=== PATIENT | male | born 1950 | race Hispanic/Latino ===

== ENCOUNTER 2017-08-25 06:00 | Day surgery (SDC) | payer MEDICARE, BC ==
[2017-08-25 06:53] VITALS: BMI 20.5
[2017-08-25] MEDS ORDERED: Propofol 10 mg/ml Inj (20 ML) ONE (07:53)
[2017-08-25] MEDS ORDERED: Midazolam 2 MG/2 ML VIAL ONE (07:54)
[2017-08-25] MEDS ORDERED: Lactated Ringer's 1,000 ML IV ONE (07:55)
[2017-08-25 08:45] VITALS: TEMP 98.4
[2017-08-25 09:06] VITALS: RESP 12; O2SAT 99
[2017-08-25 09:21] VITALS: BP 110/70; PULSE 88
== END 2017-08-25 12:55 | disposition home or self-care (01) ==
LOC: C.ENDO 06:00
PROVIDERS: ATTEND Internal Medicine Gastroenterology
DX: D12.2 Benign neoplasm of ascending colon (principal); D12.5 Benign neoplasm of sigmoid colon; K57.30 Diverticulosis of large intestine without perforation or abscess without bleeding; K64.0 First degree hemorrhoids; K62.89 Other specified diseases of anus and rectum
CPT/HCPCS: 45380; 45385; 88305; J2001; J2250; J2704; J7120

== ENCOUNTER 2018-02-19 02:49 | Emergency (ER) | payer MEDICARE, BC ==
[2018-02-19 02:50] VITALS: BMI 20.5
[2018-02-19 03:09] VITALS: RESP 20; O2SAT 98
--- NOTE | 2018-02-19 03:10 | C.PDOC ---
History Of Present Illness 67 year old male with PMHx with BPH presents to the ED c/o worsening ability to urinate and narrow stream. Patient reports he usually sees a urologist. Patient also noticed some frequency and urgency. Patient denies dysuria, hematuria, back pain, fever, chills, nausea, vomit, diarrhea. Chief Complaint (Nursing): Male Genitourinary History Per: Patient History/Exam Limitations: no limitations Onset/Duration Of Symptoms: Days Current Symptoms Are (Timing): Still Present Quality Of Discomfort: "Pain" Associated Symptoms: Urinary Symptoms Recent travel outside of the [place]: No Additional History Per: Patient Past Medical History Reviewed: Historical Data, Nursing Documentation, Vital Signs Vital Signs: Last Vital Signs Temp 97.6 F 02/19/18 05:39 Pulse 81 02/19/18 05:39 Resp 20 02/19/18 05:39 BP 133/78 02/19/18 05:39 Pulse Ox 98 02/19/18 05:39 - Medical History PMH: HTN, Hypercholesterolemia Denies: Chronic Kidney Disease Surgical History: No Surg Hx - [facility] Procedures ENDOSC POLYPECTOMY OF LG INTEST (11/08/13) Family History: States: Unknown Family Hx - Social History Hx Alcohol Use: Yes Hx Substance Use: No - Immunization History Hx Tetanus Toxoid Vaccination: No Hx Influenza Vaccination: No Hx Pneumococcal Vaccination: No Review Of Systems Constitutional: Negative for: Fever, Chills Cardiovascular: Negative for: Chest Pain Respiratory: Negative for: Shortness of Breath Gastrointestinal: Positive for: Abdominal Pain. Negative for: Nausea, Vomiting Genitourinary: Positive for: Frequency. Negative for: Dysuria, Hematuria Musculoskeletal: Negative for: Back Pain Skin: Negative for: Rash Physical Exam - Physical Exam Appears: Non-toxic, No Acute Distress Skin: Normal Color, Warm, Dry Head: Atraumatic, Normacephalic Eye(s): bilateral: Normal Inspection Oral Mucosa: Moist Neck: Normal ROM, Supple Chest: Symmetrical Cardiovascular: Rhythm Regular Respiratory: Normal Breath Sounds, No Rales, No Rhonchi, No Wheezing Gastrointestinal/Abdominal: Soft, Tenderness (mild suprapubic, fullness, firmness), No Guarding, No Rebound Back: Normal Inspection, No CVA Tenderness Male Genital: No Testicular Tenderness, No Testicular Swelling, Circumcised Extremity: Normal ROM, No Tenderness, No Swelling Neurological/Psych: Oriented x3, Normal Speech Gait: Steady ED Course And Treatment O2 Sat by Pulse Oximetry: 98 (ON RA) Pulse Ox Interpretation: Normal Medical Decision Making Medical Decision Making: Impression: urinary retention BPH vs UTI Plan: * UA * Bladder scan * Urine culture Disposition - Disposition Referrals: Ti Deshpande MD [Staff Provider] - Disposition: HOME/ ROUTINE Disposition Time: 06:39 Condition: FAIR Instructions: Urinary Retention Forms: [facility] [employer] (Welsh) Print Language: TURKISH - Clinical Impression Clinical Impression: Urinary (tract) obstruction - Scribe Statement The provider has reviewed the documentation as recorded by the Scribe Micha Medellin All medical record entries made by the Scribe were at my direction and personally dictated by me. I have reviewed the chart and agree that the record accurately reflects my personal performance of the history, physical exam, medical decision making, and the department course for this patient. I have also personally directed, reviewed, and agree with the discharge instructions and disposition.
[2018-02-19 03:40] LABS: URINE BILIRUBIN NEGATIVE (NEGATIVE); URINE BLOOD NEGATIVE (NEGATIVE); URINE CLARITY Clear (Clear); URINE COLOR Straw (YELLOW); URINE GLUCOSE (UA) NORMAL (Normal); URINE LEUKOCYTE ESTERASE NEG Leu/uL (Negative); URINE PROTEIN NEGATIVE (NEGATIVE); URINE UROBILINOGEN NORMAL mg/dL (0.2-1.0)
[2018-02-19 05:40] VITALS: BP 133/78; PULSE 81; TEMP 97.6
== END 2018-02-19 05:42 | disposition home or self-care (01) ==
LOC: C.ER 02:49
DX: N13.9 Obstructive and reflux uropathy, unspecified (principal)

== ENCOUNTER 2018-02-19 15:46 | Emergency (ER) | payer MEDICARE, BC ==
[2018-02-19 15:49] VITALS: BMI 20.5
[2018-02-19 16:12] VITALS: RESP 18
--- NOTE | 2018-02-19 17:15 | C.PDOC ---
History Of Present Illness 67-year-old male presents to the emergency department complaining of urinary retention since this morning. He was seen in ED overnight, had a bladder scan which confirmed urinary retention, and UA that was negative for UTI. Patient had a cabrera catheter inserted but then requested its removal prior to discharge. He denies fever, nausea/vomiting, diarrhea. Time Seen by Provider: 02/19/18 16:05 Chief Complaint (Nursing): Male Genitourinary History Per: Patient History/Exam Limitations: no limitations Current Symptoms Are (Timing): Still Present Severity: Moderate Quality Of Discomfort: "Pain" Past Medical History Reviewed: Historical Data, Nursing Documentation, Vital Signs Vital Signs: Last Vital Signs Temp 98.6 F 02/19/18 17:49 Pulse 85 02/19/18 17:49 Resp 18 02/19/18 17:49 BP 146/80 02/19/18 17:49 Pulse Ox 100 02/19/18 17:49 - Medical History PMH: HTN, Hypercholesterolemia - [facility] Procedures ENDOSC POLYPECTOMY OF LG INTEST (11/08/13) Family History: States: No Known Family Hx - Social History Hx Alcohol Use: Yes Hx Substance Use: No - Immunization History Hx Tetanus Toxoid Vaccination: No Hx Influenza Vaccination: Yes Hx Pneumococcal Vaccination: Yes Review Of Systems Constitutional: Negative for: Fever, Chills Gastrointestinal: Positive for: Abdominal Pain (suprapubic discomfort/pain). Negative for: Nausea, Vomiting Genitourinary: Positive for: Other (urinary retention) Skin: Negative for: Rash Physical Exam - Physical Exam Appears: Well, Non-toxic, No Acute Distress Skin: Warm, Dry, No Rash Eye(s): bilateral: Normal Inspection Oral Mucosa: Moist Cardiovascular: Rhythm Regular Respiratory: Normal Breath Sounds, No Rales, No Rhonchi, No Wheezing Gastrointestinal/Abdominal: Bowel Sounds, Soft, Tenderness (Mild, suprapubic TTP and distension, (-) McBurney's), No Guarding, No Rebound Extremity: Normal ROM Neurological/Psych: Oriented x3 ED Course And Treatment O2 Sat by Pulse Oximetry: 98 (RA) Pulse Ox Interpretation: Normal Progress Note: Cabrera catheter inserted by nurse - 1500 mL of clear urine drained. Patient felt immediate relief of his discomfort. UA from earlier today reviewed - no evidence of UTI, no need for antibiotics. Patient given Rx for flomax and instructed to follow up with Dr. Deshpande as scheduled. Cabrera leg bag applied by nurse. Patient understands he should return to ED if symptoms worsen. Reassessment Condition: Improved - Physician Consult Information Physician Contacted: Ti Deshpande Outcome Of Conversation: Spoke with patient's urologist, he agrees with discharge home on Flomax and follow up with him in the office. Disposition Counseled Patient/Family Regarding: Studies Performed, Diagnosis, Need For Followup, Rx Given - Disposition Referrals: Ti Deshpande MD [Staff Provider] - Disposition: HOME/ ROUTINE Disposition Time: 17:30 Condition: STABLE Additional Instructions: FOLLOW UP WITH DR TI DESHPANDE TOMORROW AT 8:30AM IN [place] OFF[facility] USE MEDICATIONS DIRECTED RETURN TO ER IF YOU HAVE ANY CONCERNING SYMPTOMS Prescriptions: Phenazopyridine [Pyridium] 100 mg PO TID #9 tab Tamsulosin [Flomax] 0.4 mg PO DAILY #5 cap Instructions: Urinary Retention (DC) Forms: [employer] (Thai) Print Language: MACEDONIAN - Clinical Impression Clinical Impression: Urinary retention - Scribe Statement The provider has reviewed the documentation as recorded by the Scribe (Yamile Deluca) All medical record entries made by the Scribe were at my direction and personally dictated by me. I have reviewed the chart and agree that the record accurately reflects my personal performance of the history, physical exam, medical decision making, and the department course for this patient. I have also personally directed, reviewed, and agree with the discharge instructions and disposition.
[2018-02-19 17:50] VITALS: BP 146/80; PULSE 85; TEMP 98.6
[2018-02-21 18:17] VITALS: O2SAT 98
== END 2018-02-19 17:50 | disposition home or self-care (01) ==
LOC: C.ER 15:46
DX: R33.9 Retention of urine, unspecified (principal)

== ENCOUNTER 2018-05-15 09:52 | Inpatient (IN) | payer MEDICARE, BC ==
[2018-05-15 09:52] VITALS: BMI 20.5
[2018-05-15] MEDS ORDERED: Sodium Chloride 0.9% 1,000 ML IV ONE (10:18)
--- NOTE | 2018-05-15 10:26 | C.PDOC ---
History Of Present Illness 68yo male, with history of hypertension, comes to ER stating he has had watery diarrhea x 3 days. Patient reports he has over 5 episodes over the past 3 days and feels dehydrated. He denies any fever, chills, abdominal pain, vomiting, or weakness. Patient also denies any new foods, new antibiotics use, recent travels or known sick contact. No other medical complaints. PMD: Juan Daniel Ridley Time Seen by Provider: 05/15/18 10:10 Chief Complaint (Nursing): Abdominal Pain History Per: Patient History/Exam Limitations: no limitations Onset/Duration Of Symptoms: Days (3) Current Symptoms Are (Timing): Still Present Associated Symptoms: Diarrhea. denies: Fever, Chills, Nausea, Vomiting, Loss Of Appetite, Back Pain, Chest Pain, Constipation, Urinary Symptoms Additional History Per: Patient Past Medical History Reviewed: Historical Data, Nursing Documentation, Vital Signs Vital Signs: Last Vital Signs Temp 100.3 F H 05/15/18 17:52 Pulse 110 H 05/15/18 17:52 Resp 18 05/15/18 17:52 BP 121/71 05/15/18 17:52 Pulse Ox 98 05/15/18 17:52 - Medical History PMH: HTN, Hypercholesterolemia Denies: Chronic Kidney Disease Surgical History: No Surg Hx - [facility] Procedures ENDOSC POLYPECTOMY OF LG INTEST (11/08/13) Family History: States: No Known Family Hx - Social History Hx Alcohol Use: Yes Hx Substance Use: No - Immunization History Hx Tetanus Toxoid Vaccination: No Hx Influenza Vaccination: Yes Hx Pneumococcal Vaccination: Yes Review Of Systems Except As Marked, All Systems Reviewed And Found Negative. Constitutional: Negative for: Fever, Chills Cardiovascular: Negative for: Chest Pain Respiratory: Negative for: Shortness of Breath Gastrointestinal: Positive for: Diarrhea. Negative for: Nausea, Vomiting, Abdominal Pain Genitourinary: Negative for: Dysuria Musculoskeletal: Negative for: Back Pain Neurological: Negative for: Weakness Physical Exam - Physical Exam Appears: Non-toxic, No Acute Distress Skin: Normal Color, Warm Head: Atraumatic, Normacephalic Eye(s): bilateral: Normal Inspection Neck: Normal ROM, Supple Chest: Symmetrical Cardiovascular: Rhythm Regular Respiratory: Normal Breath Sounds Gastrointestinal/Abdominal: Normal Exam, Soft, No Tenderness, No Mass, No Guardi ng, No Rebound Extremity: Normal ROM Neurological/Psych: Oriented x3 ED Course And Treatment - Laboratory Results Result Diagrams: 05/15/18 14:25 05/15/18 14:25 Medical Decision Making Medical Decision Making: Assessment: Diarrhea x 3 days Plan: * Labs * Urinalysis * XR Obstructive series * IV Fluids 1L 12:28 CXR FINDINGS: CHEST: Lungs: Hyperinflated lungs with flattened diaphragms. Clear. Cardiovascular: Atherosclerotic aortic calcifications. Normal size heart. No pulmonary vascular congestion. Pleura: No pleural fluid. No pneumothorax. Other findings: None. ABDOMEN AND PELVIS: Bowel: Unremarkable bowel gas pattern. No evidence of mechanical obstruction. Free air: None. Bones: Unremarkable. Other findings: None. IMPRESSION: Unremarkable radiographs of chest and abdomen. No evidence of mechanical bowel obstruction. 13:28 Labs reviewed, significant for bandemia. CT Abdomen/Pelvis ordered 16:21 CT Study done secondary to bandemia, however repeat labs shows no bandemia; rest values within normal limits. Previous value attributed to lab error. 16:36 CT Abdomen/Pelvis FINDINGS: LOWER THORAX: The visualized lungs are clear. LIVER: Normal in size. No intrahepatic ductal dilatation. GALLBLADDER AND BILE DUCTS: No calcified gallstones. No biliary dilatation PANCREAS: Normal in size. No ductal dilatation. SPLEEN: Normal in size. ADRENALS: Normal in size. No discrete nodule. KIDNEYS AND URETERS: Normal in size without nephrolithiasis. No hydronephrosis. VASCULATURE: No aortic aneurysm. BOWEL: There are fluid-filled mildly dilated small bowel loops and fluid in the colon. There is also fluid in the colon. There is sigmoid diverticulosis. There is apparent moderate mural thickening in the sigmoid colon. APPENDIX: Normal appendix. PERITONEUM: No free fluid. No free air. LYMPH NODES: No enlarged lymph nodes. BLADDER: The urinary bladder is partially decompressed and there is severe circumferential mural thickening of the bladder wall. REPRODUCTIVE: There is severe enlargement of the prostate gland with median lobe hypertrophy and mass effect on the base of the urinary bladder with bladder outlet obstruction. BONES: No acute fracture. Severe degenerative disc disease in the lower lumbar spine, worse at L5-S1. OTHER FINDINGS: None. IMPRESSION: 1. Fluid-filled mildly dilated small bowel loops and fluid in the colon likely related to non-specific infectious/inflammatory enterocolitis. 2. Sigmoid diverticulosis. Apparent moderate circumferential mural thickening in the sigmoid colon is nonspecific and could be related to underdistention however mild superimposed acute diverticulitis cannot be excluded. Clinical follow-up is advised. 3. Severe enlargement of the prostate gland and mass effect on the base of the urinary bladder. Severe circumferential mural thickening of the urinary bladder wall could be related to underdistention however cystitis is also a consideration. Please correlate with PSA levels and urine analysis. 17:[address] Epstein and patient to be admitted under her service due to acute kidney injury, diarrhea, hyponatremia Disposition Discussed With Dr.: Gracie Epstein Doctor Will See Patient In The: Hospital Counseled Patient/Family Regarding: Studies Performed, Diagnosis - Disposition Disposition: HOSPITALIZED Disposition Time: 17:20 Condition: FAIR - Clinical Impression Clinical Impression: Acute kidney injury, Diarrhea, Hyponatremia - Scribe Statement The provider has reviewed the documentation as recorded by the Sathish Arredondo Provider Attestation: All medical record entries made by the Sathish were at my direction and personally dictated by me. I have reviewed the chart and agree that the record accurately reflects my personal performance of the history, physical exam, medical decision making, and the department course for this patient. I have also personally directed, reviewed, and agree with the discharge instructions and disposition.
[2018-05-15 10:38] LABS: BASO # 0.1 K/uL (0.0-0.2); EOS # 0.1 K/uL (0.0-0.7); EOS % 0.5 % (0.0-4.0); HEMOGLOBIN 15.1 g/dL (12.0-18.0); LYMPH # 0.7 K/uL (1.0-4.3); LYMPH % 6.7 % (20.0-40.0); MEAN CELL VOLUME 98.3 fL (80.0-94.0); MEAN CORPUSCULAR HEMOGLOBIN 34.6 pg (27.0-31.0); MEAN CORPUSCULAR HGB CONC 35.1 g/dL (33.0-37.0); MEAN PLATELET VOLUME 7.3 fL (7.2-11.7); MONO # 1.1 K/uL (0.0-0.8); MONO % 10.1 % (0.0-10.0); NEUT # 8.8 K/uL (1.8-7.0); NEUT % 81.7 % (50.0-75.0); PLATELET COUNT 311 K/uL (130-400); RBC 4.38 Mil/uL (4.40-5.90); RED CELL DISTRIBUTION WIDTH 13.3 % (11.5-14.5); WHITE BLOOD COUNT 10.7 K/uL (4.8-10.8)
[2018-05-15] MEDS ORDERED: Sodium Chloride 0.9% 1,000 ML ONE (10:43)
[2018-05-15 10:54] LABS: ALB/GLOB RATIO 1.5 (1.0-2.1); ALBUMIN 4.8 g/dL (3.5-5.0); CALCIUM 9.5 mg/dl (8.6-10.4)
[2018-05-15 11:24] LABS: BANDS 34 % (0-2); LYMPHOCYTE 8 % (20-40); METAMYELOCYTE 1 % (0-0); MONOCYTE 12 % (0-10); MYELOCYTE 1 % (0-0); PLATELET ESTIMATE NORMAL (NORMAL); REACTIVE LYMPHOCYTES 2 % (0-0); TOTAL CELLS COUNTED 100
[2018-05-15 11:25] LABS: LARGE PLATELETS PRESENT; TOXIC GRANULATION PRESENT
[2018-05-15 11:26] LABS: NEUTROPHIL 42 % (50-75)
--- NOTE | 2018-05-15 12:30 | RAD ---
Date of service: 05/15/2018 PROCEDURE: Radiographs of the chest and abdomen (obstructive series) HISTORY: abd pain COMPARISON: No prior. TECHNIQUE: AP radiograph of the chest, with upright and supine radiographs of the abdomen. FINDINGS: CHEST: Lungs: Hyperinflated lungs with flattened diaphragms. Clear. Cardiovascular: Atherosclerotic aortic calcifications. Normal size heart. No pulmonary vascular congestion. Pleura: No pleural fluid. No pneumothorax. Other findings: None. ABDOMEN AND PELVIS: Bowel: Unremarkable bowel gas pattern. No evidence of mechanical obstruction. Free air: None. Bones: Unremarkable. Other findings: None. IMPRESSION: Unremarkable radiographs of chest and abdomen. No evidence of mechanical bowel obstruction.
[2018-05-15 14:35] LABS: BASO # 0.1 K/uL (0.0-0.2); BASO % 0.8 % (0.0-2.0); EOS % 0.4 % (0.0-4.0); HEMOGLOBIN 13.7 g/dL (12.0-18.0); LYMPH # 0.6 K/uL (1.0-4.3); MEAN CORPUSCULAR HEMOGLOBIN 34.8 pg (27.0-31.0); MEAN CORPUSCULAR HGB CONC 35.5 g/dL (33.0-37.0); MEAN PLATELET VOLUME 7.5 fL (7.2-11.7); NEUT # 6.6 K/uL (1.8-7.0); NEUT % 79.8 % (50.0-75.0); NRBC % 0.1 % (0.0-2.0); PLATELET COUNT 277 K/uL (130-400); RBC 3.95 Mil/uL (4.40-5.90); RED CELL DISTRIBUTION WIDTH 12.9 % (11.5-14.5); WHITE BLOOD COUNT 8.3 K/uL (4.8-10.8)
[2018-05-15 14:54] LABS: ALB/GLOB RATIO 1.3 (1.0-2.1); ALBUMIN 3.9 g/dL (3.5-5.0); CALCIUM 8.4 mg/dl (8.6-10.4)
[2018-05-15 15:41] LABS: SQUAMOUS EPITHIAL 2 /hpf (0-5); URINE AMORPHOUS SEDIMENT RARE /ul (<OCC); URINE BACTERIA RARE (<OCC); URINE BILIRUBIN NEGATIVE (NEGATIVE); URINE BLOOD NEGATIVE (NEGATIVE); URINE CLARITY Hazy (Clear); URINE COLOR Amber (YELLOW); URINE GLUCOSE (UA) NORMAL (Normal); URINE LEUKOCYTE ESTERASE NEG Leu/uL (Negative); URINE PROTEIN NEGATIVE (NEGATIVE); URINE UROBILINOGEN NORMAL mg/dL (0.2-1.0)
--- NOTE | 2018-05-15 16:51 | CT ---
Date of service: 05/15/2018 PROCEDURE: CT Abdomen and Pelvis without intravenous contrast HISTORY: diarrhea COMPARISON: None. TECHNIQUE: CT scan of the abdomen and pelvis was performed without administration of intravenous contrast. Oral contrast was not administered. Coronal and sagittal reformatted images were obtained. . Radiation dose: Total exam DLP = 224.14 mGy-cm. This CT exam was performed using one or more of the following dose reduction techniques: Automated exposure control, adjustment of the mA and/or kV according to patient size, and/or use of iterative reconstruction technique. FINDINGS: LOWER THORAX: The visualized lungs are clear. LIVER: Normal in size. No intrahepatic ductal dilatation. GALLBLADDER AND BILE DUCTS: No calcified gallstones. No biliary dilatation PANCREAS: Normal in size. No ductal dilatation. SPLEEN: Normal in size. ADRENALS: Normal in size. No discrete nodule. KIDNEYS AND URETERS: Normal in size without nephrolithiasis. No hydronephrosis. VASCULATURE: No aortic aneurysm. BOWEL: There are fluid-filled mildly dilated small bowel loops and fluid in the colon. There is also fluid in the colon. There is sigmoid diverticulosis. There is apparent moderate mural thickening in the sigmoid colon. APPENDIX: Normal appendix. PERITONEUM: No free fluid. No free air. LYMPH NODES: No enlarged lymph nodes. BLADDER: The urinary bladder is partially decompressed and there is severe circumferential mural thickening of the bladder wall. REPRODUCTIVE: There is severe enlargement of the prostate gland with median lobe hypertrophy and mass effect on the base of the urinary bladder with bladder outlet obstruction. BONES: No acute fracture. Severe degenerative disc disease in the lower lumbar spine, worse at L5-S1. OTHER FINDINGS: None. IMPRESSION: 1. Fluid-filled mildly dilated small bowel loops and fluid in the colon likely related to non-specific infectious/inflammatory enterocolitis. 2. Sigmoid diverticulosis. Apparent moderate circumferential mural thickening in the sigmoid colon is nonspecific and could be related to underdistention however mild superimposed acute diverticulitis cannot be excluded. Clinical follow-up is advised. 3. Severe enlargement of the prostate gland and mass effect on the base of the urinary bladder. Severe circumferential mural thickening of the urinary bladder wall could be related to underdistention however cystitis is also a consideration. Please correlate with PSA levels and urine analysis.
[2018-05-15 17:45] LABS: BANDS 38 % (0-2); LYMPHOCYTE 8 % (20-40); MONOCYTE 13 % (0-10); NEUTROPHIL 41 % (50-75); PLATELET ESTIMATE NORMAL (NORMAL); TOTAL CELLS COUNTED 100
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
[2018-05-15] MEDS ORDERED: Ciprofloxacin 400mg/200ml D5W 400 MG/200 ML BAG IVPB SCH (18:45)
[2018-05-15] MEDS ORDERED: metroNIDAZOLE IV 500 mg/100 ml 500 MG/100 ML BAG ONE (18:53)
[2018-05-15] MEDS: metroNIDAZOLE IV 500 mg/100 ml 500 MG/100 ML BAG IVPB SCH (18:59)
[2018-05-15 19:27] VITALS: RESP 20
[2018-05-15] MEDS: Potassium Ch 20mEq in D5-1/2NS 1,000 ML IV SCH (20:17)
[2018-05-15 20:39] LABS: VENOUS BLOOD GAS BASE EXCESS -7.7 mmol/L (0.0-2.0); VENOUS BLOOD GAS PCO2 29 mmHg (40-60); VENOUS BLOOD GAS PO2 69 mm/Hg (30-55); VENOUS BLOOD PH 7.36 (7.32-7.43)
[2018-05-15] MEDS: Piperacill/Tazo 2.25gm in Dex 2.25 GM/50 ML BAG IVPB SCH (22:49)
--- NOTE | 2018-05-15 23:26 | CP.PCM.CON ---
History of Present Illness - History of Present Illness History of Present Illness: pt is seen and examined, full consult is dictated #[id number] labs reviewed 1. TRACEY 2. dehydration sec to GI loss 3. Diarrhea r/o food poisioning 4. r/o divericulitis 5. BPH agree with ivf c/w ivf , check blood c/s urine c/s, stool for ova, parasite, c/s, uriene lytes , osm, cr Past Patient History - Infectious Disease Hx of Infectious Diseases: None - Past Medical History & Family History Past Medical History?: Yes - Past Social History Smoking Status: Former Smoker - CARDIAC Hx Cardiac Disorders: Yes Hx Hypercholesterolemia: Yes Hx Hypertension: Yes - PULMONARY Hx Respiratory Disorders: No - NEUROLOGICAL Hx Neurological Disorder: No - HEENT Hx HEENT Problems: No - RENAL Hx Chronic Kidney Disease: No - ENDOCRINE/METABOLIC Hx Endocrine Disorders: No - HEMATOLOGICAL/ONCOLOGICAL Hx Blood Disorders: No - INTEGUMENTARY Hx Dermatological Problems: No - MUSCULOSKELETAL/RHEUMATOLOGICAL Hx Falls: No - GASTROINTESTINAL Hx Gastrointestinal Disorders: No Hx Hemorrhoids: Yes - GENITOURINARY/GYNECOLOGICAL Hx Genitourinary Disorders: No - PSYCHIATRIC Hx Substance Use: No - SURGICAL HISTORY Hx Surgeries: Yes Hx Herniorrhaphy: Yes - ANESTHESIA Hx Anesthesia: Yes Hx Anesthesia Reactions: No Hx Malignant Hyperthermia: No Has any member of the family had a problem w/ anesthesia?: No Meds Allergies/Adverse Reactions: Allergies Allergy/AdvReac Type Severity Reaction Status Date / Time No Known Allergies Allergy Verified 02/19/18 16:08 - Medications Medications: Current Medications Heparin Sodium (Porcine) (Heparin) 5,000 units SC Q8 [facility] Last Admin: 05/15/18 22:43 Dose: 5,000 units Potassium Chloride/Dextrose/Sod Cl (Potassium Chl 20 Meq In D5-1/2ns) 1,000 mls @ 100 mls/hr IV .Q10H [facility] Last Admin: 05/15/18 20:17 Dose: 100 mls/hr Metronidazole (Flagyl) 500 mg in 100 mls @ 100 mls/hr IVPB Q8H [facility] PRN Reason: Protocol Last Admin: 05/15/18 18:59 Dose: 100 mls/hr Piperacillin Sod/Tazobactam Sod (Zosyn 2.25 Gm Iv Premix) 2.25 gm in 50 mls @ 100 mls/hr IVPB Q8 [facility] PRN Reason: Protocol Last Admin: 05/15/18 22:49 Dose: 100 mls/hr Lactobacillus Acidophilus (Bacid Acidophilus) 1 cap PO BID [facility] Tamsulosin HCl (Flomax) 0.4 mg PO DAILY [facility] Results - Vital Signs Recent Vital Signs: Last Vital Signs Temp 98.9 F 05/15/18 19:26 Pulse 71 05/15/18 19:26 Resp 20 05/15/18 19:26 BP 111/64 05/15/18 19:26 Pulse Ox 98 05/15/18 21:02 - Labs Result Diagrams: 05/15/18 14:25 05/15/18 14:25 Labs: Laboratory Results - last 24 hr 05/15/18 05/15/18 05/15/18 10:35 10:35 14:25 WBC 10.7 8.3 RBC 4.38 L 3.95 L Hgb 15.1 13.7 Hct 43.1 38.7 MCV 98.3 H 98.0 H MCH 34.6 H 34.8 H MCHC 35.1 35.5 RDW 13.3 12.9 Plt Count 311 277 MPV 7.3 7.5 Neut % (Auto) 81.7 H 79.8 H Lymph % (Auto) 6.7 L 7.0 L [place] % (Auto) 10.1 H 12.0 H Eos % (Auto) 0.5 0.4 Baso % (Auto) 1.0 0.8 Neut # (Auto) 8.8 H 6.6 Lymph # (Auto) 0.7 L 0.6 L [place] # (Auto) 1.1 H 1.0 H Eos # (Auto) 0.1 0.0 Baso # (Auto) 0.1 0.1 Neutrophils % (Manual) 42 L 41 L Band Neutrophils % 34 H* 38 H* Lymphocytes % (Manual) 8 L 8 L Reactive Lymphs % 2 H Monocytes % (Manual) 12 H 13 H Metamyelocytes % 1 H Myelocytes % 1 H Toxic Granulation Present Dohle Bodies Present Platelet Estimate Normal Normal Large Platelets Present RBC Morphology Normal pO2 VBG pH VBG pCO2 VBG HCO3 VBG Total CO2 VBG O2 Sat (Calc) VBG Base Excess VBG Potassium Glucose Lactate Sodium 130 L Potassium 4.9 Chloride 90 L Carbon Dioxide 23 Anion Gap 22 H BUN 42 H Creatinine 3.3 H Est GFR ( Amer) 23 Est GFR (Non-Af Amer) 19 Random Glucose 122 H Calcium 9.5 Total Bilirubin 0.7 AST 34 ALT 30 Alkaline Phosphatase 47 Total Protein 7.9 Albumin 4.8 Globulin 3.2 Albumin/Globulin Ratio 1.5 Lipase 139 Procalcitonin Venous Blood Potassium Urine Color Urine Clarity Urine pH Ur Specific [place] Urine Protein Urine Glucose (UA) Urine Ketones Urine Blood Urine Nitrate Urine Bilirubin Urine Urobilinogen Ur Leukocyte Esterase Urine WBC (Auto) Urine RBC (Auto) Ur Squamous Epith Cells Amorphous Sediment Urine Bacteria Hyaline Casts C. difficile Ag & Toxin 05/15/18 05/15/18 05/15/18 14:25 14:29 15:32 WBC RBC Hgb Hct MCV MCH MCHC RDW Plt Count MPV Neut % (Auto) Lymph % (Auto) Ness % (Auto) Eos % (Auto) Baso % (Auto) Neut # (Auto) Lymph # (Auto) Ness # (Auto) Eos # (Auto) Baso # (Auto) Neutrophils % (Manual) Band Neutrophils % Lymphocytes % (Manual) Reactive Lymphs % Monocytes % (Manual) Metamyelocytes % Myelocytes % Toxic Granulation Dohle Bodies Platelet Estimate Large Platelets RBC Morphology pO2 VBG pH VBG pCO2 VBG HCO3 VBG Total CO2 VBG O2 Sat (Calc) VBG Base Excess VBG Potassium Glucose Lactate Sodium 127 L Potassium 4.1 Chloride 92 L Carbon Dioxide 20 L Anion Gap 20 BUN 44 H Creatinine 3.3 H Est GFR ( Amer) 23 Est GFR (Non-Af Amer) 19 Random Glucose 109 Calcium 8.4 L Total Bilirubin 0.8 AST 44 ALT 31 Alkaline Phosphatase 38 Total Protein 7.0 Albumin 3.9 Globulin 3.1 Albumin/Globulin Ratio 1.3 Lipase Procalcitonin Venous Blood Potassium Urine Color Renuka Urine Clarity Hazy Urine pH 5.0 Ur Specific [place] 1.014 Urine Protein Negative Urine Glucose (UA) Normal Urine Ketones Negative Urine Blood Negative Urine Nitrate Negative Urine Bilirubin Negative Urine Urobilinogen Normal Ur Leukocyte Esterase Neg Urine WBC (Auto) 3 Urine RBC (Auto) 1 Ur Squamous Epith Cells 2 Amorphous Sediment Rare H Urine Bacteria Rare Hyaline Casts 6-10 H C. difficile Ag & Toxin Negative 05/15/18 05/15/18 20:30 20:31 WBC RBC Hgb Hct MCV MCH MCHC RDW Plt Count MPV Neut % (Auto) Lymph % (Auto) Ness % (Auto) Eos % (Auto) Baso % (Auto) Neut # (Auto) Lymph # (Auto) Ness # (Auto) Eos # (Auto) Baso # (Auto) Neutrophils % (Manual) Band Neutrophils % Lymphocytes % (Manual) Reactive Lymphs % Monocytes % (Manual) Metamyelocytes % Myelocytes % Toxic Granulation Dohle Bodies Platelet Estimate Large Platelets RBC Morphology pO2 69 H VBG pH 7.36 VBG pCO2 29 L VBG HCO3 18.8 VBG Total CO2 17.3 L VBG O2 Sat (Calc) 94.8 H VBG Base Excess -7.7 L VBG Potassium 3.7 Glucose 136 H Lactate 1.1 Sodium 126.0 L Potassium Chloride 95.0 L Carbon Dioxide Anion Gap BUN Creatinine Est GFR ( Amer) Est GFR (Non-Af Amer) Random Glucose Calcium Total Bilirubin AST ALT Alkaline Phosphatase Total Protein Albumin Globulin Albumin/Globulin Ratio Lipase Procalcitonin 2.21 H Venous Blood Potassium 3.7 Urine Color Urine Clarity Urine pH Ur Specific [place] Urine Protein Urine Glucose (UA) Urine Ketones Urine Blood Urine Nitrate Urine Bilirubin Urine Urobilinogen Ur Leukocyte Esterase Urine WBC (Auto) Urine RBC (Auto) Ur Squamous Epith Cells Amorphous Sediment Urine Bacteria Hyaline Casts C. difficile Ag & Toxin
[2018-05-16] MEDS: metroNIDAZOLE IV 500 mg/100 ml 500 MG/100 ML BAG IVPB SCH ×3 (02:59→18:45)
[2018-05-16 06:01] LABS: BASO % 0.5 % (0.0-2.0); EOS # 0.2 K/uL (0.0-0.7); EOS % 2.2 % (0.0-4.0); HEMOGLOBIN 13.5 g/dL (12.0-18.0); LYMPH # 0.4 K/uL (1.0-4.3); LYMPH % 4.4 % (20.0-40.0); MEAN CELL VOLUME 98.2 fL (80.0-94.0); MEAN CORPUSCULAR HEMOGLOBIN 34.5 pg (27.0-31.0); MEAN CORPUSCULAR HGB CONC 35.1 g/dL (33.0-37.0); MEAN PLATELET VOLUME 7.7 fL (7.2-11.7); MONO # 1.1 K/uL (0.0-0.8); MONO % 12.6 % (0.0-10.0); NEUT # 7.3 K/uL (1.8-7.0); NEUT % 80.3 % (50.0-75.0); NRBC % 0.2 % (0.0-2.0); PLATELET COUNT 305 K/uL (130-400); RBC 3.91 Mil/uL (4.40-5.90); RED CELL DISTRIBUTION WIDTH 13.3 % (11.5-14.5)
[2018-05-16] MEDS: Piperacill/Tazo 2.25gm in Dex 2.25 GM/50 ML BAG IVPB SCH ×3 (06:11→21:25)
[2018-05-16 06:16] LABS: ALB/GLOB RATIO 1.4 (1.0-2.1); ALBUMIN 3.9 g/dL (3.5-5.0); CALCIUM 8.4 mg/dl (8.6-10.4)
[2018-05-16 07:37] LABS: SQUAMOUS EPITHIAL 1 /hpf (0-5); URINE AMORPHOUS SEDIMENT RARE /ul (<OCC); URINE BACTERIA RARE (<OCC); URINE BILIRUBIN NEGATIVE (NEGATIVE); URINE BLOOD NEGATIVE (NEGATIVE); URINE CLARITY Hazy (Clear); URINE COLOR Amber (YELLOW); URINE GLUCOSE (UA) NORMAL (Normal); URINE LEUKOCYTE ESTERASE NEG Leu/uL (Negative); URINE PROTEIN NEGATIVE (NEGATIVE); URINE UROBILINOGEN NORMAL mg/dL (0.2-1.0)
[2018-05-16 07:55] LABS: CREATININE, RANDOM URINE 200.2 mg/dL
--- NOTE | 2018-05-16 08:48 | CON ---
DATE: 05/15/2018 LOCATION: The patient is located in room 353, bed A. The patient was seen and examined initially in the emergency room. REQUESTED BY: Gracie Epstein DO REASON FOR RENAL CONSULTATION: Acute renal failure. HISTORY OF PRESENT ILLNESS: Mr. Cordova is a 68-year-old elderly male with a past medical history significant for longstanding hypertension, CKD, hyperlipidemia, BPH, diverticulosis, noted on recent colonoscopy without prior complaints or previous flare-up, who was admitted with chief complaints of watery diarrhea for two days, nonbloody diarrhea, and as per the patient, he had up to 10 times in the last two days, was dehydrated, and went to the urgent care facility, and suspected diverticulitis, and the patient was given Flagyl and Cipro, and advised to go to the emergency room. The patient is in the emergency room on bed 11. Denies any fever or chills. Denies any nausea or vomiting. Denies any abdominal pain. Denies any dysuria or frequency. Denies any hematuria, hematemesis, or hematochezia. Denies dysuria or frequency. PAST MEDICAL HISTORY: Significant for hypertension, CKD, hyperlipidemia, BPH, and diverticulosis. PAST SURGICAL HISTORY: Hernia repair more than 50 years ago. ALLERGIES: NO KNOWN DRUG ALLERGIES. SOCIAL HISTORY: The patient is a smoker. He used to smoke [id number] to two packs per day approximately for 30 years and quit about 10 years ago. Social alcohol use and no drugs. FAMILY HISTORY: Not significant. HOME MEDICATIONS: Include allopurinol, simvastatin, olmesartan, and Flomax. CURRENT MEDICATIONS: In the hospital include as follows: Bacid one capsule p.o. b.i.d., Flagyl 500 mg IV piggyback every 8 hours, Flomax 0.4 mg p.o. daily, subcutaneous heparin 5000 units every 8 hours, IV fluids D5 half normal saline with 20 mEq KCL at 100 mL per hour, and also Zosyn 2.25 g IV piggyback every 8 hours. REVIEW OF SYSTEMS: Significant for watery diarrhea, no blood, no mucous for two days, and all other review of systems are reviewed and are negative. LABORATORY DATA: His labs were reviewed. He has a creatinine about 3.3, potassium is about 4.3. . ASSESSMENT AND PLAN: In summary, Mr. Cordova is a 68-year-old elderly male with a history of hypertension, hyperlipidemia, gout, questionable chronic kidney disease, and benign prostatic hyperplasia, followed by Dr. Deshpande, who was admitted with diarrhea, watery and nonbloody for about two days, and decreased p.o. intake and dehydration. 1. Nonoliguric acute renal failure, most likely secondary to intravascular depletion, secondary to dehydration, secondary to diarrhea and gastrointestinal loss. 2. Hypertension. 3. Bandemia. Rule out diverticulitis. 4. Diverticulosis. PLAN: I agree with IV fluids D5 half normal saline with 20 mL of KCL at 100 mL per hour, and also I agree with IV Flagyl and Zosyn. I will check blood culture and urine culture report and repeat BMP in a.m. The case was discussed with Dr. Gracie Epstein in the rounds. Thank you for allowing me to participate in your patient's care. Kyle Charlton MD
[2018-05-16 09:03] LABS: BANDS 41 % (0-2); EOSINOPHIL 4 % (0-4); LYMPHOCYTE 4 % (20-40); MONOCYTE 4 % (0-10); NEUTROPHIL 47 % (50-75); TOTAL CELLS COUNTED 100
[2018-05-16 09:04] LABS: PLATELET ESTIMATE NORMAL (NORMAL)
--- NOTE | 2018-05-16 09:32 | US ---
Urinary bladder ultrasound HISTORY: Urinary retention. COMPARISON: None available. TECHNIQUE: Real-time sonography was through the urinary bladder. FINDINGS: Thick-walled urinary bladder measuring up to 8 millimeters concerning for underlying cystitis versus bladder outlet obstruction. Clinical correlation. No gross calculi identified. Right ureteral jet was not well visualized. Left ureteral jet was visualized. Prevoid bladder volume of 103 cc. Patient was unable to void. Heterogeneous and prominent prostate measuring up to 4.7 centimeters. Impression: Thick-walled urinary bladder concerning for a possible cystitis versus bladder outlet obstruction. Clinical correlation. Patient unable to void with postvoid residual of 104 cc. This would be concerning for possible bladder outlet obstruction. Clinical correlation. Heterogeneous and prominent prostate. Right ureteral jet was not well visualized.
[2018-05-16] MEDS: Lactobacillus Acidophilus 500 MU Cap PO SCH ×2 (11:06→18:45)
[2018-05-16] MEDS: Potassium Ch 20mEq in D5-1/2NS 1,000 ML IV SCH ×2 (11:25→15:21)
[2018-05-16] MEDS ORDERED: Sodium Chloride 0.9% 1,000 ML IV ONE (11:49)
--- NOTE | 2018-05-16 12:27 | CP.PCM.CON ---
History of Present Illness - History of Present Illness History of Present Illness: 68 year old male with past medical history significant diverticulosis presents with complaints of diarrhea for the past two days. Patient admits to watery brown colored, non bloody diarrhea at this time. started on empiric rx for diverticulitis stool cultures so far neg CT shows large prostate , diverticulosis PMHx- BPH Diverticulosis HLD HTN PSHX- inguinal hernia repair ~ 50 years ago per patient Fam Hx- Father had heart disease; however from complications of Parkinson's disease at the age of 68; Mother had COPD- at the age of 75 Meds- Allopurinol 20 mg daily, Simvastatin 20 mg daily, Olmesartan unknown dose, Flomax 0.4 mg PO daily Allergies- NKDA Social- admits to smoking 1.5-2ppd for approx 30 year duration - Quit 10.5 years ago.; social alcohol use- denies illicit drug use Review of Systems - Constitutional Constitutional: absent: Night Sweats, Weight Gain, Weakness - EENT Eyes: absent: Blurred Vision, Change in Vision Nose/Mouth/Throat: absent: Odynophagia, Sore Throat - Cardiovascular Cardiovascular: absent: Chest Pain, Chest Pain at Rest, Dyspnea - Respiratory Respiratory: absent: Cough, Dyspnea - Gastrointestinal Gastrointestinal: Change in Bowel Habits, Diarrhea. absent: Dyspepsia, Hematemesis, Hematochezia, Melena, Nausea, Vomiting - Genitourinary Genitourinary: Urinary Hesitance. absent: Dysuria, Urinary Frequency, Freq UTI - Reproductive: Male Additional comments: denies - Musculoskeletal Musculoskeletal: absent: Back Pain, Myalgias, Numbness, Stiffness, Tingling - Integumentary Integumentary: absent: Dry Skin, Skin Pain, Wounds - Neurological Neurological: absent: Abnormal Movements, Tingling, Tremor, Weakness - Endocrine Endocrine: absent: Fatigue, Palpitations - Hematologic/Lymphatic Hematologic: absent: Easy Bruising Past Patient History - Infectious Disease Hx of Infectious Diseases: None - Past Medical History & Family History Past Medical History?: Yes - Past Social History Smoking Status: Former Smoker - CARDIAC Hx Cardiac Disorders: Yes Hx Hypercholesterolemia: Yes Hx Hypertension: Yes - PULMONARY Hx Respiratory Disorders: No - NEUROLOGICAL Hx Neurological Disorder: No - HEENT Hx HEENT Problems: No - RENAL Hx Chronic Kidney Disease: No - ENDOCRINE/METABOLIC Hx Endocrine Disorders: No - HEMATOLOGICAL/ONCOLOGICAL Hx Blood Disorders: No - INTEGUMENTARY Hx Dermatological Problems: No - MUSCULOSKELETAL/RHEUMATOLOGICAL Hx Falls: No - GASTROINTESTINAL Hx Gastrointestinal Disorders: No Hx Hemorrhoids: Yes - GENITOURINARY/GYNECOLOGICAL Hx Genitourinary Disorders: No - PSYCHIATRIC Hx Substance Use: No - SURGICAL HISTORY Hx Surgeries: Yes Hx Herniorrhaphy: Yes - ANESTHESIA Hx Anesthesia: Yes Hx Anesthesia Reactions: No Hx Malignant Hyperthermia: No Has any member of the family had a problem w/ anesthesia?: No Meds Allergies/Adverse Reactions: Allergies Allergy/AdvReac Type Severity Reaction Status Date / Time No Known Allergies Allergy Verified 02/19/18 16:08 - Medications Medications: Current Medications Heparin Sodium (Porcine) (Heparin) 5,000 units SC Q8 [facility] Last Admin: 05/16/18 06:13 Dose: 5,000 units Potassium Chloride/Dextrose/Sod Cl (Potassium Chl 20 Meq In D5-1/2ns) 1,000 mls @ 100 mls/hr IV .Q10H [facility] Last Admin: 05/16/18 11:25 Dose: 100 mls/hr Metronidazole (Flagyl) 500 mg in 100 mls @ 100 mls/hr IVPB Q8H [facility]; Protocol Last Admin: 05/16/18 11:22 Dose: 100 mls/hr Piperacillin Sod/Tazobactam Sod (Zosyn 2.25 Gm Iv Premix) 2.25 gm in 50 mls @ 100 mls/hr IVPB Q8 [facility]; Protocol Last Admin: 05/16/18 06:11 Dose: 100 mls/hr Lactobacillus Acidophilus (Bacid Acidophilus) 1 cap PO BID [facility] Last Admin: 05/16/18 11:06 Dose: 1 cap Tamsulosin HCl (Flomax) 0.4 mg PO DAILY [facility] Last Admin: 05/16/18 11:23 Dose: 0.4 mg Physical Exam - Constitutional Appears: No Acute Distress, Chronically Ill - Head Exam Head Exam: ATRAUMATIC, NORMOCEPHALIC - Eye Exam Eye Exam: PERRL - ENT Exam ENT Exam: Mucous Membranes Dry - Neck Exam Neck exam: Negative for: Lymphadenopathy - Respiratory Exam Respiratory Exam: Decreased Breath Sounds - Cardiovascular Exam Cardiovascular Exam: REGULAR RHYTHM - GI/Abdominal Exam GI & Abdominal Exam: Diminished Bowel Sounds, Distended, Soft, Tenderness. absent: Guarding, Rebound, Rigid - Rectal Exam Rectal Exam: Deferred - Exam Exam: NORMAL INSPECTION - Extremities Exam Extremities exam: Negative for: pedal edema - Back Exam Back exam: absent: CVA tenderness (L), CVA tenderness (R) - Neurological Exam Neurological exam: Alert, CN II-XII Intact, Oriented x3, Reflexes Normal - Psychiatric Exam Psychiatric exam: Normal Mood - Skin Skin Exam: Dry Results - Vital Signs Recent Vital Signs: Last Vital Signs Temp 98.1 F 05/16/18 00:00 Pulse 95 H 05/16/18 00:00 Resp 20 05/16/18 00:00 BP 111/71 05/16/18 00:00 Pulse Ox 97 05/16/18 00:00 - Labs Result Diagrams: 05/16/18 05:43 05/16/18 05:43 Labs: Laboratory Results - last 24 hr 05/15/18 05/15/18 05/15/18 14:25 14:25 14:29 WBC 8.3 RBC 3.95 L Hgb 13.7 Hct 38.7 MCV 98.0 H MCH 34.8 H MCHC 35.5 RDW 12.9 Plt Count 277 MPV 7.5 Neut % (Auto) 79.8 H Lymph % (Auto) 7.0 L [place] % (Auto) 12.0 H Eos % (Auto) 0.4 Baso % (Auto) 0.8 Neut # (Auto) 6.6 Lymph # (Auto) 0.6 L [place] # (Auto) 1.0 H Eos # (Auto) 0.0 Baso # (Auto) 0.1 Neutrophils % (Manual) 41 L Band Neutrophils % 38 H* Lymphocytes % (Manual) 8 L Monocytes % (Manual) 13 H Eosinophils % (Manual) Platelet Estimate Normal RBC Morphology pO2 VBG pH VBG pCO2 VBG HCO3 VBG Total CO2 VBG O2 Sat (Calc) VBG Base Excess VBG Potassium Glucose Lactate Sodium 127 L Potassium 4.1 Chloride 92 L Carbon Dioxide 20 L Anion Gap 20 BUN 44 H Creatinine 3.3 H Est GFR ( Amer) 23 Est GFR (Non-Af Amer) 19 Random Glucose 109 Calcium 8.4 L Phosphorus Magnesium Total Bilirubin 0.8 AST 44 ALT 31 Alkaline Phosphatase 38 Total Protein 7.0 Albumin 3.9 Globulin 3.1 Albumin/Globulin Ratio 1.3 Prostate Specific Ag Procalcitonin Venous Blood Potassium Urine Color Urine Clarity Urine pH Ur Specific [place] Urine Protein Urine Glucose (UA) Urine Ketones Urine Blood Urine Nitrate Urine Bilirubin Urine Urobilinogen Ur Leukocyte Esterase Urine WBC (Auto) Urine RBC (Auto) Ur Squamous Epith Cells Amorphous Sediment Urine Bacteria Hyaline Casts Urine Osmolality Ur Random Creatinine Ur Random Sodium C. difficile Ag & Toxin Negative 05/15/18 05/15/18 05/15/18 15:32 20:30 20:31 WBC RBC Hgb Hct MCV MCH MCHC RDW Plt Count MPV Neut % (Auto) Lymph % (Auto) [place] % (Auto) Eos % (Auto) Baso % (Auto) Neut # (Auto) Lymph # (Auto) [place] # (Auto) Eos # (Auto) Baso # (Auto) Neutrophils % (Manual) Band Neutrophils % Lymphocytes % (Manual) Monocytes % (Manual) Eosinophils % (Manual) Platelet Estimate RBC Morphology pO2 69 H VBG pH 7.36 VBG pCO2 29 L VBG HCO3 18.8 VBG Total CO2 17.3 L VBG O2 Sat (Calc) 94.8 H VBG Base Excess -7.7 L VBG Potassium 3.7 Glucose 136 H Lactate 1.1 Sodium 126.0 L Potassium Chloride 95.0 L Carbon Dioxide Anion Gap BUN Creatinine Est GFR ( Amer) Est GFR (Non-Af Amer) Random Glucose Calcium Phosphorus Magnesium Total Bilirubin AST ALT Alkaline Phosphatase Total Protein Albumin Globulin Albumin/Globulin Ratio Prostate Specific Ag Procalcitonin 2.21 H Venous Blood Potassium 3.7 Urine Color Renuka Urine Clarity Hazy Urine pH 5.0 Ur Specific [place] 1.014 Urine Protein Negative Urine Glucose (UA) Normal Urine Ketones Negative Urine Blood Negative Urine Nitrate Negative Urine Bilirubin Negative Urine Urobilinogen Normal Ur Leukocyte Esterase Neg Urine WBC (Auto) 3 Urine RBC (Auto) 1 Ur Squamous Epith Cells 2 Amorphous Sediment Rare H Urine Bacteria Rare Hyaline Casts 6-10 H Urine Osmolality Ur Random Creatinine Ur Random Sodium C. difficile Ag & Toxin 05/16/18 05/16/18 05/16/18 05:43 05:43 06:55 WBC 9.0 RBC 3.91 L Hgb 13.5 Hct 38.4 MCV 98.2 H MCH 34.5 H MCHC 35.1 RDW 13.3 Plt Count 305 MPV 7.7 Neut % (Auto) 80.3 H Lymph % (Auto) 4.4 L [place] % (Auto) 12.6 H Eos % (Auto) 2.2 Baso % (Auto) 0.5 Neut # (Auto) 7.3 H Lymph # (Auto) 0.4 L [place] # (Auto) 1.1 H Eos # (Auto) 0.2 Baso # (Auto) 0.0 Neutrophils % (Manual) 47 L Band Neutrophils % 41 H* Lymphocytes % (Manual) 4 L Monocytes % (Manual) 4 Eosinophils % (Manual) 4 Platelet Estimate Normal RBC Morphology Normal pO2 VBG pH VBG pCO2 VBG HCO3 VBG Total CO2 VBG O2 Sat (Calc) VBG Base Excess VBG Potassium Glucose Lactate Sodium 128 L Potassium 4.2 Chloride 95 L Carbon Dioxide 20 L Anion Gap 18 BUN 49 H Creatinine 3.3 H Est GFR ( Amer) 23 Est GFR (Non-Af Amer) 19 Random Glucose 126 H Calcium 8.4 L Phosphorus 3.4 Magnesium 1.9 Total Bilirubin 0.7 AST 27 ALT 32 Alkaline Phosphatase 44 Total Protein 6.6 Albumin 3.9 Globulin 2.8 Albumin/Globulin Ratio 1.4 Prostate Specific Ag 62.2 H Procalcitonin Venous Blood Potassium Urine Color Urine Clarity Urine pH Ur Specific [place] Urine Protein Urine Glucose (UA) Urine Ketones Urine Blood Urine Nitrate Urine Bilirubin Urine Urobilinogen Ur Leukocyte Esterase Urine WBC (Auto) Urine RBC (Auto) Ur Squamous Epith Cells Amorphous Sediment Urine Bacteria Hyaline Casts Urine Osmolality 366 Ur Random Creatinine 200.2 Ur Random Sodium 20 C. difficile Ag & Toxin 05/16/18 06:55 WBC RBC Hgb Hct MCV MCH MCHC RDW Plt Count MPV Neut % (Auto) Lymph % (Auto) [place] % (Auto) Eos % (Auto) Baso % (Auto) Neut # (Auto) Lymph # (Auto) [place] # (Auto) Eos # (Auto) Baso # (Auto) Neutrophils % (Manual) Band Neutrophils % Lymphocytes % (Manual) Monocytes % (Manual) Eosinophils % (Manual) Platelet Estimate RBC Morphology pO2 VBG pH VBG pCO2 VBG HCO3 VBG Total CO2 VBG O2 Sat (Calc) VBG Base Excess VBG Potassium Glucose Lactate Sodium Potassium Chloride Carbon Dioxide Anion Gap BUN Creatinine Est GFR ( Amer) Est GFR (Non-Af Amer) Random Glucose Calcium Phosphorus Magnesium Total Bilirubin AST ALT Alkaline Phosphatase Total Protein Albumin Globulin Albumin/Globulin Ratio Prostate Specific Ag Procalcitonin Venous Blood Potassium Urine Color [place]uka Urine Clarity Hazy Urine pH 5.0 Ur Specific [place] 1.015 Urine Protein Negative Urine Glucose (UA) Normal Urine Ketones Negative Urine Blood Negative Urine Nitrate Negative Urine Bilirubin Negative Urine Urobilinogen Normal Ur Leukocyte Esterase Neg Urine WBC (Auto) 8 H Urine RBC (Auto) 2 Ur Squamous Epith Cells 1 Amorphous Sediment Rare H Urine Bacteria Rare Hyaline Casts Urine Osmolality Ur Random Creatinine Ur Random Sodium C. difficile Ag & Toxin Assessment & Plan (1) Acute kidney injury Status: Acute (2) Diarrhea Status: Acute (3) Diverticulitis Status: Acute (4) Enlarged prostate Status: Acute (5) CKD (chronic kidney disease) Status: Chronic (6) HTN (hypertension) Status: Chronic - Assessment and Plan (Free Text) Assessment: cannot rule out toxin induced enterocolitis ( food poisoning ) based on hx however diverticulitis more likely based on clinical findings await final culture reports cont IV rx for Diverticulitis- empiric
[2018-05-16] MEDS ORDERED: Iohexol 240 (50 ml) PO ONE (14:30)
--- NOTE | 2018-05-16 17:57 | CT ---
Date of service: 05/16/2018 PROCEDURE: CT Abdomen and Pelvis without intravenous contrast HISTORY: Diarrhea, hx of diverticulitis. COMPARISON: CT scan of the abdomen pelvis dated 05/15/2018. TECHNIQUE: Contiguous images were obtained from the domes of the diaphragms to the upper thighs without the administration of intravenous contrast. Oral contrast was not administered. Radiation dose: Total exam DLP = 293.1 mGy-cm. This CT exam was performed using one or more of the following dose reduction techniques: Automated exposure control, adjustment of the mA and/or kV according to patient size, and/or use of iterative reconstruction technique. FINDINGS: LOWER THORAX: Unremarkable. LIVER: Unremarkable. No gross lesion or ductal dilatation. GALLBLADDER AND BILE DUCTS: Unremarkable. PANCREAS: Unremarkable. No gross lesion or ductal dilatation. SPLEEN: Unremarkable. ADRENALS: Unremarkable. No mass. KIDNEYS AND URETERS: Unremarkable. No hydronephrosis. No solid mass. VASCULATURE: Calcific atherosclerosis. No aortic aneurysm. BOWEL: Marked wall thickening extending from the distal ileum to the rectum with adjacent inflammatory change. Colonic diverticulosis. APPENDIX: Unremarkable. Normal appendix. PERITONEUM: Unremarkable. No free fluid. No free air. LYMPH NODES: Unremarkable. No enlarged lymph nodes. BLADDER: Unremarkable. REPRODUCTIVE: Prostatomegaly. BONES: No acute fracture. Multilevel spinal degenerative changes. L3 inferior endplate Schmorl node. L5-S1 severe disc space narrowing and endplate sclerotic changes. OTHER FINDINGS: None. IMPRESSION: Severe ileitis and hayes colitis, likely infectious/inflammatory in etiology. If there is history of previous recent antibiotic use, consider pseudomembranous colitis. Additional stable findings as above.
--- NOTE | 2018-05-16 18:44 | CP.PCM.PN ---
<Leilani Forrest P - Last Filed: 05/16/18 21:07> Subjective - Date & Time of Evaluation Date of Evaluation: 05/16/18 Time of Evaluation: 08:00 - Subjective Subjective: PGY-[address] Epstein. Patient seen and examined at bedside. Patient states he feels slightly better. Diarrhea is less in frequency. Denies difficulty urinating today. Denies fever, chills, nausea, vomiting, bloody stools, dysuria, hematuria, and abdominal pain. Objective - Vital Signs/Intake and Output Vital Signs (last 24 hours): Temp Pulse Resp BP Pulse Ox 97.4 F L 68 20 123/64 96 05/16/18 16:00 05/16/18 16:00 05/16/18 16:00 05/16/18 16:00 05/16/18 16:00 Intake and Output: 05/16/18 05/16/18 06:59 18:59 Intake Total 550 2050 Output Total 550 Balance 550 1500 - Medications Medications: Current Medications Heparin Sodium (Porcine) (Heparin) 5,000 units SC Q8 [facility] Last Admin: 05/16/18 06:13 Dose: 5,000 units Potassium Chloride/Dextrose/Sod Cl (Potassium Chl 20 Meq In D5-1/2ns) 1,000 mls @ 100 mls/hr IV .Q10H [facility] Last Admin: 05/16/18 15:21 Dose: Not Given Metronidazole (Flagyl) 500 mg in 100 mls @ 100 mls/hr IVPB Q8H [facility]; Protocol Last Admin: 05/16/18 11:22 Dose: 100 mls/hr Piperacillin Sod/Tazobactam Sod (Zosyn 2.25 Gm Iv Premix) 2.25 gm in 50 mls @ 100 mls/hr IVPB Q8 [facility]; Protocol Last Admin: 05/16/18 13:58 Dose: 100 mls/hr Lactobacillus Acidophilus (Bacid Acidophilus) 1 cap PO BID [facility] Last Admin: 05/16/18 11:06 Dose: 1 cap Tamsulosin HCl (Flomax) 0.4 mg PO DAILY [facility] Last Admin: 05/16/18 11:23 Dose: 0.4 mg - Labs Labs: 05/16/18 05:43 05/16/18 05:43 - Head Exam Head Exam: ATRAUMATIC, NORMOCEPHALIC - Eye Exam Eye Exam: EOMI, PERRL - ENT Exam ENT Exam: Mucous Membranes Dry - Neck Exam Neck Exam: Full ROM - Respiratory Exam Respiratory Exam: Clear to Ausculation Bilateral. absent: Rales, Rhonchi, Wheezes - Cardiovascular Exam Cardiovascular Exam: REGULAR RHYTHM, +S1, +S2 - GI/Abdominal Exam GI & Abdominal Exam: Soft. absent: Guarding, Rigid, Tenderness, Rebound - Extremities Exam Extremities Exam: Full ROM. absent: Pedal Edema, Tenderness - Neurological Exam Neurological Exam: Alert, Awake, Oriented x3 - Psychiatric Exam Psychiatric exam: Normal Affect, Normal Mood - Skin Skin Exam: Dry, Normal Color, Warm Assessment and Plan - Assessment and Plan (Free Text) Plan: (1) Colitis On admission: Temp increased to 100.3, Bandemia noted 38, No leukocytosis. 05/15/18-CT abd/pelvis with diverticular findings noted in the sigmoid colon. Findings suspicious for diverticulitis. Patient denies having a previous flare- up 05/16/18-CT abd/pelvis PO contrast: Severe ileitis and hayes colitis, likely infectious/inflammatory in etiology (see full report). Will start Zosyn and Flagyl at this time Fluid rehydration -D5 1/2 NS with 20 meq Potassium NPO lactate: 1.1 Procalcitonin: 2.21 Blood cx: preliminary No growth 24 hours Stool cx: preliminary No growth Cdiff toxin negative Patient had colonoscopy August 2017- Refer to complete results in medical record. ID, Dr. Aldrich, consulted. Help appreciated Continue IV empiric abx. F/u culture reports. GI, Dr. Soares/Letha, consulted. Help appreciated. (2) TRACEY Cr: 3.3 Ur osm: 366, Ur Cr: 200.2, Ur Na: 20 FeNa: 0.3%: prerenal Nephro, Dr. Charlton, consulted, help appreciated. IVF Avoid nephrotoxic meds (3) CKD (chronic kidney disease) Fluids as noted above Monitor renal function Per Aeronautical Inspector (Dr. Charlton)- F/U Additional recommendations (4) Urinary retention Per nursing, patient had to be straight cath-ed on admission in order to receive UA. Patient denies signs of retention prior to this admission F/U bladder ultrasound and UC at this time 05/15/18- 106cc pre-void volume 05/16/18- Patient was able to void freely without use of straight cath/cabrera. Will continue bladder scans every shift. UA showed hyaline casts and amorphous sediments Monitor ins and outs (4) HTN (hypertension) Normotensive at this time. Will monitor and medically manage at this time (5) Enlarged prostate Chronic. Confirmed findings on CT imaging. Refer to full report. Patient follows up with Urologist, Dr. Ti Deshpande for management. Dr. Bhakti Deshpande is covering, will see patient. Continue Flomax 0.4 mg PO daily 05/16/18 PSA: 62.2 (6) Prophylactic measure DVT prophylaxis- Heparin 5,000 units Q8 [facility] Ambulates No indication for GI prophylaxis at this time <Gracie Epstein V - Last Filed: 05/17/18 16:05> Objective - Vital Signs/Intake and Output Vital Signs (last 24 hours): Temp Pulse Resp BP Pulse Ox 97.8 F 80 20 107/68 98 05/17/18 07:36 05/17/18 07:36 05/17/18 07:36 05/17/18 07:36 05/17/18 07:36 Intake and Output: 05/17/18 05/17/18 06:59 18:59 Intake Total 1200 1600 Output Total 425 Balance 1200 1175 - Medications Medications: Current Medications Heparin Sodium (Porcine) (Heparin) 5,000 units SC Q8 [facility] Last Admin: 05/17/18 14:06 Dose: 5,000 units Potassium Chloride/Dextrose/Sod Cl (Potassium Chl 20 Meq In D5-1/2ns) 1,000 mls @ 100 mls/hr IV .Q10H [facility] Last Admin: 05/17/18 14:04 Dose: 100 mls/hr Metronidazole (Flagyl) 500 mg in 100 mls @ 100 mls/hr IVPB Q8H [facility]; Protocol Last Admin: 05/17/18 09:58 Dose: 100 mls/hr Piperacillin Sod/Tazobactam Sod (Zosyn 2.25 Gm Iv Premix) 2.25 gm in 50 mls @ 100 mls/hr IVPB Q8 [facility]; Protocol Last Admin: 05/17/18 14:03 Dose: 100 mls/hr Lactobacillus Acidophilus (Bacid Acidophilus) 1 cap PO BID [facility] Last Admin: 05/17/18 09:06 Dose: 1 cap Tamsulosin HCl (Flomax) 0.4 mg PO DAILY [facility] Last Admin: 05/17/18 09:06 Dose: 0.4 mg - Labs Labs: 05/17/18 07:32 05/17/18 07:32 Attending/Attestation - Attestation I have personally seen and examined this patient.: Yes I have fully participated in the care of the patient.: Yes I have reviewed all pertinent clinical information, including history, physical exam and plan: Yes Notes (Text): This is a late computer entry for 05/16/2018. Please note EMR was down for quite some time Patient seen, examined and case discussed with medical office worker. Patient reports he is feeling better and reports that diarrhea is becoming less frequent. Patient reports he is able to urinate on his own. I did discuss with renal recommended for IV fluids we are awaiting lab work since not resulted this morning. Urology being covered by Dr. Emily Deshpande since Delicia Deshpande is on vacation, given the patient's PSA is quite elevated and noted history of BPH and urinary retention. We'll follow-up for further recommendations. We'll order CAT scan abdomen and pelvis with by mouth contrast no IV did check the belly to confirm diverticulitis. Infectious disease consultation given patient's predominant bandemia. (1) Diverticulitis Bandemia Assessment and Plan: * GI on board help appreciated * Factious disease on board help appreciated * Continue to monitor white count, bandemia, and temperature * CAT scan abdomen and pelvis without by mouth or IV contrast (05/15/18): Fluid filled mildly dilated small bowel loops and fluid in the colon likely related to nonspecific infectious/inflammatory enterocolitis. Sigmoid diverticulosis is apparent moderate circumferential mural thickening in the sigmoid colon is nonspecific could be related to underdistention however mild superimposed acute diverticulitis cannot be excluded. Severe enlargement of the prostaglandin mass effect on the [place] urinary bladder. Severe circumferential mural thickening of the ureteral narrowing bladder wall could be related to underdistention. * CAT scan abdomen and pelvis with by mouth contrast only 05/16/2018: Severe ileitis and hayes colitis likely infectious/inflammatory in etiology * Abdominal obstructive series (05/16/18) noted for unremarkable radiographs of the chest and abdomen and no evidence of mechanical bowel obstruction. * Zosyn 2.25 IV every 8 hours * Flagyl 500 g IV every 8 hours * Fluid rehydration -D5 1/2 NS with 20 meq Potassium * Monitor Diarrhea- Liquid diet. F/U stool studies. Will advance as tolerated. * Patient had colonoscopy August 2017- Refer to complete results in medical record. * Patient appears he seen by the Dr[facility] Navarrete/[facility]etha [facility] * Blood cultures from 05/15/2018: No growth * Stool culture from May 05: No Salmonella, Shigella, Campylobacter * Urine culture from May 15 pending: * Pending stool ova and parasites Status: Acute (2) Acute renal failure Assessment and Plan: * Nephrology on board help appreciated * Urology on board help appreciated * Etiology including dehydration secondary to diarrhea patient and is currently on home ARB and statin * Patient start on IV fluids * Order for bladder scan every shift * R2 urinary output * Nephrology and urology on board * PSAs elevated * Continue to monitor BUN/creatinine * Bladder scan from 05/15/2018: Thick-walled urinary bladder measuring up to 8 mm concerning for cystitis versus bladder outlet obstruction. No gross calculi identified. Prevoid bladder volume of 103 mL. Patient was unable to void. Heterogeneous and prominent prostate measuring up to 4.7 cm. Concern for possible cystitis Status: Chronic (3) Urinary retention Assessment and Plan: * Urology also on board * Per nursing, patient had to be straight cath-ed in order to receive UA. * Patient denies signs of retention prior to this admission * UA showed hyaline casts and amorphous sediments * Bladder scan from 05/15/2018: Thick-walled urinary bladder measuring up to 8 mm concerning for cystitis versus bladder outlet obstruction. No gross calculi identified. Prevoid bladder volume of 103 mL. Patient was unable to void. Heterogeneous and prominent prostate measuring up to 4.7 cm. Concern for possible cystitis * Monitor ins and outs * Continue Flomax * Elevated PSA Status: Acute (4) HTN (hypertension) Assessment and Plan: * Normotensive at this time. * Will monitor and medically manage at this time. * Hold ARB Status: Chronic (5) Enlarged prostate Assessment and Plan: * Chronic. Confirmed findings on CT imaging. Refer to full report. * Patient follows up with Urologist, Dr. Ti Deshpande for management he is currently on vacation being covered by Emily Deshpande * Continue Flomax 0.4 mg PO daily * Elevated PSA Status: Acute (6) Prophylactic measure Assessment and Plan: * DVT prophylaxis- Heparin 5,000 units Q8 [facility] * Ambulates * No indication for GI prophylaxis at this time * IV fluids * Bacid 1 tab by mouth twice a day Status: Acute Disposition: Follow-up with GI, urology. Monitor BUN/creatinine. Continue IV fluids. Continue IV antibiotic. Continue monitor frequency of diarrhea
--- NOTE | 2018-05-16 20:33 | CP.PCM.PN ---
Subjective - Date & Time of Evaluation Date of Evaluation: 05/16/18 Time of Evaluation: 09:50 - Subjective Subjective: pt is seen and examined, follow up consult is dictated #[id number] Objective - Vital Signs/Intake and Output Vital Signs (last 24 hours): Temp Pulse Resp BP Pulse Ox 97.4 F L 68 20 123/64 96 05/16/18 16:00 05/16/18 16:00 05/16/18 16:00 05/16/18 16:00 05/16/18 16:00 Intake and Output: 05/16/18 05/17/18 18:59 06:59 Intake Total 2050 Output Total 550 Balance 1500 - Medications Medications: Current Medications Heparin Sodium (Porcine) (Heparin) 5,000 units SC Q8 [facility] Last Admin: 05/16/18 06:13 Dose: 5,000 units Potassium Chloride/Dextrose/Sod Cl (Potassium Chl 20 Meq In D5-1/2ns) 1,000 mls @ 100 mls/hr IV .Q10H [facility] Last Admin: 05/16/18 15:21 Dose: Not Given Metronidazole (Flagyl) 500 mg in 100 mls @ 100 mls/hr IVPB Q8H [facility]; Protocol Last Admin: 05/16/18 18:45 Dose: 100 mls/hr Piperacillin Sod/Tazobactam Sod (Zosyn 2.25 Gm Iv Premix) 2.25 gm in 50 mls @ 100 mls/hr IVPB Q8 [facility]; Protocol Last Admin: 05/16/18 13:58 Dose: 100 mls/hr Lactobacillus Acidophilus (Bacid Acidophilus) 1 cap PO BID [facility] Last Admin: 05/16/18 18:45 Dose: 1 cap Tamsulosin HCl (Flomax) 0.4 mg PO DAILY [facility] Last Admin: 05/16/18 11:23 Dose: 0.4 mg - Labs Labs: 05/16/18 05:43 05/16/18 05:43
[2018-05-17] MEDS: Potassium Ch 20mEq in D5-1/2NS 1,000 ML IV SCH ×5 (00:30→22:05)
[2018-05-17] MEDS: metroNIDAZOLE IV 500 mg/100 ml 500 MG/100 ML BAG IVPB SCH ×3 (01:48→18:42)
[2018-05-17] MEDS: Piperacill/Tazo 2.25gm in Dex 2.25 GM/50 ML BAG IVPB SCH ×3 (05:19→22:05)
--- NOTE | 2018-05-17 06:05 | PN ---
DATE: 05/16/2018 FOLLOWUP RENAL CONSULTATION LOCATION: The patient is located in room 353, bed A. REQUESTED BY: Gracie Epstein DO REASON FOR FOLLOWUP: Acute renal failure and for further evaluation. HISTORY OF PRESENT ILLNESS: Mr. Cordova is a 68-year-old elderly male with a history of longstanding hypertension, hyperlipidemia, BPH, diverticulosis, and mild CKD who was admitted yesterday that is 05/15/2018 through the ER with a chief complaint of diarrhea for about two days prior to the admission, started on Tuesday sometime in the afternoon, the patient does not remember exactly and decided to come to the ER yesterday with weakness and after advised, the patient did go to the ER from the urgent care facility. The patient is not in acute distress. Denies any headache or dizziness. Denies any chest pain or palpitation. The patient claims he started voiding, not in distress. No chest pain. No palpitation. No fever. No cough. PHYSICAL EXAMINATION: VITAL SIGNS: As follows: Blood pressure this morning 111/71, pulse 95, respirations 15, temperature 98.1, saturation 97%. Height 5 feet 4 inches. Weight is 122 pounds. T-max is 100.3. GENERAL: Mr. Cordova is a 68-year-old elderly male, moderately built, moderately nourished, not in distress. HEENT: Pupils normal and reactive to light and accommodation. Conjunctivae pink. Sclerae anicteric. Tongue is moist. Trachea is midline. LUNGS: Symmetric on both sides. Bilateral breath sounds present. Clear to auscultation. CARDIOVASCULAR SYSTEM: [place] at the fifth intercostal space, midclavicular line. S1, S2 audible. No murmur or gallop. ABDOMEN: Normal in appearance, soft, tympanitic. No guarding. No rigidity. No hepatosplenomegaly. CENTRAL NERVOUS SYSTEM: The patient is alert, awake, oriented x3. Nonfocal neuro examination. Cranial nerves II through XII grossly intact. Sensory and motor system is within normal limits. EXTREMITIES: No cyanosis, no clubbing, no edema. MEDICATIONS: His current medications include as follows: Pepcid one tablet p.o. b.i.d., Flagyl 500 mg p.o. every 8 hours, Flomax 0.4 mg daily, IV fluid D5 half-normal saline with 20 mEq KCl, and Zosyn 2.25 g IV every 8 hours. LABORATORY DATA: Include as of 05/16/2018: WBC 9, hemoglobin 13.5, hematocrit 38.4, platelets 305, neutrophils 47, bands 41, lymphs 4, monocytes 4, and eosinophils 4. VBG as of 05/15/2018, pH of 7.36, pO2 of 69, and pCO2 of 29, bicarb is 18, saturation 94.8. Other laboratory data: Sodium 128, potassium 4.2, chloride 95, CO2 of 20, BUN 49, creatinine 3.3, glucose 126, calcium 8.4, phosphorus 3.4, and magnesium 1.9. Total bili 0.7, AST 27, ALT 32, alkaline phosphatase 44, total protein 6.6, albumin is 3.9. PSA is 62.2. Procalcitonin is 2.21. Urinalysis again, ian, hazy, pH of 5, specific gravity 1.015, glucose normal, protein negative, ketones negative, blood negative, nitrite negative, bilirubin negative, and leukocytosis negative, wbc's 8, rbc's 2, urine osmolality 366, urine creatinine 200, urine sodium is 20. Stool for C. difficile tox is negative. OTHER LABORATORY DATA: Blood culture x2 negative, day 1. Stool culture, no growth. Urine culture, no growth. Other reports are CT of the abdomen and pelvis as of 05/16/2018, impression: Severe ileitis and pancolitis, likely infectious or inflammatory in etiology. If there is a history of previous recent antibiotic use, consider pseudomembranous colitis. Ultrasound of the bladder as of 05/15/2018: The patient unable to void with post residual of 104 mL. This would be concerning for possible bladder outlet obstruction, heterogeneous and prominent prostate. Right ureteral jet was not well visualized. ASSESSMENT AND PLAN: In summary, Mr. Cordova is a 68-year-old elderly male with a history of hypertension, hyperlipidemia, chronic kidney disease, enlarged prostate who was admitted with diarrhea for two days prior to the admission with no abdominal pain with T-max of 100.3. 1. Acute renal failure, most likely secondary to acute tubular necrosis secondary to sepsis. 2. Diarrhea secondary to severe colitis, rule out infectious etiology. 3. High prostate-specific antigen with enlarged prostate, rule out prostate cancer. 4. Partial obstruction of the bladder. PLAN: Continue IV fluids. Continue to monitor I and Os and IV antibiotics. Consider ID consult if not done. antibiotics as per ID recommendations. Daily BMP. We will follow with you. Thank you for allowing me to participate in your patient's care. Case discussed with Dr. Gracie Epstein in the rounds this morning. Kyle Charlton MD
[2018-05-17 07:41] LABS: BASO % 0.5 % (0.0-2.0); EOS # 0.4 K/uL (0.0-0.7); HEMOGLOBIN 12.1 g/dL (12.0-18.0); LYMPH # 0.7 K/uL (1.0-4.3); LYMPH % 7.7 % (20.0-40.0); MEAN CELL VOLUME 98.3 fL (80.0-94.0); MEAN CORPUSCULAR HEMOGLOBIN 33.9 pg (27.0-31.0); MEAN CORPUSCULAR HGB CONC 34.5 g/dL (33.0-37.0); MEAN PLATELET VOLUME 7.2 fL (7.2-11.7); MONO # 1.2 K/uL (0.0-0.8); MONO % 13.8 % (0.0-10.0); NEUT # 6.7 K/uL (1.8-7.0); PLATELET COUNT 328 K/uL (130-400); RBC 3.56 Mil/uL (4.40-5.90); RED CELL DISTRIBUTION WIDTH 13.5 % (11.5-14.5)
[2018-05-17 07:58] LABS: ALB/GLOB RATIO 1.1 (1.0-2.1); ALBUMIN 3.2 g/dL (3.5-5.0); CALCIUM 8.3 mg/dl (8.6-10.4)
[2018-05-17] MEDS: Lactobacillus Acidophilus 500 MU Cap PO SCH ×2 (09:06→18:42)
[2018-05-17 09:35] LABS: ANISOCYTOSIS SLIGHT; BANDS 19 % (0-2); EOSINOPHIL 5 % (0-4); HYPOCHROMIC SLIGHT; LYMPHOCYTE 12 % (20-40); MONOCYTE 14 % (0-10); NEUTROPHIL 48 % (50-75); PLATELET ESTIMATE NORMAL (NORMAL); POIKILOCYTOSIS SLIGHT; REACTIVE LYMPHOCYTES 2 % (0-0); TARGET CELLS SLIGHT; TOTAL CELLS COUNTED 100
--- NOTE | 2018-05-17 10:03 | CP.PCM.PN ---
Subjective - Date & Time of Evaluation Date of Evaluation: 05/17/18 Time of Evaluation: 10:03 - Subjective Subjective: pt is seen and examined, follow up consult is dictated #[id number] Objective - Vital Signs/Intake and Output Vital Signs (last 24 hours): Temp Pulse Resp BP Pulse Ox 97.8 F 80 20 107/68 98 05/17/18 07:36 05/17/18 07:36 05/17/18 07:36 05/17/18 07:36 05/17/18 07:36 Intake and Output: 05/17/18 05/17/18 06:59 18:59 Intake Total 1200 800 Balance 1200 800 - Medications Medications: Current Medications Heparin Sodium (Porcine) (Heparin) 5,000 units SC Q8 [facility] Last Admin: 05/17/18 05:47 Dose: 5,000 units Potassium Chloride/Dextrose/Sod Cl (Potassium Chl 20 Meq In D5-1/2ns) 1,000 mls @ 100 mls/hr IV .Q10H [facility] Last Admin: 05/17/18 01:49 Dose: 100 mls/hr Metronidazole (Flagyl) 500 mg in 100 mls @ 100 mls/hr IVPB Q8H [facility]; Protocol Last Admin: 05/17/18 09:58 Dose: 100 mls/hr Piperacillin Sod/Tazobactam Sod (Zosyn 2.25 Gm Iv Premix) 2.25 gm in 50 mls @ 100 mls/hr IVPB Q8 [facility]; Protocol Last Admin: 05/17/18 05:19 Dose: 100 mls/hr Lactobacillus Acidophilus (Bacid Acidophilus) 1 cap PO BID [facility] Last Admin: 05/17/18 09:06 Dose: 1 cap Tamsulosin HCl (Flomax) 0.4 mg PO DAILY [facility] Last Admin: 05/17/18 09:06 Dose: 0.4 mg - Labs Labs: 05/17/18 07:32 05/17/18 07:32
--- NOTE | 2018-05-17 12:30 | CP.PCM.PN ---
Subjective - Date & Time of Evaluation Date of Evaluation: 05/17/18 Time of Evaluation: 08:00 - Subjective Subjective: improving Objective - Vital Signs/Intake and Output Vital Signs (last 24 hours): Temp Pulse Resp BP Pulse Ox 97.8 F 80 20 107/68 98 05/17/18 07:36 05/17/18 07:36 05/17/18 07:36 05/17/18 07:36 05/17/18 07:36 Intake and Output: 05/17/18 05/17/18 06:59 18:59 Intake Total 1200 800 Balance 1200 800 - Medications Medications: Current Medications Heparin Sodium (Porcine) (Heparin) 5,000 units SC Q8 [facility] Last Admin: 05/17/18 05:47 Dose: 5,000 units Potassium Chloride/Dextrose/Sod Cl (Potassium Chl 20 Meq In D5-1/2ns) 1,000 mls @ 100 mls/hr IV .Q10H [facility] Last Admin: 05/17/18 01:49 Dose: 100 mls/hr Metronidazole (Flagyl) 500 mg in 100 mls @ 100 mls/hr IVPB Q8H [facility]; Protocol Last Admin: 05/17/18 09:58 Dose: 100 mls/hr Piperacillin Sod/Tazobactam Sod (Zosyn 2.25 Gm Iv Premix) 2.25 gm in 50 mls @ 100 mls/hr IVPB Q8 [facility]; Protocol Last Admin: 05/17/18 05:19 Dose: 100 mls/hr Lactobacillus Acidophilus (Bacid Acidophilus) 1 cap PO BID [facility] Last Admin: 05/17/18 09:06 Dose: 1 cap Tamsulosin HCl (Flomax) 0.4 mg PO DAILY [facility] Last Admin: 05/17/18 09:06 Dose: 0.4 mg - Labs Labs: 05/17/18 07:32 05/17/18 07:32 Assessment and Plan (1) Acute kidney injury Status: Acute (2) Diarrhea Status: Acute (3) Diverticulitis Status: Acute (4) Enlarged prostate Status: Acute (5) CKD (chronic kidney disease) Status: Chronic (6) HTN (hypertension) Status: Chronic
--- NOTE | 2018-05-17 13:58 | CP.PCM.CON ---
History of Present Illness - History of Present Illness History of Present Illness: CC: diarrhea HPI: 68 year old man presented with watery diarrhea nad dehydration starting 5 days ago after eating peruvian toast. he denies fevers, chills, blood instool. CT showed significant pancolitis and ileitis, likely infectuious origin, and colonic diverticulosis. Patient with acute renal failure, likely dehydration. Has been on Zosyn and Flagyl by ID and is having less diarrhea and feels stronger. Stool cultures and CDiff toxin are negative. Last colonoscopy was in August 2017 and 2 polyps were removed, also had diverticulosis. Patient is well known to Dr Monae. Review of Systems - Constitutional Constitutional: As Per HPI, Weight Loss, Weakness - EENT Eyes: absent: Change in Vision - Cardiovascular Cardiovascular: absent: Chest Pain - Respiratory Respiratory: absent: Cough, Dyspnea - Gastrointestinal Gastrointestinal: Diarrhea, Loose Stools. absent: Abdominal Pain, Hematochezia, Melena, Nausea, Vomiting - Genitourinary Genitourinary: absent: Change in Urinary Stream - Musculoskeletal Musculoskeletal: absent: Back Pain - Integumentary Integumentary: absent: Jaundice - Neurological Neurological: Weakness. absent: Confusion - Psychiatric Psychiatric: absent: Behavioral Changes Past Patient History - Infectious Disease Hx of Infectious Diseases: None - Past Medical History & Family History Past Medical History?: Yes - Past Social History Smoking Status: Former Smoker - CARDIAC Hx Cardiac Disorders: Yes Hx Hypercholesterolemia: Yes Hx Hypertension: Yes - PULMONARY Hx Respiratory Disorders: No - NEUROLOGICAL Hx Neurological Disorder: No - HEENT Hx HEENT Problems: No - RENAL Hx Chronic Kidney Disease: No - ENDOCRINE/METABOLIC Hx Endocrine Disorders: No - HEMATOLOGICAL/ONCOLOGICAL Hx Blood Disorders: No - INTEGUMENTARY Hx Dermatological Problems: No - MUSCULOSKELETAL/RHEUMATOLOGICAL Hx Falls: No - GASTROINTESTINAL Hx Gastrointestinal Disorders: No Hx Hemorrhoids: Yes - GENITOURINARY/GYNECOLOGICAL Hx Genitourinary Disorders: No - PSYCHIATRIC Hx Substance Use: No - SURGICAL HISTORY Hx Surgeries: Yes Hx Herniorrhaphy: Yes - ANESTHESIA Hx Anesthesia: Yes Hx Anesthesia Reactions: No Hx Malignant Hyperthermia: No Has any member of the family had a problem w/ anesthesia?: No Meds Allergies/Adverse Reactions: Allergies Allergy/AdvReac Type Severity Reaction Status Date / Time No Known Allergies Allergy Verified 02/19/18 16:08 - Medications Medications: Current Medications Heparin Sodium (Porcine) (Heparin) 5,000 units SC Q8 [facility] Last Admin: 05/17/18 05:47 Dose: 5,000 units Potassium Chloride/Dextrose/Sod Cl (Potassium Chl 20 Meq In D5-1/2ns) 1,000 mls @ 100 mls/hr IV .Q10H [facility] Last Admin: 05/17/18 10:30 Dose: Not Given Metronidazole (Flagyl) 500 mg in 100 mls @ 100 mls/hr IVPB Q8H [facility]; Protocol Last Admin: 05/17/18 09:58 Dose: 100 mls/hr Piperacillin Sod/Tazobactam Sod (Zosyn 2.25 Gm Iv Premix) 2.25 gm in 50 mls @ 100 mls/hr IVPB Q8 [facility]; Protocol Last Admin: 05/17/18 05:19 Dose: 100 mls/hr Lactobacillus Acidophilus (Bacid Acidophilus) 1 cap PO BID [facility] Last Admin: 05/17/18 09:06 Dose: 1 cap Tamsulosin HCl (Flomax) 0.4 mg PO DAILY [facility] Last Admin: 05/17/18 09:06 Dose: 0.4 mg Physical Exam - Constitutional Appears: Well, No Acute Distress - Head Exam Head Exam: ATRAUMATIC, NORMOCEPHALIC - Eye Exam Eye Exam: absent: Scleral icterus - ENT Exam ENT Exam: Mucous Membranes Moist - Neck Exam Neck exam: Positive for: Normal Inspection - Respiratory Exam Respiratory Exam: Clear to Auscultation Bilateral - Cardiovascular Exam Cardiovascular Exam: REGULAR RHYTHM - GI/Abdominal Exam GI & Abdominal Exam: Normal Bowel Sounds, Soft. absent: Distended, Mass, Rebound, Tenderness - Rectal Exam Rectal Exam: Deferred - Extremities Exam Extremities exam: Positive for: normal inspection - Back Exam Back exam: NORMAL INSPECTION - Neurological Exam Neurological exam: Alert, Oriented x3 - Psychiatric Exam Psychiatric exam: Normal Affect, Normal Mood - Skin Skin Exam: Normal Color Results - Vital Signs Recent Vital Signs: Last Vital Signs Temp 97.8 F 05/17/18 07:36 Pulse 80 05/17/18 07:36 Resp 20 05/17/18 07:36 BP 107/68 05/17/18 07:36 Pulse Ox 98 05/17/18 07:36 - Labs Result Diagrams: 05/17/18 07:32 05/17/18 07:32 Labs: Laboratory Results - last 24 hr 05/17/18 05/17/18 05/17/18 07:32 07:32 07:32 WBC 9.0 RBC 3.56 L Hgb 12.1 Hct 35.0 MCV 98.3 H MCH 33.9 H MCHC 34.5 RDW 13.5 Plt Count 328 MPV 7.2 Neut % (Auto) 74.0 Lymph % (Auto) 7.7 L [place] % (Auto) 13.8 H Eos % (Auto) 4.0 Baso % (Auto) 0.5 Neut # (Auto) 6.7 Lymph # (Auto) 0.7 L [place] # (Auto) 1.2 H Eos # (Auto) 0.4 Baso # (Auto) 0.0 Neutrophils % (Manual) 48 L Band Neutrophils % 19 H* Lymphocytes % (Manual) 12 L Reactive Lymphs % 2 H Monocytes % (Manual) 14 H Eosinophils % (Manual) 5 H Platelet Estimate Normal Hypochromasia (manual) Slight Poikilocytosis (manual Slight Anisocytosis (manual) Slight Target Cells Slight Sodium 133 Potassium 4.5 Chloride 98 Carbon Dioxide 22 Anion Gap 17 BUN 39 H Creatinine 2.1 H Est GFR ( Amer) 38 Est GFR (Non-Af Amer) 32 Random Glucose 135 H Serum Osmolality 279 Calcium 8.3 L Total Bilirubin 0.5 AST 31 ALT 41 Alkaline Phosphatase 46 Total Protein 6.0 L Albumin 3.2 L Globulin 2.8 Albumin/Globulin Ratio 1.1 Assessment & Plan (1) Diarrhea Assessment and Plan: acute enterocolitis, likely infectious, clinically improving. Source of infection not identified Although has colonic diverticulosis, there is no Diverticulitis Rec: conservative treatment, IV hydration. Probably does not need antibiotics- will defer antibiotic management to ID workforce consultant. Colonoscopy is not planned unless diarrhea persists. Status: Acute
--- NOTE | 2018-05-17 16:11 | CP.PCM.CON ---
Past Patient History - Infectious Disease Hx of Infectious Diseases: None - Past Medical History & Family History Past Medical History?: Yes - Past Social History Smoking Status: Former Smoker - CARDIAC Hx Cardiac Disorders: Yes Hx Hypercholesterolemia: Yes Hx Hypertension: Yes - PULMONARY Hx Respiratory Disorders: No - NEUROLOGICAL Hx Neurological Disorder: No - HEENT Hx HEENT Problems: No - RENAL Hx Chronic Kidney Disease: No - ENDOCRINE/METABOLIC Hx Endocrine Disorders: No - HEMATOLOGICAL/ONCOLOGICAL Hx Blood Disorders: No - INTEGUMENTARY Hx Dermatological Problems: No - MUSCULOSKELETAL/RHEUMATOLOGICAL Hx Falls: No - GASTROINTESTINAL Hx Gastrointestinal Disorders: No Hx Hemorrhoids: Yes - GENITOURINARY/GYNECOLOGICAL Hx Genitourinary Disorders: No - PSYCHIATRIC Hx Substance Use: No - SURGICAL HISTORY Hx Surgeries: Yes Hx Herniorrhaphy: Yes - ANESTHESIA Hx Anesthesia: Yes Hx Anesthesia Reactions: No Hx Malignant Hyperthermia: No Has any member of the family had a problem w/ anesthesia?: No Meds Allergies/Adverse Reactions: Allergies Allergy/AdvReac Type Severity Reaction Status Date / Time No Known Allergies Allergy Verified 02/19/18 16:08 - Medications Medications: Current Medications Heparin Sodium (Porcine) (Heparin) 5,000 units SC Q8 [facility] Last Admin: 05/17/18 14:06 Dose: 5,000 units Potassium Chloride/Dextrose/Sod Cl (Potassium Chl 20 Meq In D5-1/2ns) 1,000 mls @ 100 mls/hr IV .Q10H [facility] Last Admin: 05/17/18 14:04 Dose: 100 mls/hr Metronidazole (Flagyl) 500 mg in 100 mls @ 100 mls/hr IVPB Q8H [facility]; Protocol Last Admin: 05/17/18 09:58 Dose: 100 mls/hr Piperacillin Sod/Tazobactam Sod (Zosyn 2.25 Gm Iv Premix) 2.25 gm in 50 mls @ 100 mls/hr IVPB Q8 [facility]; Protocol Last Admin: 05/17/18 14:03 Dose: 100 mls/hr Lactobacillus Acidophilus (Bacid Acidophilus) 1 cap PO BID [facility] Last Admin: 05/17/18 09:06 Dose: 1 cap Tamsulosin HCl (Flomax) 0.4 mg PO DAILY [facility] Last Admin: 05/17/18 09:06 Dose: 0.4 mg Results - Vital Signs Recent Vital Signs: Last Vital Signs Temp 97.8 F 05/17/18 07:36 Pulse 80 05/17/18 07:36 Resp 20 05/17/18 07:36 BP 107/68 05/17/18 07:36 Pulse Ox 98 05/17/18 07:36 - Labs Result Diagrams: 05/17/18 07:32 05/17/18 07:32 Labs: Laboratory Results - last 24 hr 05/17/18 05/17/18 05/17/18 07:32 07:32 07:32 WBC 9.0 RBC 3.56 L Hgb 12.1 Hct 35.0 MCV 98.3 H MCH 33.9 H MCHC 34.5 RDW 13.5 Plt Count 328 MPV 7.2 Neut % (Auto) 74.0 Lymph % (Auto) 7.7 L [place] % (Auto) 13.8 H Eos % (Auto) 4.0 Baso % (Auto) 0.5 Neut # (Auto) 6.7 Lymph # (Auto) 0.7 L [place] # (Auto) 1.2 H Eos # (Auto) 0.4 Baso # (Auto) 0.0 Neutrophils % (Manual) 48 L Band Neutrophils % 19 H* Lymphocytes % (Manual) 12 L Reactive Lymphs % 2 H Monocytes % (Manual) 14 H Eosinophils % (Manual) 5 H Platelet Estimate Normal Hypochromasia (manual) Slight Poikilocytosis (manual Slight Anisocytosis (manual) Slight Target Cells Slight Sodium 133 Potassium 4.5 Chloride 98 Carbon Dioxide 22 Anion Gap 17 BUN 39 H Creatinine 2.1 H Est GFR ( Amer) 38 Est GFR (Non-Af Amer) 32 Random Glucose 135 H Serum Osmolality 279 Calcium 8.3 L Total Bilirubin 0.5 AST 31 ALT 41 Alkaline Phosphatase 46 Total Protein 6.0 L Albumin 3.2 L Globulin 2.8 Albumin/Globulin Ratio 1.1 Assessment & Plan - Assessment and Plan (Free Text) Assessment: IMP: HX OF BPH IMPROVED BLADDER EMPTYING COLITIS/ DIVERTICULISITS ELEVATED PSA FULL NOTE TBD ys - Date & Time Date: 05/17/18 Time: 16:11
--- NOTE | 2018-05-17 16:18 | CP.PCM.PN ---
Subjective - Date & Time of Evaluation Date of Evaluation: 05/17/18 Time of Evaluation: 06:00 - Subjective Subjective: feels better no more diarrhea still has bandemia On admission had Procalcitonin of 2 Objective - Vital Signs/Intake and Output Vital Signs (last 24 hours): Temp Pulse Resp BP Pulse Ox 97.8 F 80 20 107/68 98 05/17/18 07:36 05/17/18 07:36 05/17/18 07:36 05/17/18 07:36 05/17/18 07:36 Intake and Output: 05/17/18 05/17/18 06:59 18:59 Intake Total 1200 1600 Output Total 425 Balance 1200 1175 - Medications Medications: Current Medications Heparin Sodium (Porcine) (Heparin) 5,000 units SC Q8 [facility] Last Admin: 05/17/18 14:06 Dose: 5,000 units Potassium Chloride/Dextrose/Sod Cl (Potassium Chl 20 Meq In D5-1/2ns) 1,000 mls @ 100 mls/hr IV .Q10H [facility] Last Admin: 05/17/18 14:04 Dose: 100 mls/hr Metronidazole (Flagyl) 500 mg in 100 mls @ 100 mls/hr IVPB Q8H [facility]; Protocol Last Admin: 05/17/18 09:58 Dose: 100 mls/hr Piperacillin Sod/Tazobactam Sod (Zosyn 2.25 Gm Iv Premix) 2.25 gm in 50 mls @ 100 mls/hr IVPB Q8 [facility]; Protocol Last Admin: 05/17/18 14:03 Dose: 100 mls/hr Lactobacillus Acidophilus (Bacid Acidophilus) 1 cap PO BID [facility] Last Admin: 05/17/18 09:06 Dose: 1 cap Tamsulosin HCl (Flomax) 0.4 mg PO DAILY [facility] Last Admin: 05/17/18 09:06 Dose: 0.4 mg - Labs Labs: 05/17/18 07:32 05/17/18 07:32 - Constitutional Appears: Non-toxic, Chronically Ill - Head Exam Head Exam: NORMOCEPHALIC - Eye Exam Eye Exam: PERRL. absent: Scleral icterus - ENT Exam ENT Exam: Mucous Membranes Dry - Neck Exam Neck Exam: absent: Lymphadenopathy - Respiratory Exam Respiratory Exam: Decreased Breath Sounds, Clear to Ausculation Bilateral - Cardiovascular Exam Cardiovascular Exam: REGULAR RHYTHM, +S1, +S2 - GI/Abdominal Exam GI & Abdominal Exam: Distended, Soft. absent: Tenderness - Rectal Exam Rectal Exam: Deferred - Exam Exam: NORMAL INSPECTION - Extremities Exam Extremities Exam: absent: Pedal Edema - Back Exam Back Exam: absent: CVA tenderness (L), CVA tenderness (R) - Neurological Exam Neurological Exam: Alert, Awake, Oriented x3 - Psychiatric Exam Psychiatric exam: Normal Mood - Skin Skin Exam: Dry Assessment and Plan (1) Acute kidney injury Status: Acute (2) Diarrhea Status: Acute (3) Diverticulitis Status: Acute (4) Enlarged prostate Status: Acute (5) CKD (chronic kidney disease) Status: Chronic (6) HTN (hypertension) Status: Chronic - Assessment and Plan (Free Text) Assessment: no more diarrhea and TRACEY improving CT shows severe pancolitis/ ileitis still has bandemia urine cultures were neg and no prostatic abscess described on CT scan pelvis - will need follow up On admission had Procalcitonin of 2 on day 3 of antibiotics with negative cultures- CT shows severe pancolitis/ ileitis would consider completing 7 day course of Rx for pancolitis/ ileitis as described on CT scaan ( possible transition to PO ) will repeat procalcitonin
--- NOTE | 2018-05-17 19:56 | CP.PCM.PN ---
<Shawn Agudelo - Last Filed: 05/17/18 21:13> Subjective - Date & Time of Evaluation Date of Evaluation: 05/17/18 Time of Evaluation: 09:30 - Subjective Subjective: Progress Note for Hospitalist Service Pt seen and examined at bedside this am. Observed resting comfortably, denies any acute complaints. Pt NPO, states he has an appetite this am and wants to try to restart PO diet. Denied fever, chills, headache, chest pain, shortness of breath, n/v/c, urinary complaints, or other symptoms. Pt states his diarrhea episodes are less frequent and he has had to go to the bathroom less often. No acute events reported overnight. Objective - Vital Signs/Intake and Output Vital Signs (last 24 hours): Temp Pulse Resp BP Pulse Ox 97.8 F 87 20 104/64 98 05/17/18 16:00 05/17/18 16:00 05/17/18 16:00 05/17/18 16:00 05/17/18 16:00 Intake and Output: 05/17/18 05/18/18 18:59 06:59 Intake Total 1600 Output Total 425 Balance 1175 - Medications Medications: Current Medications Heparin Sodium (Porcine) (Heparin) 5,000 units SC Q8 [facility] Last Admin: 05/17/18 14:06 Dose: 5,000 units Potassium Chloride/Dextrose/Sod Cl (Potassium Chl 20 Meq In D5-1/2ns) 1,000 mls @ 100 mls/hr IV .Q10H [facility] Last Admin: 05/17/18 14:04 Dose: 100 mls/hr Metronidazole (Flagyl) 500 mg in 100 mls @ 100 mls/hr IVPB Q8H [facility]; Protocol Last Admin: 05/17/18 18:42 Dose: 100 mls/hr Piperacillin Sod/Tazobactam Sod (Zosyn 2.25 Gm Iv Premix) 2.25 gm in 50 mls @ 100 mls/hr IVPB Q8 [facility]; Protocol Last Admin: 05/17/18 14:03 Dose: 100 mls/hr Lactobacillus Acidophilus (Bacid Acidophilus) 1 cap PO BID [facility] Last Admin: 05/17/18 18:42 Dose: 1 cap Tamsulosin HCl (Flomax) 0.4 mg PO DAILY [facility] Last Admin: 05/17/18 09:06 Dose: 0.4 mg - Labs Labs: 05/17/18 07:32 05/17/18 07:32 - Constitutional Appears: Non-toxic, No Acute Distress - Head Exam Head Exam: ATRAUMATIC, NORMOCEPHALIC - Eye Exam Eye Exam: EOMI, Normal appearance, PERRL - ENT Exam ENT Exam: Mucous Membranes Moist - Neck Exam Neck Exam: Full ROM, Normal Inspection - Respiratory Exam Respiratory Exam: Clear to Ausculation Bilateral, NORMAL BREATHING PATTERN. absent: Rales, Rhonchi, Wheezes - Cardiovascular Exam Cardiovascular Exam: REGULAR RHYTHM, +S1, +S2. absent: Gallop, Rubs, Murmur - GI/Abdominal Exam GI & Abdominal Exam: Distended, Soft, Normal Bowel Sounds. absent: Firm, Guarding, Rigid, Tenderness, Organomegaly, Rebound - Extremities Exam Extremities Exam: Full ROM, Normal Capillary Refill, Normal Inspection - Neurological Exam Neurological Exam: Alert, Awake, CN II-XII Intact, Oriented x3 - Psychiatric Exam Psychiatric exam: Normal Affect, Normal Mood - Skin Skin Exam: Dry, Intact, Normal Color, Warm Assessment and Plan - Assessment and Plan (Free Text) Assessment: 68 M PMhx HTN, CKD, HLD, BPH, diverticulosis noted on recent colonoscopy (without prior complaints or previous flare-ups) who presented with watery diarrhea, being treated for diverticulitis/colitis. Urinary retention and TRACEY noted on admission with BPH. Nephrology, GI, ID, and Urology consulted. Plan: Colitis vs. Diverticulitis On admission: Temp increased to 100.3, Bandemia noted 38, No leukocytosis. 05/15/18-CT abd/pelvis with diverticular findings noted in the sigmoid colon. Findings suspicious for diverticulitis. Patient denies having a previous flare- up 05/16/18-CT abd/pelvis PO contrast: Severe ileitis and hayes colitis, likely infect ious/inflammatory in etiology (see full report). C/w Zosyn and Flagyl at this time; complete 7 day course of anbx as per ID, f/u re transfer to PO meds Fluid rehydration -D5 1/2 NS with 20 meq Potassium Will start clear diet, advance as tolerated lactate: 1.1 Procalcitonin: 2.21 Blood cx: preliminary No growth 24 hours Stool cx: preliminary No growth Cdiff toxin negative Patient had colonoscopy August 2017- Refer to complete results in medical record. ID, Dr. Aldrich, consulted. Help appreciated Continue IV empiric abx. F/u culture reports. GI, Dr. Soares/Letha, consulted. Help appreciated. TRACEY Cr: 3.3 Ur osm: 366, Ur Cr: 200.2, Ur Na: 20 FeNa: 0.3%: prerenal Nephro, Dr. Charlton, consulted, help appreciated. IVF Avoid nephrotoxic meds CKD Fluids as noted above Monitor renal function Per Director Of Distribution (Dr. Charlton)- F/U Additional recommendaions Urinary retention Per nursing, patient had to be straight cath-ed on admission in order to receive UA. Patient denies signs of retention prior to this admission Bladder U/s 05/15: thick walled urinary bladder concerning for possible cystitis vs. bladder outlet obstruction, unable to void w/ post-void residual of 104 cc, heterogenous and prominent prostate, R ureteral jet not well visualized Urine cx: gram-pos cocci F/U bladder ultrasound and UC at this time 05/15/18- 106cc pre-void volume 05/16/18- Patient was able to void freely without use of straight cath/cabrera. Will continue bladder scans every shift. UA showed hyaline casts and amorphous sediments Monitor ins and outs HTN Normotensive at this time. Will monitor and medically manage at this time Enlarged prostate Chronic. Confirmed findings on CT imaging. Refer to full report. Patient follows up with Urologist, Dr. Ti Deshpande for management. Urology consulted, recs appreciated Continue Flomax 0.4 mg PO daily 05/16/18 PSA: 62.2 Prophylactic measure DVT prophylaxis- Heparin 5,000 units Q8 [facility] No indication for GI prophylaxis at this time Pt seen, examined with, and plan discussed with Dr. Cheng, attending. Shawn Agudelo DO PGY-1, [employer] [facility] Pager #[phone] <Andi Cheng - Last Filed: 05/20/18 17:33> Attending/Attestation - Attestation I have personally seen and examined this patient.: Yes I have fully participated in the care of the patient.: Yes I have reviewed all pertinent clinical information, including history, physical exam and plan: Yes Notes (Text): Colitis / Diverticulitis TRACEY on CKD
[2018-05-17 22:59] LABS: TOTAL PSA 93.6 ng/mL (< or = 4.0)
[2018-05-18] MEDS: metroNIDAZOLE IV 500 mg/100 ml 500 MG/100 ML BAG IVPB SCH ×3 (02:05→18:55)
[2018-05-18] MEDS: Piperacill/Tazo 2.25gm in Dex 2.25 GM/50 ML BAG IVPB SCH ×3 (05:05→22:18)
[2018-05-18] MEDS: Potassium Ch 20mEq in D5-1/2NS 1,000 ML IV SCH ×3 (05:16→16:59)
[2018-05-18 07:37] LABS: BASO # 0.1 K/uL (0.0-0.2); BASO % 1.1 % (0.0-2.0); EOS # 0.4 K/uL (0.0-0.7); EOS % 6.1 % (0.0-4.0); HEMOGLOBIN 12.1 g/dL (12.0-18.0); LYMPH % 14.5 % (20.0-40.0); MEAN CELL VOLUME 98.2 fL (80.0-94.0); MEAN CORPUSCULAR HEMOGLOBIN 34.8 pg (27.0-31.0); MEAN CORPUSCULAR HGB CONC 35.5 g/dL (33.0-37.0); MONO # 0.9 K/uL (0.0-0.8); MONO % 12.9 % (0.0-10.0); NEUT # 4.7 K/uL (1.8-7.0); NEUT % 65.4 % (50.0-75.0); RBC 3.46 Mil/uL (4.40-5.90); RED CELL DISTRIBUTION WIDTH 13.7 % (11.5-14.5); WHITE BLOOD COUNT 7.1 K/uL (4.8-10.8)
[2018-05-18 07:48] LABS: ALB/GLOB RATIO 1.2 (1.0-2.1); ALBUMIN 3.3 g/dL (3.5-5.0); ALT/SGPT 32 U/L (21-72); AST/SGOT 25 U/L (17-59); BLOOD UREA NITROGEN 21 mg/dL (9-20); CALCIUM 8.6 mg/dl (8.6-10.4); GFR NON-AFRICAN AMERICAN 55
--- NOTE | 2018-05-18 08:23 | CON ---
DATE: 05/17/2018 FOLLOWUP RENAL CONSULTATION LOCATION: The patient is located in room 353, bed A. REQUESTED BY: Gracie Epstein DO REASON FOR RENAL CONSULTATION: Acute renal failure. HISTORY OF PRESENT ILLNESS: Mr. Cordova is a 68-year-old male with a past medical history significant for hypertension, hyperlipidemia, enlarged prostate, and occasional difficulty to urinate, who was admitted with a chief complaint of diarrhea for two days prior to the admission and found to have increased BUN and creatinine, decreased urine output with acute renal failure and bandemia. CT scan consistent with severe colitis. The patient is on IV antibiotics. The patient is feeling better. Claims No chest pain, no palpitation. No fever, no cough, no abdominal pain. No nausea or vomiting. PHYSICAL EXAMINATION: VITAL SIGNS: As follows: Blood pressure 101/63, pulse 92, respirations 20, temperature 97.8, saturation 98%. Height 5 feet 4 inches, weight is 122 pounds. GENERAL: Mr. Cordova is a 68-year-old male, moderately built, moderately nourished, not in distress. HEENT: Pupils normal and reactive to light and accommodation. Conjunctivae pink. Sclerae anicteric. Tongue is moist. Trachea is midline. LUNGS: Symmetric on both sides. Bilateral breath sounds present. Clear to auscultation. CVS: [place] at the fifth intercostal space, midclavicular line. S1, S2 audible. No murmur or gallop. ABDOMEN: Normal in appearance. Soft, tympanitic. No guarding. No rigidity. No hepatosplenomegaly. [employer]: The patient is alert, awake, oriented x3. Nonfocal neuro examination. Cranial nerves II through XII grossly intact. Sensory and motor system is within normal limits. EXTREMITIES: No cyanosis, no clubbing, no edema. CURRENT MEDICATIONS: Include as follows: Bacid one capsule p.o. 2 times daily, Flagyl 500 IV every 8 hours, Flomax 0.4 mg p.o. daily, subcu heparin 5000 every 8 hours, and Zosyn 2.25 g IV every 8 hours. LABORATORY DATA: Include as follows: As of 05/17/2018, WBC 9, hemoglobin 12.1, hematocrit is 35, platelets 328, neutrophils 48, bands 19, lymph 12, , monos 14, and eosinophils 5%. Other laboratory data: Sodium 133, potassium 4.5, chloride 98, CO2 of 22, BUN 39, creatinine 2.1, glucose 135, and calcium 8.3. Serum osmolality 279. Total bili 0.5, AST 31, ALT 41, alkaline phosphatase 46, total protein 6, albumin is 3.2, procalcitonin 0.55. Urine culture is positive for gram-positive cocci, stool for ova and parasite negative, blood culture negative. Stool culture is negative for Salmonella, Shigella, Campylobacter. ASSESSMENT: In summary, Mr. Cordova is a 68-year-old elderly male with a history of hypertension, hyperlipidemia with enlarged prostate and occasional difficulty in urination who was admitted with diarrhea, severe weakness, increased BUN and creatinine, bandemia, and severe colitis. 1. Nonoliguric acute renal failure, most likely secondary to acute tubular necrosis, secondary to severe dehydration. 2. Severe colitis. 3. High prostate-specific antigen with enlarged prostate. Rule out prostate cancer. 4. Urinary tract infection. Continue intravenous antibiotics as per Infectious Diseases recommendations and continue intravenous fluids. Encouraged p.o. fluids and repeat basic metabolic profile in a.m. Thank you for allowing me to participate in your patient's care. Kyle Charlton MD
[2018-05-18] MEDS: Lactobacillus Acidophilus 500 MU Cap PO SCH ×2 (10:02→17:00)
--- NOTE | 2018-05-18 11:18 | CP.PCM.PN ---
Subjective - Date & Time of Evaluation Date of Evaluation: 05/18/18 Time of Evaluation: 11:18 - Subjective Subjective: pt is seen and examined, follow up consult is dictated #[id number] s.cr improving c/w ivf c/w iv abx Objective - Vital Signs/Intake and Output Vital Signs (last 24 hours): Temp Pulse Resp BP Pulse Ox 97.7 F 79 20 108/71 99 05/18/18 07:56 05/18/18 07:56 05/18/18 07:56 05/18/18 07:56 05/18/18 07:56 Intake and Output: 05/18/18 05/18/18 06:59 18:59 Intake Total 1900 Output Total 1000 Balance 900 - Medications Medications: Current Medications Heparin Sodium (Porcine) (Heparin) 5,000 units SC Q8 [facility] Last Admin: 05/18/18 05:37 Dose: 5,000 units Potassium Chloride/Dextrose/Sod Cl (Potassium Chl 20 Meq In D5-1/2ns) 1,000 mls @ 100 mls/hr IV .Q10H [facility] Last Admin: 05/18/18 05:40 Dose: Not Given Metronidazole (Flagyl) 500 mg in 100 mls @ 100 mls/hr IVPB Q8H [facility]; Protocol Last Admin: 05/18/18 10:03 Dose: 100 mls/hr Piperacillin Sod/Tazobactam Sod (Zosyn 2.25 Gm Iv Premix) 2.25 gm in 50 mls @ 100 mls/hr IVPB Q8 [facility]; Protocol Last Admin: 05/18/18 05:05 Dose: 100 mls/hr Lactobacillus Acidophilus (Bacid Acidophilus) 1 cap PO BID [facility] Last Admin: 05/18/18 10:02 Dose: 1 cap Tamsulosin HCl (Flomax) 0.4 mg PO DAILY [facility] Last Admin: 05/18/18 10:02 Dose: 0.4 mg - Labs Labs: 05/18/18 07:25 05/18/18 07:25
--- NOTE | 2018-05-18 15:12 | CP.PCM.PN ---
Subjective - Date & Time of Evaluation Date of Evaluation: 05/18/18 Time of Evaluation: 15:10 - Subjective Subjective: F/u diarrhea No diarrhea today. Tolerating solids. Denies fevers, chills, abdominal pain. Renal function improving with hydration Objective - Vital Signs/Intake and Output Vital Signs (last 24 hours): Temp Pulse Resp BP Pulse Ox 97.7 F 79 20 108/71 99 05/18/18 07:56 05/18/18 07:56 05/18/18 07:56 05/18/18 07:56 05/18/18 07:56 Intake and Output: 05/18/18 05/18/18 06:59 18:59 Intake Total 1900 1000 Output Total 1000 Balance 900 1000 - Medications Medications: Current Medications Heparin Sodium (Porcine) (Heparin) 5,000 units SC Q8 [facility] Last Admin: 05/18/18 05:37 Dose: 5,000 units Potassium Chloride/Dextrose/Sod Cl (Potassium Chl 20 Meq In D5-1/2ns) 1,000 mls @ 100 mls/hr IV .Q10H [facility] Last Admin: 05/18/18 05:40 Dose: Not Given Metronidazole (Flagyl) 500 mg in 100 mls @ 100 mls/hr IVPB Q8H [facility]; Protocol Last Admin: 05/18/18 10:03 Dose: 100 mls/hr Piperacillin Sod/Tazobactam Sod (Zosyn 2.25 Gm Iv Premix) 2.25 gm in 50 mls @ 100 mls/hr IVPB Q8 [facility]; Protocol Last Admin: 05/18/18 13:20 Dose: 100 mls/hr Lactobacillus Acidophilus (Bacid Acidophilus) 1 cap PO BID [facility] Last Admin: 05/18/18 10:02 Dose: 1 cap Tamsulosin HCl (Flomax) 0.4 mg PO DAILY [facility] Last Admin: 05/18/18 10:02 Dose: 0.4 mg - Labs Labs: 05/18/18 07:25 05/18/18 07:25 - Constitutional Appears: Well, No Acute Distress - Head Exam Head Exam: NORMOCEPHALIC - Neck Exam Neck Exam: Normal Inspection - Respiratory Exam Respiratory Exam: Clear to Ausculation Bilateral - Cardiovascular Exam Cardiovascular Exam: REGULAR RHYTHM - GI/Abdominal Exam GI & Abdominal Exam: Soft, Normal Bowel Sounds. absent: Tenderness Assessment and Plan (1) Diarrhea Assessment & Plan: Clinically improved with conservative therapy. Advance diet as tolerated Status: Acute
--- NOTE | 2018-05-18 18:01 | CP.PCM.PN ---
<Shawn Agudelo - Last Filed: 05/18/18 17:58> Subjective - Date & Time of Evaluation Date of Evaluation: 05/18/18 Time of Evaluation: 09:15 - Subjective Subjective: Medicine Progress Note for Hospitalist Service Pt seen and examined at bedside this am. States he tolerated clear diet for dinner and breakfast this am without concerns, denied n/v or abd pain postprandial. Interested in advancing diet today. Reports good appetite. Denied fever, chills, chest pain, sob, n/v/d/c, urinary complaints, or other symptoms. No acute events reported overnight. Objective - Vital Signs/Intake and Output Vital Signs (last 24 hours): Temp Pulse Resp BP Pulse Ox 98.2 F 85 20 129/65 99 05/18/18 16:00 05/18/18 16:00 05/18/18 16:00 05/18/18 16:00 05/18/18 16:00 Intake and Output: 05/18/18 05/18/18 06:59 18:59 Intake Total 1900 1000 Output Total 1000 Balance 900 1000 - Medications Medications: Current Medications Heparin Sodium (Porcine) (Heparin) 5,000 units SC Q8 [facility] Last Admin: 05/18/18 05:37 Dose: 5,000 units Potassium Chloride/Dextrose/Sod Cl (Potassium Chl 20 Meq In D5-1/2ns) 1,000 mls @ 100 mls/hr IV .Q10H [facility] Last Admin: 05/18/18 16:59 Dose: 100 mls/hr Metronidazole (Flagyl) 500 mg in 100 mls @ 100 mls/hr IVPB Q8H [facility]; Protocol Last Admin: 05/18/18 10:03 Dose: 100 mls/hr Piperacillin Sod/Tazobactam Sod (Zosyn 2.25 Gm Iv Premix) 2.25 gm in 50 mls @ 100 mls/hr IVPB Q8 [facility]; Protocol Last Admin: 05/18/18 13:20 Dose: 100 mls/hr Lactobacillus Acidophilus (Bacid Acidophilus) 1 cap PO BID [facility] Last Admin: 05/18/18 17:00 Dose: 1 cap Tamsulosin HCl (Flomax) 0.4 mg PO DAILY [facility] Last Admin: 05/18/18 10:02 Dose: 0.4 mg - Labs Labs: 05/18/18 07:25 05/18/18 07:25 - Constitutional Appears: Non-toxic, No Acute Distress - Head Exam Head Exam: ATRAUMATIC, NORMOCEPHALIC - Eye Exam Eye Exam: EOMI, Normal appearance, PERRL - ENT Exam ENT Exam: Mucous Membranes Moist - Neck Exam Neck Exam: Full ROM, Normal Inspection - Respiratory Exam Respiratory Exam: Clear to Ausculation Bilateral, NORMAL BREATHING PATTERN. absent: Rales, Rhonchi, Wheezes - Cardiovascular Exam Cardiovascular Exam: REGULAR RHYTHM, +S1, +S2 - GI/Abdominal Exam GI & Abdominal Exam: Soft, Normal Bowel Sounds. absent: Distended, Firm, Guarding, Rigid, Tenderness, Organomegaly, Rebound - Extremities Exam Extremities Exam: Full ROM, Normal Capillary Refill, Normal Inspection - Neurological Exam Neurological Exam: Alert, Awake, CN II-XII Intact, Oriented x3 - Psychiatric Exam Psychiatric exam: Normal Affect, Normal Mood - Skin Skin Exam: Dry, Intact, Normal Color, Warm Assessment and Plan - Assessment and Plan (Free Text) Assessment: 68 M PMhx HTN, CKD, HLD, BPH, diverticulosis noted on recent colonoscopy (without prior complaints or previous flare-ups) who presented with watery diarrhea, being treated for diverticulitis/colitis. Urinary retention and TRACEY noted on admission with BPH, improving today. Nephrology, GI, ID, and Urology consulted. Plan: Colitis vs. Diverticulitis On admission: Temp increased to 100.3, Bandemia noted 38, No leukocytosis. 05/15/18-CT abd/pelvis with diverticular findings noted in the sigmoid colon. Findings suspicious for diverticulitis. Patient denies having a previous flare- up 05/16/18-CT abd/pelvis PO contrast: Severe ileitis and hayes colitis, likely infectious/inflammatory in etiology (see full report). C/w Zosyn and Flagyl at this time; complete 7 day course of anbx as per ID, f/u re transfer to PO meds Fluid rehydration -D5 1/2 NS with 20 meq Potassium Tolerating clears, advanced to soft diet today, continue to monitor, advance as tolerated lactate: 1.1 Procalcitonin: 2.21 Blood cx: preliminary No growth 24 hours Stool cx: preliminary No growth Cdiff toxin negative Patient had colonoscopy August 2017- Refer to complete results in medical record. ID, Dr. Aldrich, consulted. Help appreciated Continue IV empiric abx. F/u culture reports. GI, Dr. Soares/Letha, consulted. Help appreciated. TRACEY Cr: 3.3 on admission; improving today Ur osm: 366, Ur Cr: 200.2, Ur Na: 20 FeNa: 0.3%: prerenal Nephro, Dr. Charlton, consulted, help appreciated. IVF Avoid nephrotoxic meds CKD Fluids as noted above Monitor renal function Per [employer] (Dr. Charlton)- F/U Additional recommendaions Urinary retention Per nursing, patient had to be straight cath-ed on admission in order to receive UA. Patient denies signs of retention prior to this admission Bladder U/s 05/15: thick walled urinary bladder concerning for possible cystitis vs. bladder outlet obstruction, unable to void w/ post-void residual of 104 cc, heterogenous and prominent prostate, R ureteral jet not well visualized 05/15/18- 106cc pre-void volume 05/16/18- Patient was able to void freely without use of straight cath/cabrera. Will continue bladder scans every shift. UA showed hyaline casts and amorphous sediments Urine cx straight cath neg Urine cx mid stream growing gram pos cocci, f/u final results Monitor ins and outs HTN Normotensive at this time. Will monitor and medically manage at this time Enlarged prostate Chronic. Confirmed findings on CT imaging. Refer to full report. Patient follows up with Urologist, Dr. Ti Deshpande for management. Urology consulted, recs appreciated Continue Flomax 0.4 mg PO daily 05/16/18 PSA: 62.[address] Deshpande, who did LINDSAY at bedside yesterday, and recommended pt f/u outpatient for possible prostate bx/further work-up of elevated PSA and enlarged prostate Prophylactic measure DVT prophylaxis- Heparin 5,000 units Q8 [facility] No indication for GI prophylaxis at this time Pt seen, examined with, and plan discussed with Dr. Cheng, attending. Shawn Agudelo DO PGY-1, [employer] Pager #[phone] <Andi Cheng - Last Filed: 05/20/18 17:32> Attending/Attestation - Attestation I have personally seen and examined this patient.: Yes I have fully participated in the care of the patient.: Yes I have reviewed all pertinent clinical information, including history, physical exam and plan: Yes Notes (Text): Colitis / Diverticulitis TRACEY on CKD
--- NOTE | 2018-05-18 18:58 | CP.PCM.PN ---
Subjective - Date & Time of Evaluation Date of Evaluation: 05/18/18 Time of Evaluation: 08:00 - Subjective Subjective: diarrhea and TRACEY resolving afeb nad Objective - Vital Signs/Intake and Output Vital Signs (last 24 hours): Temp Pulse Resp BP Pulse Ox 98.2 F 85 20 129/65 99 05/18/18 16:00 05/18/18 16:00 05/18/18 16:00 05/18/18 16:00 05/18/18 16:00 Intake and Output: 05/18/18 05/18/18 06:59 18:59 Intake Total 1900 1000 Output Total 1000 Balance 900 1000 - Medications Medications: Current Medications Heparin Sodium (Porcine) (Heparin) 5,000 units SC Q8 [facility] Last Admin: 05/18/18 05:37 Dose: 5,000 units Potassium Chloride/Dextrose/Sod Cl (Potassium Chl 20 Meq In D5-1/2ns) 1,000 mls @ 100 mls/hr IV .Q10H [facility] Last Admin: 05/18/18 16:59 Dose: 100 mls/hr Metronidazole (Flagyl) 500 mg in 100 mls @ 100 mls/hr IVPB Q8H [facility]; Protocol Last Admin: 05/18/18 10:03 Dose: 100 mls/hr Piperacillin Sod/Tazobactam Sod (Zosyn 2.25 Gm Iv Premix) 2.25 gm in 50 mls @ 100 mls/hr IVPB Q8 [facility]; Protocol Last Admin: 05/18/18 13:20 Dose: 100 mls/hr Lactobacillus Acidophilus (Bacid Acidophilus) 1 cap PO BID [facility] Last Admin: 05/18/18 17:00 Dose: 1 cap Saccharomyces Boulardii (Florastor) 250 mg PO BID [facility] Tamsulosin HCl (Flomax) 0.4 mg PO DAILY [facility] Last Admin: 05/18/18 10:02 Dose: 0.4 mg - Labs Labs: 05/18/18 07:25 05/18/18 07:25 - Constitutional Appears: Non-toxic, Chronically Ill - Head Exam Head Exam: NORMOCEPHALIC - Eye Exam Eye Exam: PERRL - ENT Exam ENT Exam: Mucous Membranes Dry - Neck Exam Neck Exam: absent: Lymphadenopathy - Respiratory Exam Respiratory Exam: Decreased Breath Sounds - Cardiovascular Exam Cardiovascular Exam: REGULAR RHYTHM - GI/Abdominal Exam GI & Abdominal Exam: Distended, Soft - Rectal Exam Rectal Exam: Deferred - Exam Exam: NORMAL INSPECTION Assessment and Plan (1) Acute kidney injury Status: Acute (2) Diarrhea Status: Acute (3) Enlarged prostate Status: Acute (4) CKD (chronic kidney disease) Status: Chronic (5) HTN (hypertension) Status: Chronic (6) Enterocolitis Status: Acute (7) Enterocolitis Status: Acute - Assessment and Plan (Free Text) Assessment: bacterial enterocolitis resolving - procalcitonin down to 0.55 TRACEY improved cont hydration to complete 7 days rx Plan: and GI follow up colonoscopy as out pt
[2018-05-19] MEDS: metroNIDAZOLE IV 500 mg/100 ml 500 MG/100 ML BAG IVPB SCH ×3 (01:54→18:23)
[2018-05-19] MEDS: Potassium Ch 20mEq in D5-1/2NS 1,000 ML IV SCH (03:50)
--- NOTE | 2018-05-19 04:53 | PN ---
DATE: 05/18/2018 FOLLOWUP RENAL CONSULTATION LOCATION: The patient is located in room 353, bed A. REQUESTED BY: Andi Cheng MD REASON FOR FOLLOWUP: Acute renal failure, chronic kidney disease. SUBJECTIVE: Mr. Cordova is a 68-year-old elderly male with a history of hypertension, hyperlipidemia, enlarged prostate, occasional difficulty in urination, being followed by Dr. Deshpande, was admitted with a chief complaint of severe diarrhea for two days prior to admission and found to have increased BUN and creatinine, and also found to have severe colitis. The patient is feeling much better now. No chest pain. No palpitations. No fever. No cough. No abdominal pain. No diarrhea. Started clear liquids and advancing diet today as per the primary team. Urine output is picking up as per the patient. PHYSICAL EXAMINATION: VITAL SIGNS: Blood pressure 108/71, pulse 79, respirations 20, temperature 97.7, saturation 99%. Height 5 feet 4 inches. Weight is 122 pounds. GENERAL: Mr. Cordova is a 68-year-old elderly male, moderately built, moderately nourished, not in distress. HEENT: Pupils are normal and reactive to light and accommodation. Conjunctivae pink. Sclerae anicteric. Tongue is moist and trachea is midline. LUNGS: Symmetric on both sides. Bilateral breath sounds present. Clear to auscultation. CARDIOVASCULAR SYSTEM: [place] at the fifth intercostal space, midclavicular line. S1 and S2 audible. No murmur. No gallop. ABDOMEN: Normal in appearance, soft, tympanitic. No guarding. No rigidity. No hepatosplenomegaly. CENTRAL NERVOUS SYSTEM: The patient is alert, awake, oriented x3. Nonfocal neuro examination. Cranial nerve II through XII grossly intact. Sensory and motor system is within normal limits. EXTREMITIES: No cyanosis, no clubbing, no edema. CURRENT MEDICATIONS: Include as follows: Bacid one capsule p.o. b.i.d., Flagyl 500 mg IV every 8 hours, Flomax 0.4 mg p.o. daily, Florastor 250 mg p.o. b.i.d., subcutaneous heparin 5000 units every 8 hours, D5 half-normal saline with 40 mEq of KCl at 100 mL per hour, and Zosyn 2.25 g IV every 8 hours. LABORATORY DATA: Include as follows as of 05/18/2018: WBC 7.1, hemoglobin 12.1, hematocrit is 34, platelets 361. Sodium 135, potassium 4.1, chloride 106, CO2 of 19, BUN 21, creatinine 1.3, glucose 127, calcium 8.6. Total bili 0.6, AST 25, ALT 32, alkaline phosphatase is 43, total protein 6, albumin 3.3. Urine culture as of 05/16/2018, positive for gram-positive coccus less than 10,000 colony-forming units. ASSESSMENT AND PLAN: In summary, Mr. Cordova is a 68-year-old elderly male with a history of hypertension, hyperlipidemia, enlarged prostate who was admitted with diarrhea for two days prior to admission with increased blood urea nitrogen and creatinine and severe dehydration. 1. Acute renal failure on chronic kidney disease, secondary to severe dehydration and intravascular depletion secondary to severe diarrhea. 2. Status post diarrhea, rule out colitis or suspected diverticulitis. 3. High prostate-specific antigen with enlarged prostate, rule out prostate cancer. Continue gentle intravenous hydration. Renal function is back to his baseline, 1.2 to 1.3. The patient is stable from the renal standpoint. Discussed with Dr. Cheng in rounds. Continue antibiotics as per Dr. Aldrich. Kyle Charlton MD
[2018-05-19] MEDS: Piperacill/Tazo 2.25gm in Dex 2.25 GM/50 ML BAG IVPB SCH ×3 (05:11→21:55)
[2018-05-19 07:29] LABS: BASO % 0.8 % (0.0-2.0); EOS # 0.5 K/uL (0.0-0.7); EOS % 9.1 % (0.0-4.0); HEMOGLOBIN 11.9 g/dL (12.0-18.0); LYMPH # 1.1 K/uL (1.0-4.3); LYMPH % 18.9 % (20.0-40.0); MEAN CELL VOLUME 98.6 fL (80.0-94.0); MEAN CORPUSCULAR HGB CONC 34.5 g/dL (33.0-37.0); MEAN PLATELET VOLUME 7.5 fL (7.2-11.7); MONO # 0.7 K/uL (0.0-0.8); NEUT # 3.4 K/uL (1.8-7.0); NEUT % 59.2 % (50.0-75.0); RBC 3.49 Mil/uL (4.40-5.90); RED CELL DISTRIBUTION WIDTH 13.8 % (11.5-14.5); WHITE BLOOD COUNT 5.8 K/uL (4.8-10.8)
[2018-05-19 07:44] LABS: ALB/GLOB RATIO 1.2 (1.0-2.1); ALBUMIN 3.1 g/dL (3.5-5.0); ALT/SGPT 39 U/L (21-72); AST/SGOT 36 U/L (17-59); BLOOD UREA NITROGEN 12 mg/dL (9-20); CALCIUM 8.8 mg/dl (8.6-10.4); GFR NON-AFRICAN AMERICAN > 60
[2018-05-19] MEDS: Saccharomyces Boulardi 250 mg Cap PO SCH ×2 (09:53→18:23)
--- NOTE | 2018-05-19 13:03 | CP.PCM.PN ---
Subjective - Date & Time of Evaluation Date of Evaluation: 05/19/18 Time of Evaluation: 13:00 - Subjective Subjective: f/u diarrhea/colitis Daily gradual improvement in diarrhea. Patient reports fecal incontinence when urinating. Tolerating solid foods. Denies abdominal pain. Stool cultures and CDiff toxin negative. No need for urgent inpatient colonos copy. Consider discharge home, patient will f/u with Dr Monae in office. Objective - Vital Signs/Intake and Output Vital Signs (last 24 hours): Temp Pulse Resp BP Pulse Ox 97.5 F L 84 20 148/76 96 05/19/18 08:00 05/19/18 08:00 05/19/18 08:00 05/19/18 08:00 05/19/18 08:00 Intake and Output: 05/19/18 05/19/18 06:59 18:59 Intake Total 1999 Balance 1999 - Medications Medications: Current Medications Heparin Sodium (Porcine) (Heparin) 5,000 units SC Q8 [facility] Last Admin: 05/19/18 05:11 Dose: 5,000 units Metronidazole (Flagyl) 500 mg in 100 mls @ 100 mls/hr IVPB Q8H [facility]; Protocol Last Admin: 05/19/18 09:53 Dose: 100 mls/hr Piperacillin Sod/Tazobactam Sod (Zosyn 2.25 Gm Iv Premix) 2.25 gm in 50 mls @ 100 mls/hr IVPB Q8 [facility]; Protocol Last Admin: 05/19/18 05:11 Dose: 100 mls/hr Saccharomyces Boulardii (Florastor) 250 mg PO BID [facility] Last Admin: 05/19/18 09:53 Dose: 250 mg Tamsulosin HCl (Flomax) 0.4 mg PO DAILY [facility] Last Admin: 05/19/18 09:53 Dose: 0.4 mg - Labs Labs: 05/19/18 06:51 05/19/18 06:51 - Constitutional Appears: Well, No Acute Distress - Head Exam Head Exam: NORMOCEPHALIC - Eye Exam Eye Exam: absent: Scleral icterus - Respiratory Exam Respiratory Exam: Clear to Ausculation Bilateral - Cardiovascular Exam Cardiovascular Exam: REGULAR RHYTHM - GI/Abdominal Exam GI & Abdominal Exam: Soft, Normal Bowel Sounds. absent: Tenderness, Mass - Extremities Exam Extremities Exam: Normal Inspection - Neurological Exam Neurological Exam: Awake, Oriented x3 - Psychiatric Exam Psychiatric exam: Normal Affect - Skin Skin Exam: Warm Assessment and Plan (1) Diarrhea Assessment & Plan: Undetermined cause. CT showed severe ileocolitis. Clinically improving with conservative treatment Had colonoscopy in August- if tolerating diet can be discharged, f/u with Dr Monae Status: Acute
--- NOTE | 2018-05-19 18:00 | CP.PCM.PN ---
Subjective - Date & Time of Evaluation Date of Evaluation: 05/19/18 Time of Evaluation: 08:00 - Subjective Subjective: afeb nad rx in progress] Objective - Vital Signs/Intake and Output Vital Signs (last 24 hours): Temp Pulse Resp BP Pulse Ox 99.1 F 71 20 135/76 100 05/19/18 15:00 05/19/18 15:00 05/19/18 15:00 05/19/18 15:00 05/19/18 15:00 Intake and Output: 05/19/18 05/19/18 06:59 18:59 Intake Total 1999 1280 Balance 1999 1280 - Medications Medications: Current Medications Heparin Sodium (Porcine) (Heparin) 5,000 units SC Q8 [facility] Last Admin: 05/19/18 13:50 Dose: 5,000 units Metronidazole (Flagyl) 500 mg in 100 mls @ 100 mls/hr IVPB Q8H [facility]; Protocol Last Admin: 05/19/18 09:53 Dose: 100 mls/hr Piperacillin Sod/Tazobactam Sod (Zosyn 2.25 Gm Iv Premix) 2.25 gm in 50 mls @ 100 mls/hr IVPB Q8 [facility]; Protocol Last Admin: 05/19/18 13:50 Dose: 100 mls/hr Saccharomyces Boulardii (Florastor) 250 mg PO BID [facility] Last Admin: 05/19/18 09:53 Dose: 250 mg Tamsulosin HCl (Flomax) 0.4 mg PO DAILY [facility] Last Admin: 05/19/18 09:53 Dose: 0.4 mg - Labs Labs: 05/19/18 06:51 05/19/18 06:51 - Constitutional Appears: Non-toxic, Chronically Ill - Head Exam Head Exam: NORMOCEPHALIC - Eye Exam Eye Exam: PERRL - ENT Exam ENT Exam: Mucous Membranes Dry - Neck Exam Neck Exam: absent: Lymphadenopathy - Respiratory Exam Respiratory Exam: Decreased Breath Sounds - Cardiovascular Exam Cardiovascular Exam: REGULAR RHYTHM - GI/Abdominal Exam GI & Abdominal Exam: Distended, Soft. absent: Tenderness Assessment and Plan (1) Acute kidney injury Status: Acute (2) Diarrhea Status: Acute (3) Enlarged prostate Status: Acute (4) CKD (chronic kidney disease) Status: Chronic (5) HTN (hypertension) Status: Chronic (6) Enterocolitis Status: Acute (7) Enterocolitis Status: Acute - Assessment and Plan (Free Text) Assessment: cont rx switch to po RX
--- NOTE | 2018-05-19 18:07 | CP.PCM.PN ---
Subjective - Date & Time of Evaluation Date of Evaluation: 05/19/18 Time of Evaluation: 18:07 - Subjective Subjective: pt is feeling better, no complaints, occ loose bm no fever, no abd. pain Objective - Vital Signs/Intake and Output Vital Signs (last 24 hours): Temp Pulse Resp BP Pulse Ox 99.1 F 71 20 135/76 100 05/19/18 15:00 05/19/18 15:00 05/19/18 15:00 05/19/18 15:00 05/19/18 15:00 Intake and Output: 05/19/18 05/19/18 06:59 18:59 Intake Total 1999 1280 Balance 1999 1280 - Medications Medications: Current Medications Heparin Sodium (Porcine) (Heparin) 5,000 units SC Q8 [facility] Last Admin: 05/19/18 13:50 Dose: 5,000 units Metronidazole (Flagyl) 500 mg in 100 mls @ 100 mls/hr IVPB Q8H [facility]; Protocol Last Admin: 05/19/18 09:53 Dose: 100 mls/hr Piperacillin Sod/Tazobactam Sod (Zosyn 2.25 Gm Iv Premix) 2.25 gm in 50 mls @ 100 mls/hr IVPB Q8 [facility]; Protocol Last Admin: 05/19/18 13:50 Dose: 100 mls/hr Saccharomyces Boulardii (Florastor) 250 mg PO BID [facility] Last Admin: 05/19/18 09:53 Dose: 250 mg Tamsulosin HCl (Flomax) 0.4 mg PO DAILY [facility] Last Admin: 05/19/18 09:53 Dose: 0.4 mg - Labs Labs: 05/19/18 06:51 05/19/18 06:51 - Constitutional Appears: Well, Non-toxic, No Acute Distress - Head Exam Head Exam: ATRAUMATIC, NORMAL INSPECTION, NORMOCEPHALIC - Eye Exam Eye Exam: EOMI, Normal appearance, PERRL Pupil Exam: NORMAL ACCOMODATION, PERRL - ENT Exam ENT Exam: Mucous Membranes Moist, Normal Exam - Neck Exam Neck Exam: Full ROM - Respiratory Exam Respiratory Exam: Clear to Ausculation Bilateral, NORMAL BREATHING PATTERN - Cardiovascular Exam Cardiovascular Exam: REGULAR RHYTHM, +S1, +S2 - GI/Abdominal Exam GI & Abdominal Exam: Normal Bowel Sounds - Extremities Exam Extremities Exam: Full ROM, Normal Capillary Refill, Normal Inspection - Neurological Exam Neurological Exam: Alert, Awake, CN II-XII Intact, Normal Gait, Oriented x3 - Psychiatric Exam Psychiatric exam: Normal Affect, Normal Mood - Skin Skin Exam: Normal Color, Warm Assessment and Plan - Assessment and Plan (Free Text) Plan: 68 yo WM with pmh/o htn, hld, enlarged prostate was admitted with cc/o loose bmx 2 days prior to admission, with increased bun/cr, high pSA 1. TRACEY on ckd-3 2. Diarrhea sec to severe colitis/ ? diverticulitis 3. HTN 4. High PSA, with enlarged prostate r/o BPH vs prostate CA encourage po intake renal function improved and s.cr is 1.1 follow up with urology as an out pt for prostate biopsy c/w iv abx asper ID
--- NOTE | 2018-05-19 19:24 | PCM.URO ---
Urology Progress Note - General General: Tolerating Diet - Subjective Abdominal Pain: No Voiding Well: Yes Hematuria: No Good Stream: No Chest Pain: No Fever & Chills: No Other: less diarrhea - Objective Lab Studies: Reviewed (creat=1.1) Lab Results Last 24 Hours: Laboratory Results - last 24 hr 05/19/18 05/19/18 06:51 06:51 WBC 5.8 RBC 3.49 L Hgb 11.9 L Hct 34.4 L MCV 98.6 H MCH 34.0 H MCHC 34.5 RDW 13.8 Plt Count 375 MPV 7.5 Neut % (Auto) 59.2 Lymph % (Auto) 18.9 L Prentiss % (Auto) 12.0 H Eos % (Auto) 9.1 H Baso % (Auto) 0.8 Neut # (Auto) 3.4 Lymph # (Auto) 1.1 Prentiss # (Auto) 0.7 Eos # (Auto) 0.5 Baso # (Auto) 0.0 Sodium 135 Potassium 5.6 H Chloride 106 Carbon Dioxide 22 Anion Gap 13 BUN 12 Creatinine 1.1 Est GFR ( Amer) > 60 Est GFR (Non-Af Amer) > 60 Random Glucose 119 H Calcium 8.8 Phosphorus 1.8 L Magnesium 1.9 Total Bilirubin 0.4 AST 36 ALT 39 Alkaline Phosphatase 45 Total Protein 5.8 L Albumin 3.1 L Globulin 2.7 Albumin/Globulin Ratio 1.2 Intake & Output: Intake & Output 05/19/18 05/19/18 05/20/18 06:59 18:59 06:59 Intake Total 1999 1280 Balance 1999 1280 Intake: Intake, IV Amount 1600 800 Right Forearm 1600 800 Oral 400 480 Other: # Voids Urine, Voided 3 8 # Bowel Movements 4 6 Vital Signs: Vital Signs - 24 hr 05/19/18 05/19/18 05/19/18 00:42 08:00 15:00 Temperature 98.4 F 97.5 F L 99.1 F Pulse Rate 84 84 71 Respiratory 20 20 20 Rate Blood Pressure 125/72 148/76 135/76 O2 Sat by Pulse 97 96 100 Oximetry - Physical Exam Abdominal Exam: Soft, Non-Tender, Non-Distended - Plan See Orders: Yes (Repeat psa) Additional Information: imp: improving overall. improved renal function. elevated psa. Eosinophilia - Date & Time of Note Date: 05/19/18 Time: 11:40
--- NOTE | 2018-05-19 20:04 | CP.PCM.PN ---
<Shawn Agudelo - Last Filed: 05/19/18 20:29> Subjective - Date & Time of Evaluation Date of Evaluation: 05/19/18 Time of Evaluation: 09:10 - Subjective Subjective: Medicine Progress Note for Hospitalist Service Pt seen and examined at bedside this am. Denies abd pain, states he has been tolerating soft diet well. Denies fever/chills. Reports several episodes of fecal incontinence this am while urinating. Ambulating around room without concerns, states he feels better than yesterday. Denies headache, dizziness, chest pain, sob, n/v or other symptoms. No acute events reported overnight. Objective - Vital Signs/Intake and Output Vital Signs (last 24 hours): Temp Pulse Resp BP Pulse Ox 99.1 F 71 20 135/76 100 05/19/18 15:00 05/19/18 15:00 05/19/18 15:00 05/19/18 15:00 05/19/18 15:00 Intake and Output: 05/19/18 05/20/18 18:59 06:59 Intake Total 1280 Balance 1280 - Medications Medications: Current Medications Heparin Sodium (Porcine) (Heparin) 5,000 units SC Q8 [facility] Last Admin: 05/19/18 13:50 Dose: 5,000 units Metronidazole (Flagyl) 500 mg in 100 mls @ 100 mls/hr IVPB Q8H [facility]; Protocol Last Admin: 05/19/18 18:23 Dose: 100 mls/hr Piperacillin Sod/Tazobactam Sod (Zosyn 2.25 Gm Iv Premix) 2.25 gm in 50 mls @ 100 mls/hr IVPB Q8 [facility]; Protocol Last Admin: 05/19/18 13:50 Dose: 100 mls/hr Saccharomyces Boulardii (Florastor) 250 mg PO BID [facility] Last Admin: 05/19/18 18:23 Dose: 250 mg Tamsulosin HCl (Flomax) 0.4 mg PO DAILY [facility] Last Admin: 05/19/18 09:53 Dose: 0.4 mg - Labs Labs: 05/19/18 06:51 05/19/18 06:51 - Constitutional Appears: Non-toxic, No Acute Distress - Head Exam Head Exam: ATRAUMATIC, NORMOCEPHALIC - Eye Exam Eye Exam: EOMI, Normal appearance, PERRL - ENT Exam ENT Exam: Mucous Membranes Moist - Respiratory Exam Respiratory Exam: Clear to Ausculation Bilateral, NORMAL BREATHING PATTERN. absent: Rales, Rhonchi, Wheezes - Cardiovascular Exam Cardiovascular Exam: REGULAR RHYTHM, +S1, +S2. absent: Gallop, Rubs, Murmur - GI/Abdominal Exam GI & Abdominal Exam: Soft, Normal Bowel Sounds. absent: Tenderness, Organomegaly, Rebound - Extremities Exam Extremities Exam: Full ROM, Normal Capillary Refill, Normal Inspection. absent: Calf Tenderness, Joint Swelling, Pedal Edema - Neurological Exam Neurological Exam: Alert, Awake, CN II-XII Intact, Normal Gait, Oriented x3 - Psychiatric Exam Psychiatric exam: Normal Affect, Normal Mood - Skin Skin Exam: Dry, Intact, Normal Color, Warm Assessment and Plan - Assessment and Plan (Free Text) Assessment: 68 M PMhx HTN, CKD, HLD, BPH, diverticulosis noted on recent colonoscopy (without prior complaints or previous flare-ups) who presented with watery diarrhea, being treated for diverticulitis/colitis. Urinary retention and TRACEY noted on admission with BPH, improving. Nephrology, GI, ID, and Urology consulted. Plan: Colitis vs. Diverticulitis On admission: Temp increased to 100.3, Bandemia noted 38, No leukocytosis. 05/15/18-CT abd/pelvis with diverticular findings noted in the sigmoid colon. Findings suspicious for diverticulitis. Patient denies having a previous flare- up 05/16/18-CT abd/pelvis PO contrast: Severe ileitis and hayes colitis, likely infectious/inflammatory in etiology (see full report). C/w Zosyn and Flagyl at this time; complete 7 day course of anbx as per ID; ID Ok w/ Cipro/Flagyl PO on d/c Fluid rehydration -D5 1/2 NS with 20 meq Potassium Tolerating clears, advanced to soft diet today, continue to monitor, advance as tolerated lactate: 1.1 Procalcitonin: 2.21 Blood cx: no growth Stool cx: No growth Cdiff toxin negative Patient had colonoscopy August 2017- Refer to complete results in medical record. ID, Dr. Aldrich, consulted. Help appreciated Continue IV empiric abx. F/u culture reports. GI, Dr. Soares/Letha, consulted. Help appreciated. TRACEY Cr: 3.3 on admission; improving today Ur osm: 366, Ur Cr: 200.2, Ur Na: 20 FeNa: 0.3%: prerenal Nephro, Dr. Charlton, consulted, help appreciated. Can follow as outpatient for chronic care. IVF Avoid nephrotoxic meds CKD Fluids as noted above Monitor renal function Nephro consulted Urinary retention Per nursing, patient had to be straight cath-ed on admission in order to receive UA. Patient denies signs of retention prior to this admission Bladder U/s 05/15: thick walled urinary bladder concerning for possible cystitis vs. bladder outlet obstruction, unable to void w/ post-void residual of 104 cc, heterogenous and prominent prostate, R ureteral jet not well visualized 05/15/18- 106cc pre-void volume 05/16/18- Patient was able to void freely without use of straight cath/cabrera. Will continue bladder scans every shift. UA showed hyaline casts and amorphous sediments Urine cx straight cath neg Urine cx mid stream growing gram pos cocci, f/u final results Monitor ins and outs HTN Normotensive at this time. Will monitor and medically manage at this time Enlarged prostate Chronic. Confirmed findings on CT imaging. Refer to full report. Patient follows up with Urologist, Dr. Ti Deshpande for management. Urology consulted, recs appreciated Continue Flomax 0.4 mg PO daily 05/16/18 PSA: 62.[address] Deshpande, who did LINDSAY at bedside yesterday, and recommended pt f/u outpatient for possible prostate bx/further work-up of elevated PSA and enlarged prostate Prophylactic measure DVT prophylaxis- Heparin 5,000 units Q8 [facility] Ambulates No indication for GI prophylaxis at this time Dispo: Continue to monitor for episodes of fecal incontinence, d/c home when clinically stable. Pt seen, examined with, and plan discussed with Dr. Epstein, attending. Shawn Agudelo DO PGY-1, [employer] Pager #[phone] <Gracie Epstein V - Last Filed: 05/19/18 22:23> Objective - Vital Signs/Intake and Output Vital Signs (last 24 hours): Temp Pulse Resp BP Pulse Ox 99.1 F 71 20 135/76 100 05/19/18 15:00 05/19/18 15:00 05/19/18 15:00 05/19/18 15:00 05/19/18 15:00 Intake and Output: 05/19/18 05/20/18 18:59 06:59 Intake Total 1280 Balance 1280 - Medications Medications: Current Medications Heparin Sodium (Porcine) (Heparin) 5,000 units SC Q8 [facility] Last Admin: 05/19/18 21:53 Dose: 5,000 units Piperacillin Sod/Tazobactam Sod (Zosyn 2.25 Gm Iv Premix) 2.25 gm in 50 mls @ 100 mls/hr IVPB Q8 [facility]; Protocol Last Admin: 05/19/18 21:55 Dose: 100 mls/hr Metronidazole (Flagyl) 500 mg PO Q8 [facility]; Protocol Last Admin: 05/19/18 21:50 Dose: 500 mg Saccharomyces Boulardii (Florastor) 250 mg PO BID [facility] Last Admin: 05/19/18 18:23 Dose: 250 mg Tamsulosin HCl (Flomax) 0.4 mg PO DAILY [facility] Last Admin: 05/19/18 09:53 Dose: 0.4 mg - Labs Labs: 05/19/18 06:51 05/19/18 06:51 Attending/Attestation - Attestation I have personally seen and examined this patient.: Yes I have fully participated in the care of the patient.: Yes I have reviewed all pertinent clinical information, including history, physical exam and plan: Yes Notes (Text): Patient seen, examined and case discussed with medical office scheduler. Patient reports he is feeling better and reports that diarrhea is becoming less frequent notes when he urinates he has episodes of fecal incontinence. Patient started on diet yesterday evening. Patient is afebrile since low grade fever 100.3F. Blood cultures remain negative X4 days. Patient has urine culture; gram positive cocci. Ova and parasite negative. (1) Diverticulitis Bandemia Assessment and Plan: * GI, Dr. Navarrete on board help appreciated * Infectious disease, Dr. Aldrich on board help appreciated * Continue to monitor white count, bandemia, and temperature * CAT scan abdomen and pelvis without by mouth or IV contrast (05/15/18): Fluid filled mildly dilated small bowel loops and fluid in the colon likely related to nonspecific infectious/inflammatory enterocolitis. Sigmoid diverticulosis is apparent moderate circumferential mural thickening in the sigmoid colon is nonspecific could be related to underdistention however mild superimposed acute diverticulitis cannot be excluded. 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 Severe circumferential mural thickening of the ureteral narrowing bladder wall could be related to underdistention. * CAT scan abdomen and pelvis with by mouth contrast only 05/16/2018: Severe ileitis and hayes colitis likely infectious/inflammatory in etiology * Abdominal obstructive series (05/16/18) noted for unremarkable radiographs of the chest and abdomen and no evidence of mechanical bowel obstruction. * Zosyn 2.25 IV every 8 hours * Flagyl 500 g IV every 8 hours * There is a shortage of IV Flagyl per resident discussion with the pharmacy we have converted to PO Flagyl. * Patient had colonoscopy August 2017- Refer to complete results in medical record. * Patient appears he seen by the Dr. Navarrete/[facility]eth[facility] group and was referred connotes group given the winter for the colonoscopy. * Blood cultures from 05/15/2018: No growth * Stool culture from May 05: No Salmonella, Shigella, Campylobacter * Urine culture from May 15: gram positive cocci * stool ova and parasites: negative * Procalcitonin: 2.21-->0.55 Status: Acute (2) Acute renal failure Assessment and Plan: * Nephrology on board help appreciated * Urology on board help appreciated * Etiology including dehydration secondary to diarrhea patient and is currently on home ARB and statin * Patient start on IV fluids * Order for bladder scan every shift * R2 urinary output * PSAs elevated * Will f/u outpatient with urology for further workup including prostate biopsy * BUN/Cr have normalized * Will f/u nephrology as outpatient * Bladder scan from 05/15/2018: Thick-walled urinary bladder measuring up to 8 mm concerning for cystitis versus bladder outlet obstruction. No gross calculi identified. Prevoid bladder volume of 103 mL. Patient was unable to void. Heterogeneous and prominent prostate measuring up to 4.7 cm. Concern for possible cystitis Status: Chronic (3) Urinary retention Assessment and Plan: * Urology also on board * Per nursing, patient had to be straight cath-ed in order to receive UA. * Patient denies signs of retention prior to this admission * UA showed hyaline casts and amorphous sediments * Bladder scan from 05/15/2018: Thick-walled urinary bladder measuring up to 8 mm concerning for cystitis versus bladder outlet obstruction. No gross calculi identified. Prevoid bladder volume of 103 mL. Patient was unable to void. Heterogeneous and prominent prostate measuring up to 4.7 cm. Concern for possible cystitis * Monitor ins and outs * Continue Flomax * Elevated PSA * Will f/u with urology as outpatient for prostate biopsy Status: Acute (4) HTN (hypertension) Assessment and Plan: * Normotensive at this time. * Will monitor and medically manage at this time. * Hold ARB Status: Chronic (5) Enlarged prostate Assessment and Plan: * Chronic. Confirmed findings on CT imaging. Refer to full report. * Patient follows up with Urologist, Dr. Ti Deshpande for management he is currently on vacation being covered by [employer] * Continue Flomax 0.4 mg PO daily * Elevated PSA Status: Acute (6) Prophylactic measure Assessment and Plan: * DVT prophylaxis- Heparin 5,000 units Q8 [facility] * Ambulates * No indication for GI prophylaxis at this time * IV fluids * Bacid 1 tab by mouth twice a day Status: Acute Disposition: Will continue Iv Abx, monitor for improvement in character of diarrhea; if diarrhea improves, will consider discharge in the AM. Upon discharge planning: * Patient to f/u outpatient with Dr. Monae (GI) * Patient to f/u outpatient with Dr. Deshpande for prostate biopsy given elevated PSA. * Patient to complete 7 days total of Abx per ID. * Patient to f/u outpatient with Dr. Busch (nephrology) to monitor renal function.
[2018-05-20] MEDS: Piperacill/Tazo 2.25gm in Dex 2.25 GM/50 ML BAG IVPB SCH ×2 (05:28→14:00)
[2018-05-20 06:40] LABS: BASO # 0.1 K/uL (0.0-0.2); BASO % 1.5 % (0.0-2.0); EOS # 0.4 K/uL (0.0-0.7); EOS % 7.5 % (0.0-4.0); HEMOGLOBIN 12.6 g/dL (12.0-18.0); LYMPH # 1.3 K/uL (1.0-4.3); MEAN CELL VOLUME 97.8 fL (80.0-94.0); MEAN CORPUSCULAR HEMOGLOBIN 33.9 pg (27.0-31.0); MEAN CORPUSCULAR HGB CONC 34.6 g/dL (33.0-37.0); MEAN PLATELET VOLUME 6.8 fL (7.2-11.7); MONO # 0.6 K/uL (0.0-0.8); MONO % 10.5 % (0.0-10.0); NEUT # 3.5 K/uL (1.8-7.0); NEUT % 58.5 % (50.0-75.0); RBC 3.73 Mil/uL (4.40-5.90); RED CELL DISTRIBUTION WIDTH 13.8 % (11.5-14.5); WHITE BLOOD COUNT 5.9 K/uL (4.8-10.8)
[2018-05-20 07:00] LABS: ALB/GLOB RATIO 1.2 (1.0-2.1); ALBUMIN 3.5 g/dL (3.5-5.0); ALT/SGPT 79 U/L (21-72); AST/SGOT 115 U/L (17-59); BLOOD UREA NITROGEN 14 mg/dL (9-20); CALCIUM 9.5 mg/dl (8.6-10.4); GFR NON-AFRICAN AMERICAN > 60
[2018-05-20 07:52] VITALS: BP 154/90; PULSE 85; TEMP 98.4; O2SAT 100
[2018-05-20] MEDS: Saccharomyces Boulardi 250 mg Cap PO SCH (10:07)
[2018-05-20] MEDS ORDERED: Sod Polystyrene Sulf 15 gm/60 ml Susp PO ONE (10:15)
[2018-05-20] MEDS: Sod Polystyrene Sulf 15 gm/60 ml Susp PO ONE ×2 (10:22→10:24)
--- NOTE | 2018-05-20 13:15 | CP.PCM.PN ---
Subjective - Date & Time of Evaluation Date of Evaluation: 05/20/18 Time of Evaluation: 13:12 - Subjective Subjective: Patient states that he had six or seven bowel movements after taking Kayexalate. He denies having abdominal pain, nausea or vomiting. Objective - Vital Signs/Intake and Output Vital Signs (last 24 hours): Temp Pulse Resp BP Pulse Ox 98.4 F 85 20 154/90 H 100 05/20/18 07:51 05/20/18 07:51 05/20/18 07:51 05/20/18 07:51 05/20/18 07:51 Intake and Output: 05/20/18 05/20/18 06:59 18:59 Intake Total 550 300 Output Total 5 Balance 545 300 - Medications Medications: Current Medications Amlodipine Besylate (Norvasc) 5 mg PO DAILY [facility] Last Admin: 05/20/18 10:07 Dose: 5 mg Heparin Sodium (Porcine) (Heparin) 5,000 units SC Q8 [facility] Last Admin: 05/20/18 05:28 Dose: 5,000 units Piperacillin Sod/Tazobactam Sod (Zosyn 2.25 Gm Iv Premix) 2.25 gm in 50 mls @ 100 mls/hr IVPB Q8 [facility]; Protocol Last Admin: 05/20/18 05:28 Dose: 100 mls/hr Metronidazole (Flagyl) 500 mg PO Q8 [facility]; Protocol Last Admin: 05/20/18 05:27 Dose: 500 mg Saccharomyces Boulardii (Florastor) 250 mg PO BID [facility] Last Admin: 05/20/18 10:07 Dose: 250 mg Tamsulosin HCl (Flomax) 0.4 mg PO DAILY [facility] Last Admin: 05/20/18 10:07 Dose: 0.4 mg - Labs Labs: 05/20/18 06:33 05/20/18 06:33 - Constitutional Appears: No Acute Distress - Head Exam Head Exam: ATRAUMATIC, NORMOCEPHALIC - Eye Exam Eye Exam: EOMI, PERRL - Neck Exam Neck Exam: absent: Lymphadenopathy, Thyromegaly - Respiratory Exam Respiratory Exam: NORMAL BREATHING PATTERN. absent: Rales, Rhonchi, Wheezes - Cardiovascular Exam Cardiovascular Exam: REGULAR RHYTHM, +S1, +S2. absent: Gallop, Rubs, Murmur - GI/Abdominal Exam GI & Abdominal Exam: Soft, Normal Bowel Sounds. absent: Tenderness, Mass, Organomegaly - Rectal Exam Rectal Exam: Deferred - Extremities Exam Extremities Exam: absent: Calf Tenderness, Pedal Edema Assessment and Plan (1) Diarrhea Assessment & Plan: Patient continues to experience diarrhea, exacerbated by kayexalate. Stool cultures and C diff were negative. Consider colonoscopy. Status: Acute (2) Elevated liver enzymes Assessment & Plan: Blood work today showed AST 115 (was 36 yesterday) and ALT 79 (70). The most likely etiology is drug-induced hepatotoxicity, perhaps from Zosyn or heparin. Will repeat it after antibiotics are discontinued Status: Acute
--- NOTE | 2018-05-20 22:08 | CP.PCM.DIS ---
Addendum entered and electronically signed by Shawn Agudelo DO 05/21/18 19:04: Discharge summary was sent by fax to PMD Dr. Ridley. Original Note: <Shawn Agudelo - Last Filed: 05/20/18 22:06> Provider - Provider Date of Admission: 05/15/18 17:18 Attending physician: Andi Cheng MD Primary care physician: Dr. Ridley Consults: Nephrology - Dr. Charlton Urology - Dr. Deshpande GI - Dr. Navarrete/Letha ID - Dr. Aldrich Time Spent in preparation of Discharge (in minutes): 45 Diagnosis - Discharge Diagnosis (1) Diverticulitis Status: Acute (2) Enterocolitis Status: Acute (3) Acute kidney injury Status: Acute (4) Enlarged prostate Status: Acute (5) Urinary retention Status: Acute Hospital Course - Lab Results Lab Results: Micro Results 05/15/18 14:45 Blood Blood Culture - Final NO GROWTH AFTER 5 DAYS 05/15/18 14:45 Blood Gram Stain - Final TEST NOT PERFORMED 05/15/18 14:15 Blood Blood Culture - Final NO GROWTH AFTER 5 DAYS 05/15/18 14:15 Blood Gram Stain - Final TEST NOT PERFORMED 05/17/18 07:40 Stool Ova and Parasite Concentrate Exam - Final 05/15/18 14:29 Stool Stool Culture - Final NO SALMONELLA, SHIGELLA OR CAMPYLOBACTER ISOLATED. 05/16/18 06:55 Urine,Clean Catch Urine Culture - Final Gram Positive Cocci 05/15/18 18:05 Urine,Catheterized Urine Culture - Final No Growth (<1,000 CFU/ML) Most Recent Lab Values WBC 5.9 K/uL (4.8-10.8) 05/20/18 06:33 RBC 3.73 Mil/uL (4.40-5.90) L 05/20/18 06:33 Hgb 12.6 g/dL (12.0-18.0) 05/20/18 06:33 Hct 36.5 % (35.0-51.0) 05/20/18 06:33 MCV 97.8 fL (80.0-94.0) H 05/20/18 06:33 MCH 33.9 pg (27.0-31.0) H 05/20/18 06:33 MCHC 34.6 g/dL (33.0-37.0) 05/20/18 06:33 RDW 13.8 % (11.5-14.5) 05/20/18 06:33 Plt Count 419 K/uL (130-400) H 05/20/18 06:33 MPV 6.8 fL (7.2-11.7) L 05/20/18 06:33 Neut % (Auto) 58.5 % (50.0-75.0) 05/20/18 06:33 Lymph % (Auto) 22.0 % (20.0-40.0) 05/20/18 06:33 [place] % (Auto) 10.5 % (0.0-10.0) H 05/20/18 06:33 Eos % (Auto) 7.5 % (0.0-4.0) H 05/20/18 06:33 Baso % (Auto) 1.5 % (0.0-2.0) 05/20/18 06:33 Neut # (Auto) 3.5 K/uL (1.8-7.0) 05/20/18 06:33 Lymph # (Auto) 1.3 K/uL (1.0-4.3) 05/20/18 06:33 [place] # (Auto) 0.6 K/uL (0.0-0.8) 05/20/18 06:33 Eos # (Auto) 0.4 K/uL (0.0-0.7) 05/20/18 06:33 Baso # (Auto) 0.1 K/uL (0.0-0.2) 05/20/18 06:33 Neutrophils % (Manual) 48 % (50-75) L 05/17/18 07:32 Band Neutrophils % 19 % (0-2) H* 05/17/18 07:32 Lymphocytes % (Manual) 12 % (20-40) L 05/17/18 07:32 Reactive Lymphs % 2 % (0-0) H 05/17/18 07:32 Monocytes % (Manual) 14 % (0-10) H 05/17/18 07:32 Eosinophils % (Manual) 5 % (0-4) H 05/17/18 07:32 Metamyelocytes % 1 % (0-0) H 05/15/18 10:35 Myelocytes % 1 % (0-0) H 05/15/18 10:35 Toxic Granulation Present 05/15/18 10:35 Dohle Bodies Present 05/15/18 10:35 Platelet Estimate Normal (NORMAL) 05/17/18 07:32 Large Platelets Present 05/15/18 10:35 RBC Morphology Normal 05/16/18 05:43 Hypochromasia (manual) Slight 05/17/18 07:32 Poikilocytosis (manual Slight 05/17/18 07:32 Anisocytosis (manual) Slight 05/17/18 07:32 Target Cells Slight 05/17/18 07:32 pO2 69 mm/Hg (30-55) H 05/15/18 20:30 VBG pH 7.36 (7.32-7.43) 05/15/18 20:30 VBG pCO2 29 mmHg (40-60) L 05/15/18 20:30 VBG HCO3 18.8 mmol/L 05/15/18 20:30 VBG Total CO2 17.3 mmol/L (22-28) L 05/15/18 20:30 VBG O2 Sat (Calc) 94.8 % (40-65) H 05/15/18 20:30 VBG Base Excess -7.7 mmol/L (0.0-2.0) L 05/15/18 20:30 VBG Potassium 3.7 mmol/L (3.6-5.2) 05/15/18 20:30 Sodium 126.0 mmol/l (132-148) L 05/15/18 20:30 Chloride 95.0 mmol/L (98-107) L 05/15/18 20:30 Glucose 136 mg/dl (75-110) H 05/15/18 20:30 Lactate 1.1 mmol/L (0.7-2.1) 05/15/18 20:30 Sodium 137 mmol/L (132-148) 05/20/18 06:33 Potassium 5.7 mmol/L (3.6-5.2) H 05/20/18 06:33 Chloride 105 mmol/L (98-107) 05/20/18 06:33 Carbon Dioxide 23 mmol/L (22-30) 05/20/18 06:33 Anion Gap 15 (10-20) 05/20/18 06:33 BUN 14 mg/dL (9-20) 05/20/18 06:33 Creatinine 1.1 mg/dL (0.8-1.5) 05/20/18 06:33 Est GFR ( Amer) > 60 05/20/18 06:33 Est GFR (Non-Af Amer) > 60 05/20/18 06:33 Random Glucose 98 mg/dL (75-110) 05/20/18 06:33 Serum Osmolality 279 mosm/kg (272-300) 05/17/18 07:32 Calcium 9.5 mg/dl (8.6-10.4) 05/20/18 06:33 Phosphorus 1.8 mg/dL (2.5-4.5) L 05/19/18 06:51 Magnesium 1.9 mg/dL (1.6-2.3) 05/19/18 06:51 Total Bilirubin 0.6 mg/dL (0.2-1.3) 05/20/18 06:33 AST 115 U/L (17-59) H D 05/20/18 06:33 ALT 79 U/L (21-72) H D 05/20/18 06:33 Alkaline Phosphatase 55 U/L (38-126) 05/20/18 06:33 Total Protein 6.4 g/dL (6.3-8.3) 05/20/18 06:33 Albumin 3.5 g/dL (3.5-5.0) 05/20/18 06:33 Globulin 2.8 gm/dL (2.2-3.9) 05/20/18 06:33 Albumin/Globulin Ratio 1.2 (1.0-2.1) 05/20/18 06:33 Lipase 139 U/L (23-300) 05/15/18 10:35 Prostate Specific Ag 62.2 ng/mL (0.00-4.0) H 05/16/18 05:43 Free PSA >17.0 ng/mL 05/15/18 20:31 % Free PSA Not calculated % (calc) (>25) 05/15/18 20:31 Total PSA 93.6 ng/mL (< or = 4.0) H 05/15/18 20:31 Procalcitonin 0.55 NG/ML (0.19-0.49) H 05/17/18 20:23 Venous Blood Potassium 3.7 mmol/L (3.6-5.2) 05/15/18 20:30 Urine Color Renuka (YELLOW) 05/16/18 06:55 Urine Clarity Hazy (Clear) 05/16/18 06:55 Urine pH 5.0 (5.0-8.0) 05/16/18 06:55 Ur Specific [place] 1.015 (1.003-1.030) 05/16/18 06:55 Urine Protein Negative mg/dL (NEGATIVE) 05/16/18 06:55 Urine Glucose (UA) Normal mg/dL (Normal) 05/16/18 06:55 Urine Ketones Negative mg/dL (NEGATIVE) 05/16/18 06:55 Urine Blood Negative (NEGATIVE) 05/16/18 06:55 Urine Nitrate Negative (NEGATIVE) 05/16/18 06:55 Urine Bilirubin Negative (NEGATIVE) 05/16/18 06:55 Urine Urobilinogen Normal mg/dL (0.2-1.0) 05/16/18 06:55 Ur Leukocyte Esterase Neg Bhavin/uL (Negative) 05/16/18 06:55 Urine WBC (Auto) 8 /hpf (0-5) H 05/16/18 06:55 Urine RBC (Auto) 2 /hpf (0-3) 05/16/18 06:55 Ur Squamous Epith Cells 1 /hpf (0-5) 05/16/18 06:55 Amorphous Sediment Rare /ul (<OCC) H 05/16/18 06:55 Urine Bacteria Rare (<OCC) 05/16/18 06:55 Hyaline Casts 6-10 /lpf (0-2) H 05/15/18 15:32 Urine Osmolality 366 mosm/kg (300-1000) 05/16/18 06:55 Ur Random Creatinine 200.2 mg/dL 05/16/18 06:55 Ur Random Sodium 20 mmol/L 05/16/18 06:55 Urine Chloride 29 mmol/L (32-290) L 05/15/18 07:40 C. difficile Ag & Toxin Negative (NEGATIVE) 05/15/18 14:29 - Hospital Course Hospital Course: This is a 68 year old male with past medical history significant for HTN, CKD, Hyperlipidemia, BPH, diverticulosis noted on recent colonscopy (without prior complaints or previous flare-up) who presented on 05/15/18 with complaints of diarrhea for the past two days. Patient admitted to watery brown colored, non bloody diarrhea at that time. Patient stated that he has had upwards of 10 watery diarrheal bowel movements a day. Patient stated that he had frisian toast the Tuesday morning prior around 5 AM and later went to the [facility] festival where he ate a sausage hero from a food cart. Later on that day, he had a few beers in [place]. Patient stated that he has consumed both of these foods many times previously in the past without adverse effects. He denied being in contact with anyone that may have consumed a similar meal. Patient went to visit an urgent care earlier on day of admission for evaluation. He stated that he was not sure if he would be able to get an appointment from his PMD - and thus went to the urgent care. While there, he was told that he had diverticulitis. He was given antibiotics (Cipro and Flagyl) to take for a 10 day course. He was also told to go straight to the emergency room. Patient denied subjective fevers or chills, nausea, vomiting, subjective abdominal pain, leg pain, paresthesias, hematemesis, hematochezia, dysuria, headaches, chest pain or recent long distance travel at this time. Pt was treated for diverticulitis/enterocolitis. Urinary retention and TRACEY noted on admission with BPH, improved on day of discharge. Nephrology, GI, ID, and Urology consulted. Pertinent imagin05/15/18-CT abd/pelvis with diverticular findings noted in the sigmoid colon. Findings suspicious for diverticulitis. 05/16/18-CT abd/pelvis PO contrast: Severe ileitis and hayes colitis, likely infectious/inflammatory in etiology (see full report). Bladder U/s 05/15: thick walled urinary bladder concerning for possible cystitis vs. bladder outlet obstruction, unable to void w/ post-void residual of 104 cc, heterogenous and prominent prostate, R ureteral jet not well visualized TRACEY - resolved with gentle IVF hydration. Pt instructed to f/u with Dr. Charlton outpatient for management of CKD. Urinary retention - pt was straight cathed in ED. Urology (Dr. Deshpande) was consulted for BPH and urinary retention. Found to have elevated PSA 62.2 on work-up inpatient. Pt was placed on Flomax daily. Pt was instructed to f/u with Dr. Ti Deshpande outpatient for possible prostate biopsy. Urine cx clean catch grew gram pos cocci. Diverticulitis/colitis: -Pt was treated with Zosyn/Flagyl during admission; on d/c instricted to [facility] plete 7 day course of antibiotics. -Blood and stool cxs demonstrated no growth. C. diff toxin negative. -GI consulted (Dr. Navarrete/Letha); ID consulted (Dr. Aldrich) -Pt had hx Colonoscopy in Aug 2017 that demonstrated diverticulosis -Pt instructed to follow-up with GI outpatient for repeat colonoscopy in 6-8 weeks after resolution of symptoms. Discharge Exam - Head Exam Head Exam: ATRAUMATIC, NORMOCEPHALIC - Eye Exam Eye Exam: EOMI, Normal appearance, PERRL - ENT Exam ENT Exam: Mucous Membranes Moist - Respiratory Exam Respiratory Exam: Clear to PA & Lateral, NORMAL BREATHING PATTERN, UNREMARKABLE - Cardiovascular Exam Cardiovascular Exam: REGULAR RHYTHM, +S1, +S2. absent: Gallop, Rubs, Systolic Murmur - GI/Abdominal Exam GI & Abdominal Exam: Normal Bowel Sounds, Soft, Unremarkable. absent: Tenderness - Extremities Exam Extremities exam: full ROM, normal capillary refill, normal inspection, pedal pulses present - Neurological Exam Neurological exam: Alert, CN II-XII Intact, Oriented x3 - Psychiatric Exam Psychiatric exam: Normal Affect, Normal Mood - Skin Skin Exam: Dry, Intact, Normal Color, Warm Discharge Plan - Discharge Medications Prescriptions: amLODIPine [Norvasc] 5 mg PO DAILY #30 tab Ciprofloxacin [Cipro] 500 mg PO BID #4 tab metroNIDAZOLE [Flagyl] 500 mg PO Q8 #6 tab - Follow Up Plan Condition: FAIR Disposition: HOME/ ROUTINE Instructions: Diarrhea in Adolescents and Adults, Ciprofloxacin (Systemic), Quitting Smoking for Older Adults, Metronidazole (Systemic), Inflammatory Bowel Disease (DC), Amlodipine Additional Instructions: Patient medically stable for discharge to home. Please follow-up with your primary care provider within 1 week of discharge (Dr. Ridley). Please have liver function tests rechecked by your primary care doctor. Please follow-up with Dr. Deshpande (Urology) after discharge for elevated PSA and possible prostate biopsy. Please follow-up with Dr. Monae (Gastroenterology) within 1 week of discharge for scheduling repeat colonoscopy in 6-8 weeks. Please follow-up with Dr. Charlton (Nephrology) within 1-2 weeks of discharge. Please take antibiotics for the next 2 days as prescribed. Do not consume alcohol while on antibiotics. Advance diet as tolerated at home. Note change in blood pressure medication to Norvasc 5 mg daily. Stop taking Valsartan-Hdrocholorthiazide unless instructed by your primary care doctor. Should symptoms recur or worsen, please call your primary care provider or report to your nearest emergency department. Referrals: Juan Daniel Ridley [Staff Provider] - Kyle Charlton MD [Staff Provider] - Lev Monae MD [Staff Provider] - Ti Deshpande MD [Staff Provider] - <Gracie Epstein V - Last Filed: 05/21/18 16:55> Provider - Provider Date of Admission: 05/15/18 17:18 Attending physician: Andi Cheng MD Hospital Course - Lab Results Lab Results: Micro Results 05/15/18 14:45 Blood Blood Culture - Final NO GROWTH AFTER 5 DAYS 05/15/18 14:45 Blood Gram Stain - Final TEST NOT PERFORMED 05/15/18 14:15 Blood Blood Culture - Final NO GROWTH AFTER 5 DAYS 05/15/18 14:15 Blood Gram Stain - Final TEST NOT PERFORMED 05/17/18 07:40 Stool Ova and Parasite Concentrate Exam - Final 05/15/18 14:29 Stool Stool Culture - Final NO SALMONELLA, SHIGELLA OR CAMPYLOBACTER ISOLATED. 05/16/18 06:55 Urine,Clean Catch Urine Culture - Final Gram Positive Cocci 05/15/18 18:05 Urine,Catheterized Urine Culture - Final No Growth (<1,000 CFU/ML) Most Recent Lab Values WBC 5.9 K/uL (4.8-10.8) 05/20/18 06:33 RBC 3.73 Mil/uL (4.40-5.90) L 05/20/18 06:33 Hgb 12.6 g/dL (12.0-18.0) 05/20/18 06:33 Hct 36.5 % (35.0-51.0) 05/20/18 06:33 MCV 97.8 fL (80.0-94.0) H 05/20/18 06:33 MCH 33.9 pg (27.0-31.0) H 05/20/18 06:33 MCHC 34.6 g/dL (33.0-37.0) 05/20/18 06:33 RDW 13.8 % (11.5-14.5) 05/20/18 06:33 Plt Count 419 K/uL (130-400) H 05/20/18 06:33 MPV 6.8 fL (7.2-11.7) L 05/20/18 06:33 Neut % (Auto) 58.5 % (50.0-75.0) 05/20/18 06:33 Lymph % (Auto) 22.0 % (20.0-40.0) 05/20/18 06:33 [place] % (Auto) 10.5 % (0.0-10.0) H 05/20/18 06:33 Eos % (Auto) 7.5 % (0.0-4.0) H 05/20/18 06:33 Baso % (Auto) 1.5 % (0.0-2.0) 05/20/18 06:33 Neut # (Auto) 3.5 K/uL (1.8-7.0) 05/20/18 06:33 Lymph # (Auto) 1.3 K/uL (1.0-4.3) 05/20/18 06:33 [place] # (Auto) 0.6 K/uL (0.0-0.8) 05/20/18 06:33 Eos # (Auto) 0.4 K/uL (0.0-0.7) 05/20/18 06:33 Baso # (Auto) 0.1 K/uL (0.0-0.2) 05/20/18 06:33 Neutrophils % (Manual) 48 % (50-75) L 05/17/18 07:32 Band Neutrophils % 19 % (0-2) H* 05/17/18 07:32 Lymphocytes % (Manual) 12 % (20-40) L 05/17/18 07:32 Reactive Lymphs % 2 % (0-0) H 05/17/18 07:32 Monocytes % (Manual) 14 % (0-10) H 05/17/18 07:32 Eosinophils % (Manual) 5 % (0-4) H 05/17/18 07:32 Metamyelocytes % 1 % (0-0) H 05/15/18 10:35 Myelocytes % 1 % (0-0) H 05/15/18 10:35 Toxic Granulation Present 05/15/18 10:35 Dohle Bodies Present 05/15/18 10:35 Platelet Estimate Normal (NORMAL) 05/17/18 07:32 Large Platelets Present 05/15/18 10:35 RBC Morphology Normal 05/16/18 05:43 Hypochromasia (manual) Slight 05/17/18 07:32 Poikilocytosis (manual Slight 05/17/18 07:32 Anisocytosis (manual) Slight 05/17/18 07:32 Target Cells Slight 05/17/18 07:32 pO2 69 mm/Hg (30-55) H 05/15/18 20:30 VBG pH 7.36 (7.32-7.43) 05/15/18 20:30 VBG pCO2 29 mmHg (40-60) L 05/15/18 20:30 VBG HCO3 18.8 mmol/L 05/15/18 20:30 VBG Total CO2 17.3 mmol/L (22-28) L 05/15/18 20:30 VBG O2 Sat (Calc) 94.8 % (40-65) H 05/15/18 20:30 VBG Base Excess -7.7 mmol/L (0.0-2.0) L 05/15/18 20:30 VBG Potassium 3.7 mmol/L (3.6-5.2) 05/15/18 20:30 Sodium 126.0 mmol/l (132-148) L 05/15/18 20:30 Chloride 95.0 mmol/L (98-107) L 05/15/18 20:30 Glucose 136 mg/dl (75-110) H 05/15/18 20:30 Lactate 1.1 mmol/L (0.7-2.1) 05/15/18 20:30 Sodium 137 mmol/L (132-148) 05/20/18 06:33 Potassium 5.7 mmol/L (3.6-5.2) H 05/20/18 06:33 Chloride 105 mmol/L (98-107) 05/20/18 06:33 Carbon Dioxide 23 mmol/L (22-30) 05/20/18 06:33 Anion Gap 15 (10-20) 05/20/18 06:33 BUN 14 mg/dL (9-20) 05/20/18 06:33 Creatinine 1.1 mg/dL (0.8-1.5) 05/20/18 06:33 Est GFR ( Amer) > 60 05/20/18 06:33 Est GFR (Non-Af Amer) > 60 05/20/18 06:33 Random Glucose 98 mg/dL (75-110) 05/20/18 06:33 Serum Osmolality 279 mosm/kg (272-300) 05/17/18 07:32 Calcium 9.5 mg/dl (8.6-10.4) 05/20/18 06:33 Phosphorus 1.8 mg/dL (2.5-4.5) L 05/19/18 06:51 Magnesium 1.9 mg/dL (1.6-2.3) 05/19/18 06:51 Total Bilirubin 0.6 mg/dL (0.2-1.3) 05/20/18 06:33 AST 115 U/L (17-59) H D 05/20/18 06:33 ALT 79 U/L (21-72) H D 05/20/18 06:33 Alkaline Phosphatase 55 U/L (38-126) 05/20/18 06:33 Total Protein 6.4 g/dL (6.3-8.3) 05/20/18 06:33 Albumin 3.5 g/dL (3.5-5.0) 05/20/18 06:33 Globulin 2.8 gm/dL (2.2-3.9) 05/20/18 06:33 Albumin/Globulin Ratio 1.2 (1.0-2.1) 05/20/18 06:33 Lipase 139 U/L (23-300) 05/15/18 10:35 Prostate Specific Ag 62.2 ng/mL (0.00-4.0) H 05/16/18 05:43 Free PSA >17.0 ng/mL 05/15/18 20:31 % Free PSA Not calculated % (calc) (>25) 05/15/18 20:31 Total PSA 93.6 ng/mL (< or = 4.0) H 05/15/18 20:31 Procalcitonin 0.55 NG/ML (0.19-0.49) H 05/17/18 20:23 Venous Blood Potassium 3.7 mmol/L (3.6-5.2) 05/15/18 20:30 Urine Color [place] (YELLOW) 05/16/18 06:55 Urine Clarity Hazy (Clear) 05/16/18 06:55 Urine pH 5.0 (5.0-8.0) 05/16/18 06:55 Ur Specific [place] 1.015 (1.003-1.030) 05/16/18 06:55 Urine Protein Negative mg/dL (NEGATIVE) 05/16/18 06:55 Urine Glucose (UA) Normal mg/dL (Normal) 05/16/18 06:55 Urine Ketones Negative mg/dL (NEGATIVE) 05/16/18 06:55 Urine Blood Negative (NEGATIVE) 05/16/18 06:55 Urine Nitrate Negative (NEGATIVE) 05/16/18 06:55 Urine Bilirubin Negative (NEGATIVE) 05/16/18 06:55 Urine Urobilinogen Normal mg/dL (0.2-1.0) 05/16/18 06:55 Ur Leukocyte Esterase Neg Bhavin/uL (Negative) 05/16/18 06:55 Urine WBC (Auto) 8 /hpf (0-5) H 05/16/18 06:55 Urine RBC (Auto) 2 /hpf (0-3) 05/16/18 06:55 Ur Squamous Epith Cells 1 /hpf (0-5) 05/16/18 06:55 Amorphous Sediment Rare /ul (<OCC) H 05/16/18 06:55 Urine Bacteria Rare (<OCC) 05/16/18 06:55 Hyaline Casts 6-10 /lpf (0-2) H 05/15/18 15:32 Urine Osmolality 366 mosm/kg (300-1000) 05/16/18 06:55 Ur Random Creatinine 200.2 mg/dL 05/16/18 06:55 Ur Random Sodium 20 mmol/L 05/16/18 06:55 Urine Chloride 29 mmol/L (32-290) L 05/15/18 07:40 C. difficile Ag & Toxin Negative (NEGATIVE) 09/24/18 14:29 Attending/Attestation - Attestation I have personally seen and examined this patient.: Yes I have fully participated in the care of the patient.: Yes I have reviewed all pertinent clinical information, including history, physical exam and plan: Yes Notes (Text): This is a late computer entry for 05/20/2018. Patient seen, examined, case discussed with esthetician and manager medical spa. Patient seen this morning. Denies abdominal pain. Reports stool is more formed. Denies fever denies chills reports he is urinating well discussed with nurses bedside as well that patient observed is formed stool. Patient order for Kayexlayte given that he has mild hyperkalemia. Patient reporting that he's taking a banana with each meal for the past 2 days I did indicate to him to start doing that given that the potassium is rising. I also did indicate to the patient that his liver enzymes are rising. It is likely due to IV antibiotic. I did recommend him to follow-up with Dr. Ridley. For repeat liver function test following completion of antibiotic therapy. patient to complete 7 day course of Cipro and Flagyl. Discharge instructions include: Patient follow-up with Dr. Deshpande at the end of May for prostate biopsy recommended to get medical records for PSA level to bring to appointment. Patient follow-up with Dr. Monae for repeat colonoscopy. Patient to follow-up with nephrology at in July to monitor renal function. Patient follow-up with primary care doctor including for routine such as flu vaccine and repeat liver function tests. Patient recommended to stop olemasartan given side effect of hyperkalemia. Recommend to start Norvasc 5 mg once a day for blood pressure control. Discussed side effects of medication including edema, and flushing. This is a summary of patient's hospitalization. Please see EMR for full detail record. Discharge diagnoses: (1) Diverticulitis stable Bandemia solved Assessment and Plan: * GI, Dr. Navarrete on board help appreciated * Infectious disease, Dr. Aldrich on board help appreciated * Continue to monitor white count, bandemia, and temperature * CAT scan abdomen and pelvis without by mouth or IV contrast (05/15/18): Fluid filled mildly dilated small bowel loops and fluid in the colon likely related to nonspecific infectious/inflammatory enterocolitis. Sigmoid diverticulosis is apparent moderate circumferential mural thickening in the sigmoid colon is nonspecific could be related to underdistention however mild superimposed acute diverticulitis cannot be excluded. Severe enlargement of the prostaglandin mass effect on the [place] urinary bladder. Severe circumferential mural thickening of the ureteral narrowing bladder wall could be related to underdistention. * CAT scan abdomen and pelvis with by mouth contrast only 05/16/2018: Severe ileitis and hayes colitis likely infectious/inflammatory in etiology * Abdominal obstructive series (05/16/18) noted for unremarkable radiographs of the chest and abdomen and no evidence of mechanical bowel obstruction. * Zosyn 2.25 IV every 8 hours * Flagyl 500 g IV every 8 hours * There is a shortage of IV Flagyl per resident discussion with the pharmacy we have converted to PO Flagyl. * Patient had colonoscopy August 2017- Refer to complete results in medical record. * Patient appears he seen by the Dr. Navarrete/Letha group and was referred connotes group given the winter for the colonoscopy. * Blood cultures from 05/15/2018: No growth * Stool culture from May 05: No Salmonella, Shigella, Campylobacter * Urine culture from May 15: gram positive cocci * stool ova and parasites: negative * Procalcitonin: 2.21-->0.55 Status: Acute (2) Acute renal failure resolved Assessment and Plan: * Nephrology on board help appreciated * Urology on board help appreciated * Etiology including dehydration secondary to diarrhea patient and is currently on home ARB and statin * Patient start on IV fluids * Order for bladder scan every shift * R2 urinary output * PSAs elevated * Will f/u outpatient with urology for further workup including prostate biopsy * BUN/Cr have normalized * Will f/u nephrology as outpatient * Bladder scan from 05/15/2018: Thick-walled urinary bladder measuring up to 8 mm concerning for cystitis versus bladder outlet obstruction. No gross calculi identified. Prevoid bladder volume of 103 mL. Patient was unable to void. Heterogeneous and prominent prostate measuring up to 4.7 cm. Concern for possible cystitis Status: Chronic (3) Urinary retention stable Assessment and Plan: * Urology also on board * Per nursing, patient had to be straight cath-ed in order to receive UA. * Patient denies signs of retention prior to this admission * UA showed hyaline casts and amorphous sediments * Bladder scan from 05/15/2018: Thick-walled urinary bladder measuring up to 8 mm concerning for cystitis versus bladder outlet obstruction. No gross calculi identified. Prevoid bladder volume of 103 mL. Patient was unable to void. Heterogeneous and prominent prostate measuring up to 4.7 cm. Concern for possible cystitis * Monitor ins and outs * Continue Flomax * Elevated PSA * Will f/u with urology as outpatient for prostate biopsy Status: Acute (4) HTN (hypertension) control Assessment and Plan: * Normotensive at this time. * Will monitor and medically manage at this time. * Hold ARB on discharge * Start Norvasc 5 mg once a day Status: Chronic (5) Enlarged prostate Assessment and Plan: * Chronic. Confirmed findings on CT imaging. Refer to full report. * Patient follows up with Urologist, Dr. Ti Deshpande for management he is currently on vacation [facility] * Continue Flomax 0.4 mg PO daily * Elevated PSA * Follow-up outpatient for prostate biopsy Status: Acute (6) Prophylactic measure Assessment and Plan: * DVT prophylaxis- Heparin 5,000 units Q8 SC * Ambulates * No indication for GI prophylaxis at this time * IV fluids * Bacid 1 tab by mouth twice a day Status: Acute
== END 2018-05-20 14:50 | disposition home or self-care (01) | DRG 392 ==
LOC: C.ER 09:52 → C.9E 17:18 → C.3T 18:40
PROVIDERS: ADMIT Internal Medicine; ATTEND Internal Medicine
DX: A09 Infectious gastroenteritis and colitis, unspecified (principal); N17.9 Acute kidney failure, unspecified; E87.1 Hypo-osmolality and hyponatremia; K57.32 Diverticulitis of large intestine without perforation or abscess without bleeding; F17.210 Nicotine dependence, cigarettes, uncomplicated; N40.1 Benign prostatic hyperplasia with lower urinary tract symptoms; R33.8 Other retention of urine; E78.00 Pure hypercholesterolemia, unspecified; E86.0 Dehydration; E87.5 Hyperkalemia; I12.9 Hypertensive chronic kidney disease with stage 1 through stage 4 chronic kidney disease, or unspecified chronic kidney disease; M51.36 Other intervertebral disc degeneration, lumbar region; N18.9 Chronic kidney disease, unspecified; N32.0 Bladder-neck obstruction; Z79.899 Other long term (current) drug therapy

== ENCOUNTER 2018-06-30 12:46 | Emergency (ER) | payer MEDICARE, BC ==
[2018-06-30 12:46] VITALS: BMI 20.5
[2018-06-30 12:59] VITALS: RESP 18
--- NOTE | 2018-06-30 13:04 | C.PDOC ---
History Of Present Illness 68-year-old male with a prior history of urinary retention presents to the ED for evaluation urinary retention for several hours starting today. Patient states he is scheduled urologist appointment in 3 days. Admits to taking Flomax daily. Denies fever, nausea, fever, diarrhea, abdominal pain, flank pain, and any other associated symptoms. Time Seen by Provider: 06/30/18 12:54 Chief Complaint (Nursing): Male Genitourinary History Per: Patient History/Exam Limitations: no limitations Onset/Duration Of Symptoms: Hrs Current Symptoms Are (Timing): Still Present Past Medical History Reviewed: Historical Data, Nursing Documentation, Vital Signs Vital Signs: Last Vital Signs Temp 98.5 F 06/30/18 12:50 Pulse 100 H 06/30/18 12:50 Resp 18 06/30/18 12:50 BP 173/89 H 06/30/18 12:50 Pulse Ox 100 06/30/18 12:50 - Medical History PMH: Benign Prostatic Hyperplasia, HTN, Hypercholesterolemia Denies: Chronic Kidney Disease - [facility] Procedures ENDOSC POLYPECTOMY OF LG INTEST (11/08/13) Family History: States: Unknown Family Hx - Social History Hx Alcohol Use: Yes Hx Substance Use: No - Immunization History Hx Tetanus Toxoid Vaccination: No Hx Influenza Vaccination: Yes Hx Pneumococcal Vaccination: Yes Review Of Systems Constitutional: Negative for: Fever Gastrointestinal: Negative for: Nausea, Vomiting, Abdominal Pain, Diarrhea, Other (flank pain. ) Genitourinary: Positive for: Other (urinary retention. ) Physical Exam - Physical Exam Appears: Well, Non-toxic, Other (uncomfortable.) Skin: Normal Color, Warm, Dry Head: Atraumatic, Normacephalic Eye(s): bilateral: Normal Inspection Oral Mucosa: Moist Neck: Normal ROM, Supple Chest: Symmetrical, No Deformity Cardiovascular: Rhythm Regular, No Murmur, Other (tachycardic. ) Respiratory: No Rales, No Rhonchi, No Wheezing Gastrointestinal/Abdominal: Normal Exam, No Soft, Tenderness (suprapubic. ), No Mass, Distention, No Guarding, No Rebound Neurological/Psych: Oriented x3, Normal Speech ED Course And Treatment O2 Sat by Pulse Oximetry: 100 (RA) Pulse Ox Interpretation: Normal Progress Note: Plan: Cipro. Urine culture. Urinalysis. . Bladder scan shows: 1L of urine, cabrera catheter was inserted. Update/Progress: Patient is stable for discharge home with a leg bag. Advised to follow up with urologist. Prescribed Cipro. Disposition Counseled Patient/Family Regarding: Studies Performed, Diagnosis, Need For Followup, Rx Given - Disposition Referrals: Ti Deshpande MD [Staff Provider] - Disposition: HOME/ ROUTINE Disposition Time: 13:45 Condition: STABLE Additional Instructions: FOLLOW UP WITH DR TI DESHPANDE ON TUESDAY SCHEDULED CONTINUE TAKING YOUR FLOMAX RETURN TO ER IF YOU HAVE ANY CONCERNING SYMPTOMS Prescriptions: Ciprofloxacin [Cipro] 1 tab PO BID #14 tab Instructions: Urinary Retention (DC) Forms: [employer] (Tajik) Print Language: MALAGASY - Clinical Impression Clinical Impression: Urinary retention, UTI (urinary tract infection) - Scribe Statement The provider has reviewed the documentation as recorded by the Scribe (Esther Munoz) Provider Attestation: All medical record entries made by the Scribe were at my direction and per sonally dictated by me. I have reviewed the chart and agree that the record accurately reflects my personal performance of the history, physical exam, medical decision making, and the department course for this patient. I have also personally directed, reviewed, and agree with the discharge instructions and disposition.
[2018-06-30 13:35] LABS: URINE BACTERIA RARE (<OCC); URINE BILIRUBIN NEGATIVE (NEGATIVE); URINE BLOOD NEGATIVE (NEGATIVE); URINE CLARITY Clear (Clear); URINE COLOR Yellow (YELLOW); URINE GLUCOSE (UA) NORMAL (Normal); URINE LEUKOCYTE ESTERASE NEG Leu/uL (Negative); URINE PROTEIN NEGATIVE (NEGATIVE); URINE UROBILINOGEN NORMAL mg/dL (0.2-1.0)
[2018-06-30 14:09] VITALS: BP 161/96; PULSE 88; TEMP 98.2
[2018-06-30 14:17] VITALS: O2SAT 100
== END 2018-06-30 14:18 | disposition home or self-care (01) ==
LOC: C.ER 12:46
DX: R33.9 Retention of urine, unspecified (principal); N39.0 Urinary tract infection, site not specified

== ENCOUNTER 2018-07-04 11:02 | Day surgery (SDC) | payer MEDICARE, BC ==
[2018-07-04 11:45] LABS: BASO # 0.1 K/uL (0.0-0.2); BASO % 1.4 % (0.0-2.0); EOS # 0.3 K/uL (0.0-0.7); EOS % 3.8 % (0.0-4.0); HEMOGLOBIN 13.8 g/dL (12.0-18.0); LYMPH % 26.2 % (20.0-40.0); MEAN CELL VOLUME 97.4 fL (80.0-94.0); MEAN CORPUSCULAR HEMOGLOBIN 34.1 pg (27.0-31.0); MEAN CORPUSCULAR HGB CONC 34.9 g/dL (33.0-37.0); MEAN PLATELET VOLUME 6.7 fL (7.2-11.7); MONO # 0.6 K/uL (0.0-0.8); NEUT # 4.7 K/uL (1.8-7.0); NEUT % 60.6 % (50.0-75.0); RBC 4.06 Mil/uL (4.40-5.90); RED CELL DISTRIBUTION WIDTH 13.7 % (11.5-14.5); WHITE BLOOD COUNT 7.8 K/uL (4.8-10.8)
[2018-07-04 12:00] LABS: BLOOD UREA NITROGEN 23 mg/dL (9-20); CALCIUM 9.9 mg/dl (8.6-10.4); GFR NON-AFRICAN AMERICAN > 60
[2018-07-04] MEDS ORDERED: cefTRIAXone 1 gm 1 GM/100 ML BAG IVPB ONE (14:52)
[2018-07-04] MEDS ORDERED: Lidocaine 2% Jelly (Uro-Jet) ONE (14:54)
[2018-07-04] MEDS ORDERED: Propofol 10 mg/ml Inj (20 ML) ONE (14:55)
[2018-07-04] MEDS ORDERED: Midazolam 2 MG/2 ML VIAL ONE (14:55)
[2018-07-04] MEDS: Gentamicin 80 mg in 0.9% NS 80 MG/100 ML BAG IVPB ONE ×2 (15:14→15:18)
[2018-07-04] MEDS ORDERED: Oxycodone/Acetaminophen 5/325 mg Tab PO PRN (15:32)
[2018-07-04] MEDS ORDERED: HYDROmorphone 0.5 mg/0.5 ml ISec IVP PRN (15:34)
[2018-07-04] MEDS ORDERED: Lactated Ringer's 1,000 ML IV SCH (15:45)
[2018-07-04 17:43] VITALS: RESP 16
[2018-07-04 19:19] VITALS: BP 128/62; PULSE 84; TEMP 98.6; O2SAT 98
--- NOTE | 2018-07-05 00:59 | OP ---
PROCEDURE DATE: 07/04/2018 PREOPERATIVE DIAGNOSES: Voiding dysfunction, urinary retention, elevated PSA, nocturia, decreased force of stream. POSTOPERATIVE DIAGNOSES: Voiding dysfunction, urinary retention, elevated PSA, nocturia, decreased force of stream. PROCEDURE: Ultrasound of the prostate and ultrasound-guided prostate biopsy. SURGEON: Chan Deshpande MD SPECIMEN OBTAINED: Prostate cores, total of 12 cores. I started from the random, resection in quadrants, left base, left mid, left apex, right base, right mid, right apex, within medial lateral, medial lateral, and medial lateral for a total of 12 cores. Taken down in 2 labelled jars. Postbiopsy rectal exam is within normal limits. The prostate size measured to be about 50 g to 60 g positive. The Miranda can be identified. There was no specific hypoechoic lesions. Pictures were taken and saved. INDICATIONS: See history and physical for details. The patient is here for the above procedure. DESCRIPTION OF PROCEDURE: Time-out was called to confirm the patient. Antibiotic prophylaxis was used. He is on Cipro. We gave gentamicin and Rocephin. Ultrasound probe inserted via the rectum is 7.5 MHz BK probe. We took pictures, transverse and longitudinal. No specific major abnormalities detected. Rectal exam was also within normal limits. We now began our random biopsies; resection of left base, left mid, left apex, right base, right mid, and right apex. Each quadrant, we did two. Each area, we did two. Each sect , we did two biopsies, medial lateral and medial lateral, a total of 12 cores. Postbiopsy rectal exam within normal limits. The patient tolerated without complications. Chan Deshpande MD
--- NOTE | 2018-07-05 06:24 | HP ---
UROLOGY ADMISSION REASON FOR ADMISSION: Elevated PSA, urinary retention, voiding dysfunction. He has persistent elevated PSA. He is here today for a transrectal ultrasound and ultrasound-guided prostate biopsy with antibiotic prophylaxis. Surgeon is . The patient presented with retention. He has been voiding on and off with difficulty. He has an elevated PSA, he has a gigantic prostate. I am just worried little bit about malignancy. It is mostly I think a benign component. But after discussing options with the patient, we certainly do want to overlook malignancy in a young 68-year-old gentleman, so we discussed options. He is here today for biopsy of his prostate. PAST MEDICAL AND SURGICAL HISTORY: As listed in the chart. The patient is a doctor. REVIEW OF SYSTEMS: As listed above. No weight loss, chest pain, or shortness of breath. I do want to mention that he is currently on antibiotics and he is on Flomax. Last Tuesday, he was in the emergency room with retention. See previous notes. We have tried a microwave thermal therapy. He has a fairly large prostate. It is at the upper limits for doing the microwave, but he did not really want surgery (I do think he is going to eventually come to surgical intervention) depending what the biopsy show whether with a GreenLight laser with electrocautery or even an open operation at this point. We will have to discuss. MEDIATIONS: See chart. ALLERGIES: HE HAS NO KNOWN DRUG ALLERGIES. SOCIAL HISTORY: He works for the [employer] in the [employer] system work. Nonsmoker. PHYSICAL EXAMINATION: GENERAL: A well-nourished male, in no acute distress. VITAL SIGNS: Noted to be within normal limits. LUNGS: Clear. HEART: S1 and S2. ABDOMEN: Soft and nontender. No flank mass appreciated. GENITOURINARY: Normal phallus without discharge. No testicular mass appreciated. RECTAL EXAM: Pretty big prostate, soft and smooth. One of the comment to about body habitus is he lacks hair diffusely. The name of this condition is but it is noteworthy. DIAGNOSES: Elevated prostate-specific antigen, voiding dysfunction, urinary retention, decreased force of stream. ASSESSMENT AND PLAN: A very pleasant gentleman with the above history. I do want to mention that he is intermittently on testosterone. It is difficult to tell he is currently actively taking it, but definitely he was taking it before in the past. After discussing the options with the patient, he is here today for an ultrasound of the prostate and ultrasound-guided prostate biopsy. We are going to provide antibiotic prophylaxis. He is already on antibiotics. We will provide extra antibiotics. Further plans will follow. We will provide: 1. Rocephin. 2. Gentamicin. 3. He was already on Cipro in the past although he has not taken in the last day. We are going to do an ultrasound of the prostate and ultrasound-guided biopsy. Chan Deshpande MD
--- NOTE | 2018-07-05 12:18 | CARD ---
APPROVED REPORT Date of service: 07/04/2018 EKG Measurement Heart [id number] <Conclusion> Normal sinus rhythm Normal ECG
== END 2018-07-04 19:13 | disposition home or self-care (01) ==
LOC: C.SDS 11:02
PROVIDERS: ATTEND Urology
DX: R97.20 Elevated prostate specific antigen [PSA] (principal); R33.9 Retention of urine, unspecified; R35.1 Nocturia
CPT/HCPCS: 36415; 55700; 80048; 85025; 88305; 88342; 93005; J0696; J1580